=== PATIENT | male | born 1935 | race Caucasian/White ===

== ENCOUNTER 2017-05-27 07:26 | Day surgery (SDC) | payer OTHER ==
[~2017-05-27] VITALS: Ht 188 cm; Wt 101.8 kg
[~2017-05-27 07:26] MED LIST: ATOR80TA45 PO; DITR15TA PO; LISI-515 PO; METO50TA PO; TIMO0.5S30 EACH EYE; WARF-58 PO
[2017-05-27 07:43] VITALS: BP 177/83; PULSE 59; RESP 20; TEMP 98.1; O2SAT 95
[2017-05-27] MEDS ORDERED: GABA300C5 PO (07:51)
[2017-05-27] MEDS ORDERED: SODIUM CHLOR 0.9% 1000 ML IV SCH (08:00)
[2017-05-27] MEDS ORDERED: SODIUM CHLORIDE 2 ML FLUSH PRN IV FLUSH (08:00)
[2017-05-27] MEDS ORDERED: MIDAZOLAM HCL 2 MG/2 ML VIAL ONE (08:33)
[2017-05-27 09:00] VITALS: BP 168/80; PULSE 63; RESP 18; TEMP 97.9; O2SAT 96
[2017-05-27] MEDS ORDERED: SODIUM CHLORIDE 2 ML FLUSH BID IV FLUSH SCH (09:00)
[2017-05-27 09:15] VITALS: BP 140/78; PULSE 60; RESP 18; O2SAT 97
--- NOTE | 2017-05-27 09:18 | PD.RAD ---
Post Procedure Progress Note Pre Procedure Diagnosis: (1) Colon cancer Post Procedure Diagnosis: (1) Colon cancer Procedure Date: May 27, 2017 Supervising Radiologist: Mukesh Swanson Proceduralist/Assist: Ryan Michael, RT(R), Tammy Bosch RT(R) Anesthesia: Conscious Sedation Plan of Activity Patient to Unit: [facility] Patient Condition: Good See PACS Report for procedural detail/treatment Mukesh Swanson MD May 27, 2017 09:18
[2017-05-27 09:45] VITALS: BP 150/74; PULSE 49; RESP 18; O2SAT 97
--- NOTE | 2017-05-27 09:50 | RADRPT ---
EXAM DATE/TIME: 05/27/2017 08:26 [place] COMPARISON: No previous studies available for comparison. INDICATIONS : Patient presents with Prostate cancer and hypermetabolic lesion seen on PET scan of L4. MEDICAL HISTORY : Prostate cancer A fib High cholesterol HTN Glocoma SURGICAL HISTORY : AVR Colonoscopy Vesectomy Colon resection Gallbladder CABG ENCOUNTER: Initial ACUITY: 4 - 6 months PAIN SCORE: 0/10 FLUORO TIME: 1.6 minutes IMAGE SERIES: 1 SEDATION TIME: 30 minutes cc MEDICATION(S): 1.) 2 mg midazolam (Versed) IV 2.) 100 mcg fentanyl (Sublimaze) IV 1.) 11 gauge bone biopsy needle Core specimen(s) was obtained and submitted to laboratory for pathologic evaluation. PROCEDURE : 1. Fluoroscopically guided L4 needle biopsy. 2. Conscious sedation with continuous EKG and Oximetry monitoring. The risks, benefits and alternatives to the procedure were explained and verbal and written consent w as obtained. The site was prepped in sterile fashion. Full sterile technique was used, including cap, mask, steri le gloves and gown and a large sterile sheet. Hand hygiene and 2% chlorhexidine and/or betadine/alco hol prep was utilized per protocol for cutaneous antisepsis. The skin and subcutaneous tissues were infiltrated with local anesthetic solution. With fluoroscopic guidance 11 gauge trocar needle was advanced into the L4 vertebral body using a rig ht transpedicular approach. Single core biopsy was obtained yielding a 2 cm core sample. The needle w as then removed and hemostasis obtained with compression. Conscious sedation was performed with the prescribed dosages and duration as above in the presence of an independent trained radiology nurse to assist in the monitoring of the patient. EKG and oximetry remained stable throughout the procedure. CONCLUSION: Uncomplicated needle biopsy of the L4 vertebral body as above. Mukesh Swanson MD on May 27, 2017 at 9:47 Board Certified Radiologist. This report was verified electronically.
[2017-05-27 10:15] VITALS: BP 146/64; PULSE 53; RESP 18; O2SAT 97
[2017-05-27 10:30] VITALS: BP 149/64; PULSE 48; RESP 18; O2SAT 95
[2017-05-27] MEDS ORDERED: IMPLANTED VASCULAR ACCESS PORT - SODIUM CHLORIDE FLUSH IV FLUSH SCH (10:30)
[2017-05-27] MEDS ORDERED: IMPLANTED VASCULAR ACCESS PORT - SODIUM CHLORIDE FLUSH PRN IV FLUSH (10:30)
== END 2017-05-27 11:15 | disposition home or self-care (01) ==
LOC: HRIP 07:26 → HROP 07:26
PROVIDERS: ATTEND Internal Medicine Hematology & Oncology
DX: S34.124 Incomplete lesion of L4 level of lumbar spinal cord (principal); C61 Malignant neoplasm of prostate; I48.91 Unspecified atrial fibrillation; E78.00 Pure hypercholesterolemia, unspecified; I10 Essential (primary) hypertension; Z95.1 Presence of aortocoronary bypass graft
CPT/HCPCS: 20225; 77002; 88307; 88311; 88341; 88342; 99152; 99153; J1642; J2250; J3010; J7030

== ENCOUNTER 2018-02-10 11:02 | Inpatient (IN) ==
[2018-02-10] MEDS ORDERED: HYDROmorphone PF Inj 4 MG/ML Ampul IM ONE (11:22)
[2018-02-10] MEDS ORDERED: HYDROmorphone PF Inj 2 MG/ML Vial SQ ONE (11:41)
--- NOTE | 2018-02-10 11:45 | ED ---
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 Onset 10 days ago after the patient suffered a mechanical fall. He denies hitting his head or LOC. He states that he has been largely bedbound since the fall due to pain. Pain is sharp, rated 8/10 worsened by certain motions. No alleviating factors reported. The patient denies radiation of the pain. He denies numbness, tingling, weakness of the lower extremities. He denies saddle anesthesia or incontinence. Family members at bedside state that the patient has not taken any BP medications in "at least 3 days." He has a new patient appointment with Dr. Whitehead, neurology, later this month. He is followed by Dr. Terrazas. Related Data Home Medications Medication Instructions Recorded Confirmed atorvastatin 80 mg PO QPM 02/01/18 02/10/18 leuprolide (3 month) [Eligard (3 22.5 mg SUBCUT [id number] 02/01/18 02/10/18 month)] lisinopril 20 mg PO QPM 02/01/18 02/10/18 metoprolol tartrate 50 mg PO BID 02/01/18 02/10/18 oxybutynin chloride 15 mg PO QPM 02/01/18 02/10/18 pregabalin [Lyrica] 75 mg PO HS 02/01/18 02/10/18 capecitabine [Xeloda] 1,500 mg PO Q12H 02/10/18 02/10/18 timolol maleate [Timoptic] 1 drp EACH EYE Q12HR 02/10/18 02/10/18 warfarin [Coumadin] 3 mg PO DAILY 02/10/18 02/10/18 Allergies Allergy/AdvReac Type Severity Reaction Status Date / Time No Known Allergies Allergy Verified 02/01/18 19:28 Review of Systems ROS: all other systems reviewed are negative [facility] Medical History Medical History History of high blood pressure (Acute) History of high cholesterol (Acute) Hx of balanitis (Acute) Hx of malignant neoplasm of colon (Acute) Surgical History Surgical History Hx of artificial heart valve replacement (Acute) Hx of cholecystectomy (Acute) Hx of colonoscopy (Acute) Hx of heart bypass surgery (Acute) Family History Family History Other Family history of hypertension Social History Social History Substance History: No History of Abuse Second Hand Smoke Exposure: No Smoking Status: Never smoker How Often Do You Have a Drink Containing Alcohol: 4 or more times a week Hx Recent Travel: No Recent Travel in [facility] within the Last 8 Weeks: No Recent Out of Country Travel within the Last 8 Weeks: No Exam Narrative Exam Narrative: GENERAL: Well-nourished, well-developed white male in no acute distress. SKIN: Focused skin assessment warm/dry. HEAD: Atraumatic. Normocephalic. EYES: Pupils equal and round. No scleral icterus. No injection or drainage. ENT: No nasal bleeding or discharge. Mucous membranes pink and moist. NECK: Trachea midline. No JVD. CARDIOVASCULAR: Regular rate and rhythm. No murmur appreciated. RESPIRATORY: No accessory muscle use. Clear to auscultation. Breath sounds equal bilaterally. GASTROINTESTINAL: Abdomen soft, non-tender, nondistended. Hepatic and splenic margins not palpable. MUSCULOSKELETAL: No obvious deformities. No clubbing. No cyanosis. No edema. 5 /5 strength in the muscle groups of the lower extremities bilaterally. BACK: Midline tenderness to palpation in the low thoracic versus upper lumbar spine. No CVA tenderness. No paraspinal musculature tenderness. NEUROLOGICAL: Awake and alert. No obvious cranial nerve deficits. Motor grossly within normal limits. Normal speech. PSYCHIATRIC: Appropriate mood and affect; insight and judgment normal. Course Initial Documented Vital Signs Temperature 98 F 02/10/18 11:08 Pulse Rate 91 H 02/10/18 11:08 Respiratory Rate 21 02/10/18 11:08 Blood Pressure 259/120 H 02/10/18 11:08 Pulse Oximetry 95 02/10/18 11:08 Last Documented Vital Signs Temperature 98.1 F 02/11/18 20:00 Pulse Rate 95 H 02/12/18 06:20 Respiratory Rate 17 02/12/18 06:20 Blood Pressure 153/90 H 02/12/18 06:01 Pulse Oximetry 93 L 02/12/18 06:20 Medical Decision Making QUAN Attestation QUAN supervised visit: Yes Attestation: I, Dr. Flores, have reviewed the advance practice practitioner's documentation and am in agreement, met with the patient face to face, made the diagnosis, and the medical decision making was done by me. *My assessment and Findings: Patient received metoprolol and lisinopril here. The blood pressure was still about 230/115. Cardene drip started with excellent blood pressure control achieved shortly thereafter. Unfortunately we will have to keep the patient here for ongoing blood pressure management. The patient received 1 mg of Dilaudid IM as part of the 2 mg IM order set. 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 Onset 10 days ago after the patient suffered a mechanical fall. He states that he has been largely bedbound since the fall due to pain. No red flag symptoms. Patient has been independently ambulatory. Has not taken his BP medications "at least 3 days" per family at bedside. Followed by Dr. Terrazas. He has a new patient appointment with Dr. Whitehead, neurology, later this month. BP 259/120 on presentation. On physical exam patient has midline tenderness to the spine, 5/5 strength in bilateral lower extremities. Patient was administered 2 mg of Dilaudid IM. He was administered 20 mg of lisinopril and 50 mg of metoprolol. On recheck patient reports improvement of his back pain. Blood pressure remains elevated. I discussed the case with Dr. Floers. He recommends Cardene drip. This was administered. Recheck blood pressure 164/92. CBC with no leukocytosis or anemia. RBCs 3.9, improved from 02/02/18. Platelets 172. INR subtherapeutic at 1.4.CBC without acute findings. CT of the lumbar spine shows no progression of the patient's known metastatic disease. There is multilevel degenerative disc disease noted. Dr. Flores spoke with Dr. Ramirez who agrees to accept the patient to the medicine service. Please see medicine notes for disposition. Medical Screen Exam Complete: Yes Emergency Medical Condition: Yes Differential Diagnosis Differential Diagnosis: versusMusculoskeletal pain versus metastatic cancer hypertension versus hypertensive urgency versus other Lab Data Result diagrams: 02/12/18 05:14 02/12/18 05:14 Lab Results 02/10/18 02/10/18 02/10/18 Range/Units 11:15 11:15 11:15 WBC 7.3 (4.0-11.0) th/mm3 RBC 3.90 L (4.50-5.90) mil/mm3 Hgb 13.4 (13.0-17.0) gm/dL Hct 38.9 L (39.0-51.0) % MCV 99.8 (80.0-100.0) fL MCH 34.4 H (27.0-34.0) pg MCHC 34.5 (32.0-36.0) % RDW 14.6 (11.6-17.2) % Plt Count 172 D (150-450) th/mm3 MPV 8.0 (7.0-11.0) fL Neut % (Auto) 82.8 H (16.0-70.0) % Lymph % (Auto) 7.3 L (9.0-44.0) % Jennings % (Auto) 9.2 H (0.0-8.0) % Eos % (Auto) 0.4 (0.0-4.0) % Baso % (Auto) 0.3 (0.0-2.0) % Neut # (Auto) 6.0 (1.8-7.7) th/mm3 Lymph # (Auto) 0.5 L (1.0-4.8) th/mm3 Jennings # (Auto) 0.7 (0.0-0.9) th/mm3 Eos # (Auto) 0.0 (0.0-0.4) th/mm3 Baso # (Auto) 0.0 (0.0-0.2) th/mm3 WBC Differential . Differential Comment Auto diff final PT 13.7 H (9.8-11.6) sec INR 1.4 Ratio Sodium 136 (136-145) meq/L Potassium 4.4 (3.5-5.1) meq/L Chloride 103 (98-107) meq/L Carbon Dioxide 26.2 (21.0-32.0) meq/L Anion Gap 7 (5-15) meq/L BUN 17 (7-18) mg/dL Creatinine 0.72 (0.60-1.30) mg/dL Estimated GFR Greater than 89 (>89) mL/min Random Glucose 126 H (74-106) mg/dL Hemoglobin A1c (4.3-6.0) % Calcium 9.5 (8.5-10.1) mg/dL Phosphorus (2.5-4.9) mg/dL Magnesium (1.5-2.5) mg/dL Total Bilirubin 1.6 H (0.2-1.0) mg/dL AST 24 (15-37) U/L ALT 22 (12-78) U/L Alkaline Phosphatase 114 (45-117) U/L Total Creatine Kinase (39-308) U/L Troponin I (0.02-0.05) ng/mL Total Protein 6.8 (6.4-8.2) g/dL Albumin 3.4 (3.4-5.0) g/dL Lipase 31 L (73-393) U/L Carcinoembryonic Ag (0.2-5.0) ng/mL Prostate Specific Ag (0.00-4.00) ng/mL Vitamin B12 (193-986) pg/mL TSH (0.358-3.740) uIU/mL Free T4 (0.76-1.46) ng/dL Nasal Screen MRSA (PCR) (Negative) 02/10/18 02/10/18 02/10/18 Range/Units 18:40 22:40 23:20 WBC (4.0-11.0) th/mm3 RBC (4.50-5.90) mil/mm3 Hgb (13.0-17.0) gm/dL Hct (39.0-51.0) % MCV (80.0-100.0) fL MCH (27.0-34.0) pg MCHC (32.0-36.0) % RDW (11.6-17.2) % Plt Count (150-450) th/mm3 MPV (7.0-11.0) fL Neut % (Auto) (16.0-70.0) % Lymph % (Auto) (9.0-44.0) % Jennings % (Auto) (0.0-8.0) % Eos % (Auto) (0.0-4.0) % Baso % (Auto) (0.0-2.0) % Neut # (Auto) (1.8-7.7) th/mm3 Lymph # (Auto) (1.0-4.8) th/mm3 Jennings # (Auto) (0.0-0.9) th/mm3 Eos # (Auto) (0.0-0.4) th/mm3 Baso # (Auto) (0.0-0.2) th/mm3 WBC Differential Differential Comment PT (9.8-11.6) sec INR Ratio Sodium 138 (136-145) meq/L Potassium 4.1 (3.5-5.1) meq/L Chloride 103 (98-107) meq/L Carbon Dioxide 28.6 (21.0-32.0) meq/L Anion Gap 6 (5-15) meq/L BUN 20 H (7-18) mg/dL Creatinine 0.70 (0.60-1.30) mg/dL Estimated GFR Greater than 89 (>89) mL/min Random Glucose 124 H (74-106) mg/dL Hemoglobin A1c (4.3-6.0) % Calcium 8.8 (8.5-10.1) mg/dL Phosphorus 2.8 (2.5-4.9) mg/dL Magnesium 1.8 (1.5-2.5) mg/dL Total Bilirubin 1.3 H (0.2-1.0) mg/dL AST 21 (15-37) U/L ALT 18 (12-78) U/L Alkaline Phosphatase 106 (45-117) U/L Total Creatine Kinase 50 42 (39-308) U/L Troponin I Less than 0.02 L 0.02 (0.02-0.05) ng/mL Total Protein 6.3 L (6.4-8.2) g/dL Albumin 3.0 L (3.4-5.0) g/dL Lipase (73-393) U/L Carcinoembryonic Ag (0.2-5.0) ng/mL Prostate Specific Ag (0.00-4.00) ng/mL Vitamin B12 (193-986) pg/mL TSH (0.358-3.740) uIU/mL Free T4 (0.76-1.46) ng/dL Nasal Screen MRSA (PCR) Not detected (Negative) 02/11/18 02/11/18 02/11/18 Range/Units 03:39 03:39 03:39 WBC 8.6 (4.0-11.0) th/mm3 RBC 3.71 L (4.50-5.90) mil/mm3 Hgb 12.7 L (13.0-17.0) gm/dL Hct 36.8 L (39.0-51.0) % MCV 99.2 (80.0-100.0) fL MCH 34.2 H (27.0-34.0) pg MCHC 34.4 (32.0-36.0) % RDW 14.3 (11.6-17.2) % Plt Count 178 (150-450) th/mm3 MPV 8.3 (7.0-11.0) fL Neut % (Auto) 84.2 H (16.0-70.0) % Lymph % (Auto) 6.3 L (9.0-44.0) % Jennings % (Auto) 8.4 H (0.0-8.0) % Eos % (Auto) 0.6 (0.0-4.0) % Baso % (Auto) 0.5 (0.0-2.0) % Neut # (Auto) 7.2 (1.8-7.7) th/mm3 Lymph # (Auto) 0.5 L (1.0-4.8) th/mm3 Jennings # (Auto) 0.7 (0.0-0.9) th/mm3 Eos # (Auto) 0.1 (0.0-0.4) th/mm3 Baso # (Auto) 0.0 (0.0-0.2) th/mm3 WBC Differential . Differential Comment Auto diff final PT 14.6 H (9.8-11.6) sec INR 1.4 Ratio Sodium 137 (136-145) meq/L Potassium 3.8 (3.5-5.1) meq/L Chloride 104 (98-107) meq/L Carbon Dioxide 25.7 (21.0-32.0) meq/L Anion Gap 7 (5-15) meq/L BUN 20 H (7-18) mg/dL Creatinine 0.66 (0.60-1.30) mg/dL Estimated GFR Greater than 89 (>89) mL/min Random Glucose 122 H (74-106) mg/dL Hemoglobin A1c (4.3-6.0) % Calcium 8.8 (8.5-10.1) mg/dL Phosphorus 2.4 L (2.5-4.9) mg/dL Magnesium 1.8 (1.5-2.5) mg/dL Total Bilirubin 1.7 H (0.2-1.0) mg/dL AST 18 (15-37) U/L ALT 21 (12-78) U/L Alkaline Phosphatase 100 (45-117) U/L Total Creatine Kinase (39-308) U/L Troponin I (0.02-0.05) ng/mL Total Protein 6.2 L (6.4-8.2) g/dL Albumin 3.0 L (3.4-5.0) g/dL Lipase (73-393) U/L Carcinoembryonic Ag (0.2-5.0) ng/mL Prostate Specific Ag (0.00-4.00) ng/mL Vitamin B12 (193-986) pg/mL TSH 0.364 (0.358-3.740) uIU/mL Free T4 1.68 H (0.76-1.46) ng/dL Nasal Screen MRSA (PCR) (Negative) 02/11/18 02/11/18 02/11/18 Range/Units 03:39 03:39 03:39 WBC (4.0-11.0) th/mm3 RBC (4.50-5.90) mil/mm3 Hgb (13.0-17.0) gm/dL Hct (39.0-51.0) % MCV (80.0-100.0) fL MCH (27.0-34.0) pg MCHC (32.0-36.0) % RDW (11.6-17.2) % Plt Count (150-450) th/mm3 MPV (7.0-11.0) fL Neut % (Auto) (16.0-70.0) % Lymph % (Auto) (9.0-44.0) % Jennings % (Auto) (0.0-8.0) % Eos % (Auto) (0.0-4.0) % Baso % (Auto) (0.0-2.0) % Neut # (Auto) (1.8-7.7) th/mm3 Lymph # (Auto) (1.0-4.8) th/mm3 Jennings # (Auto) (0.0-0.9) th/mm3 Eos # (Auto) (0.0-0.4) th/mm3 Baso # (Auto) (0.0-0.2) th/mm3 WBC Differential Differential Comment PT (9.8-11.6) sec INR Ratio Sodium (136-145) meq/L Potassium (3.5-5.1) meq/L Chloride (98-107) meq/L Carbon Dioxide (21.0-32.0) meq/L Anion Gap (5-15) meq/L BUN (7-18) mg/dL Creatinine (0.60-1.30) mg/dL Estimated GFR (>89) mL/min Random Glucose (74-106) mg/dL Hemoglobin A1c 5.3 (4.3-6.0) % Calcium (8.5-10.1) mg/dL Phosphorus (2.5-4.9) mg/dL Magnesium (1.5-2.5) mg/dL Total Bilirubin (0.2-1.0) mg/dL AST (15-37) U/L ALT (12-78) U/L Alkaline Phosphatase (45-117) U/L Total Creatine Kinase (39-308) U/L Troponin I (0.02-0.05) ng/mL Total Protein (6.4-8.2) g/dL Albumin (3.4-5.0) g/dL Lipase (73-393) U/L Carcinoembryonic Ag 20.0 H (0.2-5.0) ng/mL Prostate Specific Ag (0.00-4.00) ng/mL Vitamin B12 273 (193-986) pg/mL TSH (0.358-3.740) uIU/mL Free T4 (0.76-1.46) ng/dL Nasal Screen MRSA (PCR) (Negative) 02/11/18 02/12/18 02/12/18 Range/Units 03:39 05:14 05:14 WBC 7.4 (4.0-11.0) th/mm3 RBC 3.78 L (4.50-5.90) mil/mm3 Hgb 12.8 L (13.0-17.0) gm/dL Hct 36.9 L (39.0-51.0) % MCV 97.5 (80.0-100.0) fL MCH 33.8 (27.0-34.0) pg MCHC 34.7 (32.0-36.0) % RDW 14.8 (11.6-17.2) % Plt Count 223 (150-450) th/mm3 MPV 8.4 (7.0-11.0) fL Neut % (Auto) 73.6 H (16.0-70.0) % Lymph % (Auto) 14.7 (9.0-44.0) % Jennings % (Auto) 8.1 H (0.0-8.0) % Eos % (Auto) 2.8 (0.0-4.0) % Baso % (Auto) 0.8 (0.0-2.0) % Neut # (Auto) 5.5 (1.8-7.7) th/mm3 Lymph # (Auto) 1.1 (1.0-4.8) th/mm3 Jennings # (Auto) 0.6 (0.0-0.9) th/mm3 Eos # (Auto) 0.2 (0.0-0.4) th/mm3 Baso # (Auto) 0.1 (0.0-0.2) th/mm3 WBC Differential . Differential Comment Auto diff final PT 16.1 H (9.8-11.6) sec INR 1.6 Ratio Sodium (136-145) meq/L Potassium (3.5-5.1) meq/L Chloride (98-107) meq/L Carbon Dioxide (21.0-32.0) meq/L Anion Gap (5-15) meq/L BUN (7-18) mg/dL Creatinine (0.60-1.30) mg/dL Estimated GFR (>89) mL/min Random Glucose (74-106) mg/dL Hemoglobin A1c (4.3-6.0) % Calcium (8.5-10.1) mg/dL Phosphorus (2.5-4.9) mg/dL Magnesium (1.5-2.5) mg/dL Total Bilirubin (0.2-1.0) mg/dL AST (15-37) U/L ALT (12-78) U/L Alkaline Phosphatase (45-117) U/L Total Creatine Kinase (39-308) U/L Troponin I (0.02-0.05) ng/mL Total Protein (6.4-8.2) g/dL Albumin (3.4-5.0) g/dL Lipase (73-393) U/L Carcinoembryonic Ag (0.2-5.0) ng/mL Prostate Specific Ag 4.37 H (0.00-4.00) ng/mL Vitamin B12 (193-986) pg/mL TSH (0.358-3.740) uIU/mL Free T4 (0.76-1.46) ng/dL Nasal Screen MRSA (PCR) (Negative) 02/12/18 Range/Units 05:14 WBC (4.0-11.0) th/mm3 RBC (4.50-5.90) mil/mm3 Hgb (13.0-17.0) gm/dL Hct (39.0-51.0) % MCV (80.0-100.0) fL MCH (27.0-34.0) pg MCHC (32.0-36.0) % RDW (11.6-17.2) % Plt Count (150-450) th/mm3 MPV (7.0-11.0) fL Neut % (Auto) (16.0-70.0) % Lymph % (Auto) (9.0-44.0) % Jennings % (Auto) (0.0-8.0) % Eos % (Auto) (0.0-4.0) % Baso % (Auto) (0.0-2.0) % Neut # (Auto) (1.8-7.7) th/mm3 Lymph # (Auto) (1.0-4.8) th/mm3 Jennings # (Auto) (0.0-0.9) th/mm3 Eos # (Auto) (0.0-0.4) th/mm3 Baso # (Auto) (0.0-0.2) th/mm3 WBC Differential Differential Comment PT (9.8-11.6) sec INR Ratio Sodium 138 (136-145) meq/L Potassium 4.0 (3.5-5.1) meq/L Chloride 104 (98-107) meq/L Carbon Dioxide 26.9 (21.0-32.0) meq/L Anion Gap 7 (5-15) meq/L BUN 26 H (7-18) mg/dL Creatinine 0.66 (0.60-1.30) mg/dL Estimated GFR Greater than 89 (>89) mL/min Random Glucose 91 (74-106) mg/dL Hemoglobin A1c (4.3-6.0) % Calcium 9.1 (8.5-10.1) mg/dL Phosphorus 3.2 (2.5-4.9) mg/dL Magnesium 2.0 (1.5-2.5) mg/dL Total Bilirubin 1.5 H (0.2-1.0) mg/dL AST 28 (15-37) U/L ALT 25 (12-78) U/L Alkaline Phosphatase 110 (45-117) U/L Total Creatine Kinase (39-308) U/L Troponin I (0.02-0.05) ng/mL Total Protein 6.5 (6.4-8.2) g/dL Albumin 3.1 L (3.4-5.0) g/dL Lipase (73-393) U/L Carcinoembryonic Ag (0.2-5.0) ng/mL Prostate Specific Ag (0.00-4.00) ng/mL Vitamin B12 (193-986) pg/mL TSH (0.358-3.740) uIU/mL Free T4 (0.76-1.46) ng/dL Nasal Screen MRSA (PCR) (Negative) Imaging Data Radiologist's impression: Lumbar Spine MRI 02/10/18 00:00 CONCLUSION: 1. Large infiltrative lesion of L4 again noted without pathologic fracture or perceptible extraosseous mass. No tumor-associated foraminal or spinal stenosis seen. 2. A new metastatic lesion as developed of the T12 vertebral body and please refer to the thoracic spine MRI report. 3. Multilevel degenerative changes as described, not significantly changed from longus. Thoracic Spine MRI 02/10/18 00:00 CONCLUSION: 1. Since October, a 2.7 cm metastatic lesion has developed of the T12 vertebral body and there is a mild pathologic compression fracture that appears acute or subacute. A benign-appearing mild compression fracture has developed of T12. 2. Considerable edema of the T12/L1 disc but without significant enhancement and there is vacuum phenomena on the comparison CT may be against infectious discitis. 3. No high-grade foraminal or spinal stenosis of the thoracic spine. Thoracic Spine CT 02/10/18 12:02 CONCLUSION: 1. Degenerative changes throughout the thoracic spine but no acute thoracic spine abnormality is identified. 2. Small left pleural effusion. Lumbar Spine CT 02/10/18 12:03 CONCLUSION: 1. No acute lumbar spine abnormality is identified. There is a stable abnormal sclerosis of the L4 vertebral body likely representing a metastatic bone lesion. No compression fracture is present. 2. Severe multilevel degenerative disc disease, as above, with spinal canal narrowing at L2-L3, L3-L4, and L4-L5. There is neural foraminal narrowing are also present, as above. Discharge Plan Discharge Disposition Patient Disposition: ED Admit(ED Internal Use Only) Discharge Order Discharge Orders: ED Use Only Admit Order (Routine); Ordered 02/10/18 Ordered By: Cheri Singletary Physicians Team ED Provider: Sudheer Flores ED Midlevel Provider: Cheri Singeltary Primary Care Provider: Reyna Pastor Attending Provider: Nichelle Pavon Other Providers: Luis Terrazas ; Edgar Linton ; Darrell Hill ; Fransisco Gutierrez ; Lucie Cha ; [employer] Status ED Status: Left Department Discharge Information Discharge Date/Time: 02/10/18 23:24
[2018-02-10] MEDS ORDERED: Lisinopril 20 MG Tablet PO ONE (11:53)
[2018-02-10] MEDS ORDERED: Metoprolol Tartrate 50 MG Tablet PO ONE ×2 (11:53→12:02)
[2018-02-10 12:26] LABS: Baso % (Auto) 0.3 % (0.0-2.0); Eos % (Auto) 0.4 % (0.0-4.0); Hematocrit 38.9 % (39.0-51.0); Hemoglobin 13.4 gm/dL (13.0-17.0); Lymph # (Auto) 0.5 th/mm3 (1.0-4.8); Lymph % (Auto) 7.3 % (9.0-44.0); Mean Corpuscular HGB Conc 34.5 % (32.0-36.0); Mean Corpuscular Hemoglobin 34.4 pg (27.0-34.0); Mean Corpuscular Volume 99.8 fL (80.0-100.0); Mono # (Auto) 0.7 th/mm3 (0.0-0.9); Mono % (Auto) 9.2 % (0.0-8.0); Neut % (Auto) 82.8 % (16.0-70.0); Platelet Count 172 th/mm3 (150-450); Red Cell Distribution Width 14.6 % (11.6-17.2); White Blood Count 7.3 th/mm3 (4.0-11.0)
[2018-02-10 12:36] LABS: INR 1.4 Ratio; Prothrombin Time 13.7 sec (9.8-11.6)
[2018-02-10 12:45] LABS: Alanine Aminotransferase 22 U/L (12-78); Albumin 3.4 g/dL (3.4-5.0); Anion Gap 7 meq/L (5-15); Aspartate Aminotransferase 24 U/L (15-37); Blood Urea Nitrogen 17 mg/dL (7-18); Calcium 9.5 mg/dL (8.5-10.1); Carbon Dioxide 26.2 meq/L (21.0-32.0); Chloride 103 meq/L (98-107); Glomerular Filtration Rate Greater Than 89 mL/min (>89); Glucose,Random 126 mg/dL (74-106); Lipase 31 U/L (73-393); Potassium 4.4 meq/L (3.5-5.1); Sodium 136 meq/L (136-145)
[2018-02-10 12:48] LABS: Alkaline Phosphatase 114 U/L (45-117); Total Protein 6.8 g/dL (6.4-8.2)
--- NOTE | 2018-02-10 14:10 | CT ---
EXAM DATE: 02/10/2018 1:45 PM EST AGE/SEX: 82 years / Male INDICATIONS: Patient fell 2 days ago, increased low back pain. History of metastatic disease to spin e CLINICAL DATA: This is the patient's initial encounter. Patient reports that signs and symptoms have been present for 2 days and indicates a pain score of 8/10. MEDICAL/SURGICAL HISTORY: Carcinoma, colon. Metastatic disease. CABG. RADIATION DOSE: 31.45 CTDI (mGy) COMPARISON: POI, MR LUMBAR SPINE W AND W/O CONTRAST, 11/05/2017. . TECHNIQUE: Contiguous axial images were acquired with a multirow detector CT scanner without contras t. Multiplanar reconstructions in the sagittal and coronal plane were also performed. Using automate d exposure control and adjustment of the mA and/or kV according to patient size, radiation dose was k ept as low as reasonably achievable to obtain optimal diagnostic quality images. DICOM format image data is available electronically for review and comparison. FINDINGS: Vertebrae: No fracture or compression deformity. There is abnormal increased density throughout the L4 vertebral body. Remaining levels demonstrate no abnormal bone lesions. There are bulky endplate os teophytes at multiple levels. Alignment: No anterolisthesis or retrolisthesis. T12-L1: There is a mild diffuse disc bulge with vacuum disc. No significant spinal canal stenosis or neural foraminal narrowing is present. L1-L2: Decreased disc height with endplate osteophytes anteriorly and diffuse disc bulge with left p aracentral disc osteophyte. The left lateral recess is effaced. No spinal canal stenosis or neural fo raminal narrowing is present. Findings at this level have not significantly changed. L2-L3: Decreased disc height with endplate osteophytes and a diffuse disc bulge with mild facet and ligamentum flavum hypertrophy. The extruded disc documented on the prior examination is not well appr eciated on this study but the prior examination documented severe spinal canal stenosis. L3-L4: Decreased disc height with endplate osteophytes and a diffuse disc bulge and mild facet hyper trophy. Spinal canal is at least moderately narrowed secondary to the diffuse disc bulge and there is mild bilateral neural foraminal narrowing. Findings at this level do not appear significantly change d. L4-L5: Decreased disc height with endplate osteophytes and a diffuse disc bulge. There is moderate f acet hypertrophy. Spinal canal is likely mildly narrowed similar to the prior study and there is mode rate neural foraminal narrowing bilaterally. Findings at this level do not appear significantly singh ed. L5-S1: Decreased disc height with central to right paracentral disc osteophyte complex which abuts t he right S1 nerve root. No significant spinal canal stenosis is present. Neural foramina appear moder ately narrowed. Other: The visualized surrounding structures demonstrate no acute abnormality. There is severe athero sclerotic disease. CONCLUSION: 1. No acute lumbar spine abnormality is identified. There is a stable abnormal sclerosis of the L4 v ertebral body likely representing a metastatic bone lesion. No compression fracture is present. 2. Severe multilevel degenerative disc disease, as above, with spinal canal narrowing at L2-L3, L3-L 4, and L4-L5. There is neural foraminal narrowing are also present, as above. Electronically signed by: Sancho Cole MD 02/10/2018 2:09 PM EST
[2018-02-10] MEDS: niCARdipine Inj 25 MG in Sodium Chlor 0.9% Inj 240 ML IV.CONT PRN ×2 (14:57→19:38)
--- NOTE | 2018-02-10 15:00 | CT ---
EXAM DATE: 02/10/2018 1:53 PM EST AGE/SEX: 82 years / Male INDICATIONS: Fall Saturday low back pain, history of metastatic disease to spine CLINICAL DATA: This is the patient's initial encounter. Patient reports that signs and symptoms have been present for 1 day and indicates a pain score of 8/10. MEDICAL/SURGICAL HISTORY: Carcinoma, colon. Metastatic disease. CABG. Heart valve RADIATION DOSE: 31.45 CTDI (mGy) COMPARISON: No prior exams available for comparison. TECHNIQUE: Contiguous axial images were acquired using a multirow detector CT scanner without contra st. Multiplanar reconstruction in the sagittal and coronal planes was performed. Using automated exp osure control and adjustment of the mA and/or kV according to patient size, radiation dose was kept a s low as reasonably achievable to obtain optimal diagnostic quality images. DICOM format image data is available electronically for review and comparison. FINDINGS: There is normal sagittal spinal alignment. No fracture or compression deformity is present. No marii listhesis or retrolisthesis is present. There are flowing anterior syndesmophytes and there is ossifi cation along the spinous processes posteriorly. Mild degenerative disc disease is present at multiple levels but no spinal canal stenosis is identified. No focal bone lesion is seen. The surrounding structures demonstrate a small left pleural effusion and severe atherosclerotic disea se. Visualized ribs demonstrate no fracture. CONCLUSION: 1. Degenerative changes throughout the thoracic spine but no acute thoracic spine abnormality is kaylah ntified. 2. Small left pleural effusion. Electronically signed by: Sancho Cole MD 02/10/2018 2:59 PM EST
[2018-02-10] MEDS ORDERED: oxyCODONE/Acetaminophen 10/325 Tablet PO PRN (16:23)
[2018-02-10] MEDS ORDERED: Acetaminophen 325 MG Tablet PO PRN ×3 (16:23)
[2018-02-10] MEDS ORDERED: Naloxone Inj 0.4 MG/ML Vial IV.PUSH PRN (16:23)
[2018-02-10] MEDS ORDERED: Bisacodyl 10 MG Supp RECTAL PRN (16:23)
[2018-02-10] MEDS ORDERED: Morphine Inj 4 MG/ML Vial IV.PUSH PRN ×3 (16:23)
--- NOTE | 2018-02-10 17:07 | P.HPIM ---
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 Patient states this is been going on for at least the past 10 days, when he suffered a mechanical fall. Patient denied hitting his head or any loss of consciousness. States that he has been largely bedbound since that time due to pain. Patient states that pain is sharp with at least an 8 out of 10 worsened by motion And movements. Nothing has really alleviated the back pain. The patient denies any radiation of the pain. He denies any numbness, he denies any tingling, he denies any weakness of the lower extremities, he denies any saddle anesthesia or incontinence. He has a new patient appointment with Dr. Whitehead of neurology later this month is followed by Dr. Terrazas of oncology. Patient's pain became under somewhat control but then it was noted that his blood pressure was elevated over 250 systolic and patient was started on a Cardene drip after his oral medications were started and did not come close to getting his blood pressure under control. Therefore patient is admitted to the ICU on a Cardene drip will have other medications and try to wean him off. His past medical history is significant for hyperlipidemia prostate cancer hypertension overflow incontinence, neuropathy, colon cancer, glaucoma, and chronic anticoagulation for atrial fibrillation as well as history of mechanical heart valve also has a history of high cholesterol history of balanitis and history of malignant neoplasm of the colon. Has had a cholecystectomy as well as a colonoscopy and heart bypass surgery Patient denies any tobacco or alcohol. Family history is significant for hypertension also Review of Systems All other systems reviewed negative except as stated in HPI PMFSH - History History Provided By: Patient, Family Member, Engineering Aid / EMT - Medical History Medical History: Medical History (Last Reviewed 02/10/18 @ 16:57 by Claude Taylor DO) History of high blood pressure History of high cholesterol Hx of balanitis Hx of malignant neoplasm of colon - Surgical History Surgical History: Surgical History (Last Reviewed 02/10/18 @ 16:57 by Claude Taylor DO) Hx of artificial heart valve replacement Hx of cholecystectomy Hx of colonoscopy Hx of heart bypass surgery - Family History Family History: Family History (Last Updated 02/10/18 @ 16:57 by Claude Taylor DO) Other Family history of hypertension - Social History I have reviewed the patient's Social History: Yes - Tobacco History Second Hand Smoke Exposure: No Tobacco Use In Past 30 Days: No Smoking Status: Never smoker - Alcohol History How Often Do You Have a Drink Containing Alcohol: Monthly or less - Substance Use History Substance History: No History of Abuse - Travel History History of Recent Travel: No Recent Travel in the [place] Within the Last 8 Weeks: No Recent Travel Out of the Country Within the Last 8 Weeks: No - Immunization History Tetanus Immunization: <5 Years Medications and Allergies Active Medications: Active Medications Acetaminophen (Tylenol) 650 mg PO Q4H PRN PRN Reason: Temp > 100.4 Acetaminophen (Tylenol) 650 mg PO Q6H PRN PRN Reason: PAIN 1-10 AND/OR FEVER >101F Acetaminophen (Tylenol) 650 mg PO Q6HR PRN PRN Reason: PAIN SCALE 1 TO 2 Al Hydroxide/Mg Hydroxide (Milk Of Anisha Pittman) 30 ml PO Q12H PRN PRN Reason: Mild Constipation Atorvastatin Calcium (Lipitor) 80 mg PO QPM [facility] Bisacodyl (Dulcolax Supp) 10 mg RECTAL DAILY PRN PRN Reason: SEVERE CONSITIPATION Chlorhexidine Gluconate (Chlorhexidine 2% Cloth) 3 pack TOPICAL DAILY@0400 [facility] Stop: 02/16/18 03:59 Chlorhexidine Gluconate (Chlorhexidine 2% Cloth) 3 pack TOPICAL DAILY@0400 PRN PRN Reason: Extra cloth needed Stop: 02/16/18 03:59 Clonidine HCl (Catapres) 0.1 mg PO Q6H PRN PRN Reason: HYPERTENSION Enoxaparin Sodium (Lovenox Inj) 100 mg SQ Q12HR [facility] Famotidine (Pepcid) 20 mg PO BID [facility] Famotidine (Pepcid Pf Inj) 20 mg IV.PUSH Q12HR [facility] Hydralazine HCl (Apresoline Inj) 20 mg IV.PUSH Q4H PRN PRN Reason: SBP>160, DBP>90 Nicardipine HCl 25 mg/ Sodium (Chloride) 250 mls @ 50 mls/hr IV.CONT TITRATE PRN; Protocol PRN Reason: Per Protocol Last Admin: 02/10/18 14:57 Dose: 5 mg/hr, 50 mls/hr Lactulose (Lactulose Liq) 30 ml PO DAILY PRN PRN Reason: SEVERE CONSITIPATION Lisinopril (Prinivil) 20 mg PO QPM [facility] Methocarbamol (Robaxin) 1,000 mg PO Q8HR [facility] Metoprolol Tartrate (Lopressor) 50 mg PO BID [facility] Morphine Sulfate (Morphine Inj) 2 mg IV.PUSH Q3H PRN PRN Reason: PAIN 3-5; IF UABLE TO TAKE PO Morphine Sulfate (Morphine Inj) 4 mg IV.PUSH Q3H PRN PRN Reason: BREAKTHROUGH PAIN Morphine Sulfate (Morphine Inj) 4 mg IV.PUSH Q1H PRN PRN Reason: Pain Scale 7-10 (Intractable) Morphine Sulfate (Morphine Inj) 4 mg IV.PUSH Q3H PRN PRN Reason: PAIN 6-10;IF UNABLE TO TAKE PO Naloxone HCl (Narcan Inj) 0.4 mg IV.PUSH UNSCH PRN PRN Reason: SEE LABEL COMMENTS Non-Formulary Medication (Capecitabine [Xeloda]) 1,500 mg PO Q12H [facility] Non-Formulary Medication (Oxybutynin Chloride [Oxybutynin Chloride]) 15 mg PO QPM [facility] Ondansetron HCl (Zofran Inj) 4 mg IV.PUSH Q6H PRN PRN Reason: NAUSEA OR VOMITING Ondansetron HCl (Zofran Inj) 4 mg IV.PUSH Q6H PRN PRN Reason: NAUSEA OR VOMITING Oxycodone/Acetaminophen (Percocet 10/325 Mg) 1 tab PO Q6H PRN PRN Reason: PAIN SCALE 6 TO 10 Oxycodone/Acetaminophen (Percocet 5/325 Mg) 1 tab PO Q6H PRN PRN Reason: PAIN SCALE 3 TO 5 Pregabalin (Lyrica) 75 mg PO HS [facility] Senna/Docusate Sodium (Marlena-Colace) 1 tab PO BID [facility] Sennosides (Senokot) 17.2 mg PO Q12H PRN PRN Reason: Moderate Constipation Sodium Chloride (Ns Flush) 2 ml IV.FLUSH BID [facility] Sodium Chloride (Ns Flush) 2 ml IV.FLUSH PRN PRN PRN Reason: FLUSH AFTER USING IV ACCESS Sodium Chloride (Ns Flush) 2 ml IV.FLUSH BID [facility] Sodium Chloride (Ns Flush) 2 ml IV.FLUSH PRN PRN PRN Reason: FLUSH AFTER USING IV ACCESS Timolol Maleate (Timolol 0.25% Drops) drops EACH EYE Q12HR [facility] Warfarin Sodium (Coumadin) 5 mg PO BID [facility] Allergies Allergy/AdvReac Type Severity Reaction Status Date / Time No Known Allergies Allergy Verified 02/01/18 19:28 Home Medications Medication Instructions Recorded Confirmed Type atorvastatin 80 mg PO QPM 02/01/18 02/10/18 History leuprolide (3 month) [Eligard (3 22.5 mg SUBCUT [id number] 02/01/18 02/10/18 History month)] lisinopril 20 mg PO QPM 02/01/18 02/10/18 History metoprolol tartrate 50 mg PO BID 02/01/18 02/10/18 History oxybutynin chloride 15 mg PO QPM 02/01/18 02/10/18 History pregabalin [Lyrica] 75 mg PO HS 02/01/18 02/10/18 History capecitabine [Xeloda] 1,500 mg PO Q12H 02/10/18 02/10/18 History timolol maleate [Timoptic] 1 drp EACH EYE Q12HR 02/10/18 02/10/18 History warfarin [Coumadin] 5 mg PO BID 02/10/18 02/10/18 History Exam Vital signs: Vital Signs 02/10/18 11:08 02/10/18 11:30 02/10/18 11:54 Temperature 98 F Pulse Rate 91 H 95 H 88 Respiratory Rate 21 19 17 Blood Pressure 259/120 H 242/114 H 252/112 H Pulse Oximetry 95 95 98 02/10/18 11:55 02/10/18 13:00 02/10/18 14:22 Temperature Pulse Rate 98 H 87 88 Respiratory Rate 18 18 16 Blood Pressure 252/112 H 237/107 H 246/115 H Pulse Oximetry 96 98 02/10/18 14:59 02/10/18 15:10 02/10/18 15:30 Temperature Pulse Rate 87 91 H 80 Respiratory Rate 18 18 18 Blood Pressure 164/92 H 165/96 H 164/74 H Pulse Oximetry 96 95 99 02/10/18 16:23 02/10/18 16:44 Temperature Pulse Rate Respiratory Rate Blood Pressure Pulse Oximetry 96 96 Intake & Output 02/09/18 02/10/18 02/10/18 18:59 06:59 18:59 Weight 99.79 kg Narrative: GENERAL: Awake alert and oriented x3 talkative and cooperative appears to be in some distress SKIN: Warm and dry. HEAD: Atraumatic. Normocephalic. EYES: Pupils equal and round. No scleral icterus. No injection or drainage. EOMI ENT: No nasal bleeding or discharge. Mucous membranes pink and moist. Tongue is midline NECK: Trachea midline. No JVD. Supple CARDIOVASCULAR: IRRegular rate and rhythm. S1-S2 no S3 or S4 positive click mechanical RESPIRATORY: No accessory muscle use. Clear to auscultation. Breath sounds equal bilaterally. GASTROINTESTINAL: Abdomen soft, non-tender, nondistended. Hepatic and splenic margins not palpable. MUSCULOSKELETAL: Extremities without clubbing, cyanosis, or edema. No obvious deformities. NEUROLOGICAL: Awake and alert. No obvious cranial nerve deficits. Motor grossly within normal limits. Five out of 5 muscle strength in the arms and legs. Normal speech. PSYCHIATRIC: Appropriate mood and affect; insight and judgment normal. Decreased range of motion secondary to back pain Results - Labs CBC & Chem 7: 02/10/18 11:15 02/10/18 11:15 Labs: Short CBC 02/10/18 Range/Units 11:15 WBC 7.3 (4.0-11.0) th/mm3 Hgb 13.4 (13.0-17.0) gm/dL Hct 38.9 L (39.0-51.0) % Plt Count 172 D (150-450) th/mm3 BMP 02/10/18 11:15 Sodium 136 Potassium 4.4 Chloride 103 Carbon Dioxide 26.2 BUN 17 Creatinine 0.72 Calcium 9.5 Liver Function 02/10/18 Range/Units 11:15 Total Bilirubin 1.6 H (0.2-1.0) mg/dL AST 24 (15-37) U/L ALT 22 (12-78) U/L Alkaline Phosphatase 114 (45-117) U/L Albumin 3.4 (3.4-5.0) g/dL - Imaging Impressions Thoracic Spine CT 02/10/18 12:02 CONCLUSION: 1. Degenerative changes throughout the thoracic spine but no acute thoracic spine abnormality is identified. 2. Small left pleural effusion. Lumbar Spine CT 02/10/18 12:03 CONCLUSION: 1. No acute lumbar spine abnormality is identified. There is a stable abnormal sclerosis of the L4 vertebral body likely representing a metastatic bone lesion. No compression fracture is present. 2. Severe multilevel degenerative disc disease, as above, with spinal canal narrowing at L2-L3, L3-L4, and L4-L5. There is neural foraminal narrowing are also present, as above. Caprini VTE Risk Assessment Caprini VTE Risk Assessment: Moderate/High Risk (score >= 2) Caprini Risk Assessment Model: Point Value = 1 Point Value = 2 Point Value = 3 Point Value = 5 Age 41-60 Minor surgery BMI > 25 kg/m2 Swollen legs Varicose veins or History of unexplained or recurrent spontaneous Oral contraceptives or hormone replacement Sepsis (< 1 month) Serious lung disease, including pneumonia (< 1 month) Abnormal pulmonary function Acute myocardial infarction Congestive heart failure (< 1 month) History of inflammatory bowel disease Medical patient at bed rest Age 61-74 Arthroscopic surgery Major open surgery (> 45 min) Laparoscopic surgery (> 45 min) Malignancy Confined to bed (> 72 hours) Immobilizing plaster cast Central venous access Age >= 75 History of VTE Family history of VTE Factor V Leiden Prothrombin [id number] Lupus anticoagulant Anticardiolipin antibodies Elevated serum homocysteine Heparin-induced thrombocytopenia Other congenital or acquired thrombophilia Stroke (< 1 month) Elective arthroplasty Hip, pelvis, or leg fracture Acute spinal cord injury (< 1 month) Prophylaxis Regimen: Total Risk Factor Score Risk Level Prophylaxis Regimen 0-1 Low Early ambulation 2 Moderate Order ONE of the following: *Sequential Compression Device (SCD) *Heparin 5000 units SQ BID 3-4 Higher Order ONE of the following medications: *Heparin 5000 units SQ TID *Enoxaparin/Lovenox 40 mg SQ daily (WT < 150 kg, CrCl > 30 mL/min) *Enoxaparin/Lovenox 30 mg SQ daily (WT < 150 kg, CrCl > 10-29 mL/min) *Enoxaparin/Lovenox 30 mg SQ BID (WT < 150 kg, CrCl > 30 mL/min) AND/OR *Sequential Compression Device (SCD) 5 or more Highest Order ONE of the following medications: *Heparin 5000 units SQ TID (Preferred with Epidurals) *Enoxaparin/Lovenox 40 mg SQ daily (WT < 150 kg, CrCl > 30 mL/min) *Enoxaparin/Lovenox 30 mg SQ daily (WT < 150 kg, CrCl > 10-29 mL/min) *Enoxaparin/Lovenox 30 mg SQ BID (WT < 150 kg, CrCl > 30 mL/min) AND *Sequential Compression Device (SCD) Assessment and Plan - Plan Uncontrolled malignant hypertension -Place in the ICU -Start on Cardene drip -Resume home medications -Pain control -PRN blood pressure meds with hydralazine and Catapres -Add Norvasc 5 mg p.o. daily Back pain status post fall -Pain control with p.o. pain medications and IV pain medications -Scheduled Robaxin -PT and OT to eval and treat Chronic anticoagulation for mechanical heart valve -Continue on Lovenox 100 mg subcu twice daily -Continue on Coumadin -Daily PT/INR -Goal INR of 2.5-4.0 Atrial fibrillation continue on Coumadin and Lovenox for goal of 2.5-4.0 Colon cancer with metastasis to the spine -Pain control -Consult Dr. TERRAZAS -PT and OT to eval and treat -Continue on Xeloda Hypertension resume home medications and try and get under control with the Cardene drip Hyperlipidemia resume statin Urinary retention continue home medication Neuropathy continue on Lyrica Glaucoma continue on timolol/Timoptic DVT prophylaxis continue on Coumadin and Lovenox GI prophylaxis with Pepcid Continue on good bowel regimen to prevent constipation Code Status: Full code Discussed Condition With: RN and patient and emergency room physician and emergency room PA Discharge Planning: Pending blood pressure control and able to come out of the ICU and pain to be controlled for his back
[2018-02-10] MEDS ORDERED: Warfarin Consult Pharmacy OTHER PRN (17:43)
[2018-02-10 19:40] LABS: Creatine Kinase 50 U/L (39-308)
[2018-02-10] MEDS: Morphine Sulfate Inj 2 MG/ML Vial IV.PUSH PRN (19:52)
[2018-02-10] MEDS: Enoxaparin Inj 100 MG/ML Syringe SQ SCH ×2 (19:52→22:34)
[2018-02-10] MEDS ORDERED: CAPECITABINE 1500 MG PO SCH (21:00)
[2018-02-10] MEDS ORDERED: Famotidine PF Inj 20 MG/2 ML Vial IV.PUSH SCH (21:00)
--- NOTE | 2018-02-10 22:29 | MR ---
EXAM DATE: 02/10/2018 10:11 PM EST AGE/SEX: 82 years / Male INDICATIONS: Gait disorder. CLINICAL DATA: This is the patient's initial encounter. Patient reports that signs and symptoms have been present for 1 day and indicates a pain score of 9/10. MEDICAL/SURGICAL HISTORY: Carcinoma, colon. Hypertension. CABG. Colon resection. Cholecystec freddy. COMPARISON: [facility], CT THORACIC SPINE W/O CONTRAST, 02/10/2018. [facility], MR LUMBAR SPINE W AND W/O CON TRAST, 11/05/2017. . TECHNIQUE: Multiplanar, multisequence MRI of the thoracic spine was performed without and with 10 ml Gadavist (gadobutrol) contrast as a single exam dose. FINDINGS: No subluxations. Thoracic kyphosis is mildly exaggerated. There is discogenic edema at T12/L1. The comparison CT that shows vacuum phenomena which would mitiga te against acute discitis. There is mild superior endplate acute or subacute compression fracture of L1 which I believe is benign. There is mild inferior endplate acute or subacute compression fracture of T12. A 2.7 cm area of increased T2 signal and decreased T1 signal is seen within the vertebral bod y suggesting a metastatic lesion. No significant retropulsion. Secondary to degenerative changes and small, broad posterior disc osteophyte complexes at T11/T12 and T12/L1, there is mild spinal stenosis at this level. Similar findings are seen at T5/T6. No cord com pression or cord signal abnormality. CONCLUSION: 1. Since October, a 2.7 cm metastatic lesion has developed of the T12 vertebral body and there is a m ild pathologic compression fracture that appears acute or subacute. A benign-appearing mild compressi on fracture has developed of T12. 2. Considerable edema of the T12/L1 disc but without significant enhancement and there is vacuum phe nomena on the comparison CT may be against infectious discitis. 3. No high-grade foraminal or spinal stenosis of the thoracic spine. Electronically signed by: Sancho John MD 02/10/2018 10:28 PM EST
[2018-02-10] MEDS: Pregabalin 75 MG Capsule PO SCH (22:31)
[2018-02-10] MEDS: Metoprolol Tartrate 50 MG Tablet PO SCH (22:31)
[2018-02-10] MEDS: Lisinopril 20 MG Tablet PO SCH (22:32)
[2018-02-10] MEDS: Famotidine 20 MG Tablet PO SCH (22:32)
[2018-02-10] MEDS: Senna/Docusate Sodium 8.6/50 MG Tablet PO SCH (22:32)
[2018-02-10] MEDS: Timolol 0.25% Drops 5 ML Bottle EACH EYE SCH (22:33)
--- NOTE | 2018-02-10 23:02 | MR ---
EXAM DATE: 02/10/2018 10:11 PM EST AGE/SEX: 82 years / Male INDICATIONS: Inability to ambulate. History of tumor on L4. CLINICAL DATA: This is the patient's initial encounter. Patient reports that signs and symptoms have been present for 1 day and indicates a pain score of 6/10. MEDICAL/SURGICAL HISTORY: Carcinoma, colon. Hypertension. Colon resection. Cholecystectomy. CABG. COMPARISON: [facility], MR LUMBAR SPINE W AND W/O CONTRAST, 11/05/2017. [facility], MR THORACIC SPINE W & W/O CON, 02/10/2018. . TECHNIQUE: Multiplanar, multisequence MRI examination of the lumbar spine was performed without and with 10 ml Gadavist (gadobutrol) contrast as a single exam dose. FINDINGS: Heterogeneously enhancing tumor infiltrates the L4 vertebral body and extending into the bilateral pe dicles. There is mild, reactive appearing enhancement in the adjacent soft tissues, including the epi dural space, but I don't see a discrete extraosseous mass. L4 vertebral body continues to have normal height. A new bone lesion has developed at T12 and please refer to the thoracic spine MRI report. L1/L2: The disc as mild loss of height. There is diffuse bulging of the disc annulus and a small left paracentral protrusion. Mild to moderate bilateral facet osteoarthritis. Is mild spinal stenosis. L2/L3: The disc is desiccated and moderate loss of height. Moderate, broad posterior protrusion and m oderate to severe bilateral facet osteoarthritis. There is moderate spinal stenosis and mild bilatera l foraminal stenosis. L3/L4: The disc is desiccated and has mild to moderate loss of height. Moderate, broad posterior disc protrusion and moderate bilateral facet osteoarthritis. There is moderate severity spinal stenosis a nd mild bilateral foraminal stenosis. L4/L5: The disc is desiccated and has moderate loss of height. There is a small, broad posterior disc protrusion and moderate to severe bilateral facet osteoarthritis with thickening of the ligamentum f lavum. There is moderate right and mild left foraminal stenosis. L5/S1: The disc is desiccated and has moderate loss of height with vacuum phenomena. A moderate size, inferiorly extruded right paracentral disc fragment is present. There is moderate bilateral facet os teoarthritis. There is mild spinal and right lateral recess stenosis. There is mild to moderate right and moderate left foraminal stenosis. CONCLUSION: 1. Large infiltrative lesion of L4 again noted without pathologic fracture or perceptible extraosseo us mass. No tumor-associated foraminal or spinal stenosis seen. 2. A new metastatic lesion as developed of the T12 vertebral body and please refer to the [facility] MRI report. 3. Multilevel degenerative changes as described, not significantly changed from longus. Electronically signed by: Sancho John MD 02/10/2018 11:01 PM EST
[2018-02-10] MEDS ORDERED: Gadobutrol PF 10 MMOL/10 ML Vial (for RAD) IV.SIG ONE (23:06)
[2018-02-10 23:29] LABS: Alanine Aminotransferase 18 U/L (12-78); Anion Gap 6 meq/L (5-15); Aspartate Aminotransferase 21 U/L (15-37); Blood Urea Nitrogen 20 mg/dL (7-18); Calcium 8.8 mg/dL (8.5-10.1); Carbon Dioxide 28.6 meq/L (21.0-32.0); Chloride 103 meq/L (98-107); Glomerular Filtration Rate Greater Than 89 mL/min (>89); Glucose,Random 124 mg/dL (74-106); Magnesium 1.8 mg/dL (1.5-2.5); Potassium 4.1 meq/L (3.5-5.1); Sodium 138 meq/L (136-145)
[2018-02-10] MEDS: Methocarbamol 500 MG Tablet PO SCH (23:29)
[2018-02-10 23:33] LABS: Alkaline Phosphatase 106 U/L (45-117); Phosphorus 2.8 mg/dL (2.5-4.9); Total Protein 6.3 g/dL (6.4-8.2); Troponin I 0.02 ng/mL (0.02-0.05)
[2018-02-10 23:34] LABS: Creatine Kinase 42 U/L (39-308)
--- NOTE | 2018-02-11 01:58 | MB ---
cc: Dany Terrazas MD DATE: 02/10/2018 REASON FOR CONSULTATION: Consult requested by hospitalist for evaluation of weakness of both lower legs with back pain. HISTORY OF PRESENT ILLNESS: Avi is a pleasant 82-year-old male. He is well known to me. He was diagnosed with colon cancer in 2006, for which he underwent proctosigmoidectomy. The pathology report showed stage III cancer. He underwent adjuvant FOLFOX chemotherapy for 6 months completed in April 2007. In July 2013, he had a first relapse of colon cancer with retroperitoneal lymphadenopathy. He was treated with 6 months of Xeloda chemotherapy with an excellent response. Subsequently in June 2014, he had second recurrent disease in the same area of the retroperitoneum and this time, he had radiation therapy. In August 2015, he had a third recurrence in the same area. He was treated with Xeloda chemotherapy again until January 2017 when it was stopped due to progressive disease. On 05/13/2017, he had a PET scan, which showed increased uptake at L4 vertebrae consistent with metastasis. He had a biopsy of L4 lesion and the pathology report showed moderately differentiated adenocarcinoma c/w colonic primary. He had 3 treatments of stereotactic radiosurgery completed in June 2017. The patient has been on palliative Avastin and FOLFIRI chemotherapy since June 2017. His last treatment was 01/15/2018. The patient has a significant response. He requested to hold off on further chemotherapy until after the and holidays. The patient had called our office last week complaining of change in mental status. He was directed to the emergency room. The patient had a CAT scan of the brain, which was reported to be negative. Subsequently he had an MRI of the brain, which showed no significant findings. The patient has been complaining of weakness of both lower legs. It is difficult for him to walk. He had a fall at home. He hit his back. Since then, he has been complaining of severe back pain. It is difficult for him to walk. He was brought in to the emergency room. The patient underwent a CAT scan of the thoracic and lumbar spine, which shows stable L4 vertebral lesion. There are no other significant findings noted. The patient had CT scan and MRI of Brain on his last ER visit. I have reviewed those and does not show any brain metastasis. The rest of the review of systems is negative. PAST MEDICAL HISTORY: Prostate cancer on intermittent Eligard hormonal therapy. Atrial fibrillation, hypercholesterolemia, hypertension, glaucoma. PAST SURGICAL HISTORY: AVR Infusaport placement, coronary stent placement, heart bypass. Vasectomy, colonoscopy, proctosigmoidectomy cholecystectomy, coronary artery bypass surgery, tonsillectomy. ALLERGIES: NONE. MEDICATIONS: Please see EMR. FAMILY HISTORY: Parents from old age. He had 1 brother who . He had 1 sister who also . He has 1 son who is alive and well. He also has 1 daughter who is alive and well. SOCIAL HISTORY: The patient is . Does not smoke cigarettes, does not drink alcohol. PHYSICAL EXAMINATION: GENERAL: A well-developed, chronically ill-appearing white male in no apparent distress. VITAL SIGNS: Temperature 98, blood pressure 145/67, respiratory rate is 22. Pain scale is zero. HEAD, EYES, EARS, NOSE, AND THROAT: Pupils equal, round, reactive to light and accommodation, extraocular movements intact. Anicteric. No oral lesions noted. No thrush noted. NECK: Supple. No JVD. No masses noted. LUNGS: Clear. No wheezing, rhonchi, or rales. HEART: Regular rate and rhythm. No murmur heard. ABDOMEN: Soft and nontender. No hepatosplenomegaly. No abnormal bowel sounds. No guarding or rigidity noted. EXTREMITIES: No pedal edema. No cyanosis, no clubbing. NEUROLOGIC: Awake, alert, oriented x 3. Sensory and motor seem to be intact. SKIN: No bruises or petechiae noted. LYMPH NODES: No cervical, supraclavicular, or axillary lymphadenopathy noted. BACK: There is no spinal tenderness noted. ASSESSMENT: 1.Colon cancer with multiple relapses. 2. Weakness of both lower legs with severe back pain. PLAN: He has been on chemotherapy with a good response. The patient has elected to hold further chemotherapy about 2 weeks ago. He came to the emergency room couple of days ago and had CAT scan of the brain, followed by MRI of the brain, which showed no significant findings. He now has CAT scan of the thoracic and lumbar spine, which shows stable lesion at L4 and no evidence of any new bone metastasis. The patient has significant weakness in both lower legs. I will get MRI of the thoracic and lumbar spine. I have requested consult with neurologist for further evaluation. Case has been discussed with the patient, and his son. Their questions were answered to their satisfaction. Thank you for asking my opinion. MD RALEIGH Jennings/evelina , 11:14 PM , 11:30 PM TAMARA
[2018-02-11] MEDS ORDERED: Chlorhexidine Gluconate 2% 1 Pack (2 Cloths) TOPICAL PRN (04:00)
[2018-02-11] MEDS: amLODIPine 5 MG Tablet PO SCH ×2 (04:09→09:27)
[2018-02-11 04:24] LABS: Baso % (Auto) 0.5 % (0.0-2.0); Eos # (Auto) 0.1 th/mm3 (0.0-0.4); Eos % (Auto) 0.6 % (0.0-4.0); Hematocrit 36.8 % (39.0-51.0); Hemoglobin 12.7 gm/dL (13.0-17.0); Lymph # (Auto) 0.5 th/mm3 (1.0-4.8); Lymph % (Auto) 6.3 % (9.0-44.0); Mean Corpuscular HGB Conc 34.4 % (32.0-36.0); Mean Corpuscular Hemoglobin 34.2 pg (27.0-34.0); Mean Corpuscular Volume 99.2 fL (80.0-100.0); Mean Platelet Volume 8.3 fL (7.0-11.0); Mono # (Auto) 0.7 th/mm3 (0.0-0.9); Mono % (Auto) 8.4 % (0.0-8.0); Neut # (Auto) 7.2 th/mm3 (1.8-7.7); Neut % (Auto) 84.2 % (16.0-70.0); Platelet Count 178 th/mm3 (150-450); Red Blood Count 3.71 mil/mm3 (4.50-5.90); Red Cell Distribution Width 14.3 % (11.6-17.2); White Blood Count 8.6 th/mm3 (4.0-11.0)
[2018-02-11 04:31] LABS: INR 1.4 Ratio; Prothrombin Time 14.6 sec (9.8-11.6)
[2018-02-11 04:51] LABS: Anion Gap 7 meq/L (5-15); Aspartate Aminotransferase 18 U/L (15-37); Blood Urea Nitrogen 20 mg/dL (7-18); Calcium 8.8 mg/dL (8.5-10.1); Carbon Dioxide 25.7 meq/L (21.0-32.0); Chloride 104 meq/L (98-107); Glomerular Filtration Rate Greater Than 89 mL/min (>89); Glucose,Random 122 mg/dL (74-106); Magnesium 1.8 mg/dL (1.5-2.5); Potassium 3.8 meq/L (3.5-5.1); Sodium 137 meq/L (136-145)
[2018-02-11 04:52] LABS: Alanine Aminotransferase 21 U/L (12-78)
[2018-02-11 05:01] LABS: Alkaline Phosphatase 100 U/L (45-117); Free T4 (Free Thyroxine) 1.68 ng/dL (0.76-1.46); Phosphorus 2.4 mg/dL (2.5-4.9); Thyroid Stimulating Hormone 0.364 uIU/mL (0.358-3.740); Total Protein 6.2 g/dL (6.4-8.2)
[2018-02-11] MEDS: Chlorhexidine Gluconate 2% 1 Pack (2 Cloths) TOPICAL SCH (05:56)
[2018-02-11] MEDS: niCARdipine Inj 25 MG in Sodium Chlor 0.9% Inj 240 ML IV.CONT PRN ×2 (05:59→09:26)
--- NOTE | 2018-02-11 08:08 | P.CONNEU ---
History of Present Illness Service: Neurology Primary Care Provider: Reyna Pastor MD Chief Complaint: BACK PAIN/INJURY History of Present Illness: 10-year-old male admitted for weakness. History of colon cancer with recurrent relapses. Has had chemotherapy and radiation treatment. Followed by oncology service. Also had some mental status changes is not the best historian. He does state that he had numbness in his legs for some time denies any headache. Review of Systems All other systems reviewed negative except as stated in HPI [facility] - History History Provided By: Patient - Medical History Medical History: Medical History (Last Reviewed 02/11/18 @ 07:45 by Luis Fernando Plata) History of high blood pressure History of high cholesterol Hx of balanitis Hx of malignant neoplasm of colon - Surgical History Surgical History: Surgical History (Last Reviewed 02/11/18 @ 07:45 by Luis Fernando Plata) Hx of artificial heart valve replacement Hx of cholecystectomy Hx of colonoscopy Hx of heart bypass surgery - Family History Family History: Family History (Last Updated 02/10/18 @ 16:57 by Claude Taylor DO) Other Family history of hypertension - Tobacco History Second Hand Smoke Exposure: No Tobacco Use In Past 30 Days: No Smoking Status: Never smoker - Alcohol History How Often Do You Have a Drink Containing Alcohol: 4 or more times a week - Substance Use History Substance History: No History of Abuse - Travel History History of Recent Travel: No Recent Travel in the [place] Within the Last 8 Weeks: No Recent Travel Out of the Country Within the Last 8 Weeks: No - Immunization History Tetanus Immunization: <5 Years Medications and Allergies Active Medications: Active Medications Acetaminophen (Tylenol) 650 mg PO Q6H PRN PRN Reason: FEVER >101F Acetaminophen (Tylenol) 650 mg PO Q6H PRN PRN Reason: PAIN SCALE 1 TO 2 Al Hydroxide/Mg Hydroxide (Milk Of Anisha Liizabella) 30 ml PO Q12H PRN PRN Reason: Mild Constipation Amlodipine Besylate (Norvasc) 5 mg PO DAILY [facility] Last Admin: 02/11/18 04:09 Dose: Not Given Atorvastatin Calcium (Lipitor) 80 mg PO HS [facility] Last Admin: 02/10/18 22:30 Dose: 80 mg Bisacodyl (Dulcolax Supp) 10 mg RECTAL DAILY PRN PRN Reason: SEVERE CONSITIPATION Chlorhexidine Gluconate (Chlorhexidine 2% Cloth) 3 pack TOPICAL DAILY@0400 [facility] Stop: 02/16/18 03:59 Last Admin: 02/11/18 05:56 Dose: 3 pack Chlorhexidine Gluconate (Chlorhexidine 2% Cloth) 3 pack TOPICAL DAILY@0400 PRN PRN Reason: Extra cloth needed Stop: 02/16/18 03:59 Clonidine HCl (Catapres) 0.1 mg PO Q6H PRN PRN Reason: HYPERTENSION Enoxaparin Sodium (Lovenox Inj) 100 mg SQ Q12HR [facility] Last Admin: 02/10/18 22:34 Dose: Not Given Famotidine (Pepcid) 20 mg PO BID [facility] Last Admin: 02/10/18 22:32 Dose: 20 mg Hydralazine HCl (Apresoline Inj) 20 mg IV.PUSH Q4H PRN PRN Reason: SBP>160, DBP>90 Nicardipine HCl 25 mg/ Sodium (Chloride) 250 mls @ 50 mls/hr IV.CONT TITRATE PRN; Protocol PRN Reason: Per Protocol Last Admin: 02/11/18 05:59 Dose: 5 mg/hr, 50 mls/hr Lactulose (Lactulose Liq) 30 ml PO DAILY PRN PRN Reason: SEVERE CONSITIPATION Lisinopril (Prinivil) 20 mg PO HS [facility] Last Admin: 02/10/18 22:32 Dose: 20 mg Methocarbamol (Robaxin) 1,000 mg PO Q8HR [facility] Last Admin: 02/10/18 23:29 Dose: 1,000 mg Metoprolol Tartrate (Lopressor) 50 mg PO BID [facility] Last Admin: 02/10/18 22:31 Dose: 50 mg Morphine Sulfate (Morphine Inj) 2 mg IV.PUSH Q3H PRN PRN Reason: PAIN 3-5; IF UABLE TO TAKE PO Last Admin: 02/10/18 19:52 Dose: 2 mg Morphine Sulfate (Morphine Inj) 4 mg IV.PUSH Q3H PRN PRN Reason: BREAKTHROUGH PAIN Morphine Sulfate (Morphine Inj) 4 mg IV.PUSH Q1H PRN PRN Reason: Pain Scale 7-10 (Intractable) Morphine Sulfate (Morphine Inj) 4 mg IV.PUSH Q3H PRN PRN Reason: PAIN 6-10;IF UNABLE TO TAKE PO Naloxone HCl (Narcan Inj) 0.4 mg IV.PUSH UNSCH PRN PRN Reason: SEE LABEL COMMENTS Ondansetron HCl (Zofran Inj) 4 mg IV.PUSH Q6H PRN PRN Reason: NAUSEA OR VOMITING Ondansetron HCl (Zofran Inj) 4 mg IV.PUSH Q6H PRN PRN Reason: NAUSEA OR VOMITING Oxycodone/Acetaminophen (Percocet 10/325 Mg) 1 tab PO Q6H PRN PRN Reason: PAIN SCALE 6 TO 10 Oxycodone/Acetaminophen (Percocet 5/325 Mg) 1 tab PO Q6H PRN PRN Reason: PAIN SCALE 3 TO 5 Last Admin: 02/11/18 03:55 Dose: 1 tab Pt Own (Capecitabine [Xeloda] 1,500 Mg) Tablet 1 each PO BID [facility] Pharmacy Profile Note (Coumadin Consult Pharmacy) 1 each OTHER UNSCH PRN PRN Reason: PHARMACY DOCUMENTATION Pregabalin (Lyrica) 75 mg PO HS [facility] Last Admin: 02/10/18 22:31 Dose: 75 mg Senna/Docusate Sodium (Marlena-Colace) 1 tab PO BID [facility] Last Admin: 02/10/18 22:32 Dose: 1 tab Sennosides (Senokot) 17.2 mg PO Q12H PRN PRN Reason: Moderate Constipation Sodium Chloride (Ns Flush) 2 ml IV.FLUSH BID [facility] Last Admin: 02/10/18 22:35 Dose: 2 ml Sodium Chloride (Ns Flush) 2 ml IV.FLUSH PRN PRN PRN Reason: FLUSH AFTER USING IV ACCESS Timolol Maleate (Timolol 0.25% Drops) 1 drops EACH EYE Q12HR [facility] Last Admin: 02/10/18 22:33 Dose: 1 drops Tolterodine Tartrate (Detrol La) 4 mg PO DAILY [facility] Allergies Allergy/AdvReac Type Severity Reaction Status Date / Time No Known Allergies Allergy Verified 02/01/18 19:28 Home Medications Medication Instructions Recorded Confirmed Type atorvastatin 80 mg PO QPM 02/01/18 02/10/18 History leuprolide (3 month) [Eligard (3 22.5 mg SUBCUT [id number] 02/01/18 02/10/18 History month)] lisinopril 20 mg PO QPM 02/01/18 02/10/18 History metoprolol tartrate 50 mg PO BID 02/01/18 02/10/18 History oxybutynin chloride 15 mg PO QPM 02/01/18 02/10/18 History pregabalin [Lyrica] 75 mg PO HS 02/01/18 02/10/18 History capecitabine [Xeloda] 1,500 mg PO Q12H 02/10/18 02/10/18 History timolol maleate [Timoptic] 1 drp EACH EYE Q12HR 02/10/18 02/10/18 History warfarin [Coumadin] 3 mg PO DAILY 02/10/18 02/10/18 History Exam Vital signs: Vital Signs 02/10/18 11:08 02/10/18 11:30 02/10/18 11:54 Temperature 98 F Pulse Rate 91 H 95 H 88 Respiratory Rate 21 19 17 Blood Pressure 259/120 H 242/114 H 252/112 H Pulse Oximetry 95 95 98 02/10/18 11:55 02/10/18 13:00 02/10/18 14:22 Temperature Pulse Rate 98 H 87 88 Respiratory Rate 18 18 16 Blood Pressure 252/112 H 237/107 H 246/115 H Pulse Oximetry 96 98 02/10/18 14:59 02/10/18 15:10 02/10/18 15:30 Temperature Pulse Rate 87 91 H 80 Respiratory Rate 18 18 18 Blood Pressure 164/92 H 165/96 H 164/74 H Pulse Oximetry 96 95 99 02/10/18 16:23 02/10/18 16:44 02/10/18 17:00 Temperature Pulse Rate 75 Respiratory Rate 18 Blood Pressure 140/70 Pulse Oximetry 96 96 97 02/10/18 18:00 02/10/18 19:00 02/10/18 20:05 Temperature Pulse Rate 80 73 76 Respiratory Rate 16 18 18 Blood Pressure 162/77 H 127/67 153/68 H Pulse Oximetry 68 L 95 02/10/18 22:03 02/10/18 22:28 02/10/18 22:30 Temperature Pulse Rate 79 82 Respiratory Rate 22 18 Blood Pressure 144/65 H 145/67 H Pulse Oximetry 96 95 95 02/10/18 23:00 02/11/18 00:00 02/11/18 01:00 Temperature Pulse Rate 91 H 88 84 Respiratory Rate 18 15 22 Blood Pressure 150/68 H 175/74 H 154/72 H Pulse Oximetry 93 L 92 L 95 02/11/18 01:17 12/04/18 02:00 02/11/18 03:00 Temperature Pulse Rate 82 91 H 80 Respiratory Rate 18 18 Blood Pressure 177/68 H 156/117 H Pulse Oximetry 02/11/18 04:00 02/11/18 04:44 02/11/18 05:00 Temperature 98.3 F Pulse Rate 83 85 Respiratory Rate 20 18 Blood Pressure 148/67 H 145/66 H Pulse Oximetry 96 02/11/18 06:00 Temperature Pulse Rate 81 Respiratory Rate 20 Blood Pressure 154/70 H Pulse Oximetry Intake & Output 02/10/18 02/11/18 02/11/18 18:59 06:59 18:59 Intake Total 800 / 800 Balance 800 / 800 Weight 99.79 kg 100 kg Intake: IV 500 / 500 Cardene Inj 25 MG In NS Inj 240 500 / 500 ML @ 5 MG/HR 50 mls/hr IV.CONT TITRATE PRN Rx#:[id number] Oral 300 / 300 Other: # Voids 1 Weight On Admission 100 kg Narrative: GENERAL: in NAD, SKIN: Warm and dry. HEAD: Atraumatic. Normocephalic. EYES: Pupils equal and round. ENT: No nasal bleeding or discharge. NECK: Trachea midline. No JVD. CARDIOVASCULAR: Regular rate and rhythm. RESPIRATORY: No accessory muscle use. GASTROINTESTINAL: Abdomen soft, non-tender, nondistended. MUSCULOSKELETAL: Extremities without clubbing, cyanosis, or edema. No obvious deformities. NEUROLOGICAL: Awake and alert. Oriented 1-2, no aphasia, fluent articulate, No facial asymmetry, OU 3-2mm, eomi, VFF, No drift, upper extremity and restraints, able to raise both lower extremity gravity for at least 4-5 seconds , hammertoes in his feet dorsiflexion plantarflexion strength 5- out of 5 with slight reduced fine toe movement, mild hip flexor weakness but again able to raise to gravity, reflexes 1-2+ trace at the ankle plantarflex her no clonus elicited, reduce pinprick up to the level of the knees also reduced in the hands up to the wrist stocking glove distribution, gait not assessed secondary fall risk PSYCHIATRIC: Calm - Constitutional no acute distress - Routine HEENT Exam Head: Present: normocephalic Eye: Present: EOMI Results - Labs CBC & Chem 7: 02/11/18 03:39 02/11/18 03:39 Labs: Laboratory Results - last 24 hr 02/10/18 02/10/18 02/10/18 11:15 11:15 11:15 WBC 7.3 RBC 3.90 L Hgb 13.4 Hct 38.9 L MCV 99.8 MCH 34.4 H MCHC 34.5 RDW 14.6 Plt Count 172 D MPV 8.0 Neut % (Auto) 82.8 H Lymph % (Auto) 7.3 L [place] % (Auto) 9.2 H Eos % (Auto) 0.4 Baso % (Auto) 0.3 Neut # (Auto) 6.0 Lymph # (Auto) 0.5 L [place] # (Auto) 0.7 Eos # (Auto) 0.0 Baso # (Auto) 0.0 WBC Differential . Differential Comment Auto diff final PT 13.7 H INR 1.4 Sodium 136 Potassium 4.4 Chloride 103 Carbon Dioxide 26.2 Anion Gap 7 BUN 17 Creatinine 0.72 Estimated GFR Greater than 89 Random Glucose 126 H Calcium 9.5 Phosphorus Magnesium Total Bilirubin 1.6 H AST 24 ALT 22 Alkaline Phosphatase 114 Total Creatine Kinase Troponin I Total Protein 6.8 Albumin 3.4 Lipase 31 L Carcinoembryonic Ag TSH Free T4 Nasal Screen MRSA (PCR) 02/10/18 02/10/18 02/10/18 18:40 22:40 23:20 WBC RBC Hgb Hct MCV MCH MCHC RDW Plt Count MPV Neut % (Auto) Lymph % (Auto) [place] % (Auto) Eos % (Auto) Baso % (Auto) Neut # (Auto) Lymph # (Auto) [place] # (Auto) Eos # (Auto) Baso # (Auto) WBC Differential Differential Comment PT INR Sodium 138 Potassium 4.1 Chloride 103 Carbon Dioxide 28.6 Anion Gap 6 BUN 20 H Creatinine 0.70 Estimated GFR Greater than 89 Random Glucose 124 H Calcium 8.8 Phosphorus 2.8 Magnesium 1.8 Total Bilirubin 1.3 H AST 21 ALT 18 Alkaline Phosphatase 106 Total Creatine Kinase 50 42 Troponin I Less than 0.02 L 0.02 Total Protein 6.3 L Albumin 3.0 L Lipase Carcinoembryonic Ag TSH Free T4 Nasal Screen MRSA (PCR) Not detected 02/11/18 02/11/18 02/11/18 03:39 03:39 03:39 WBC 8.6 RBC 3.71 L Hgb 12.7 L Hct 36.8 L MCV 99.2 MCH 34.2 H MCHC 34.4 RDW 14.3 Plt Count 178 MPV 8.3 Neut % (Auto) 84.2 H Lymph % (Auto) 6.3 L [place] % (Auto) 8.4 H Eos % (Auto) 0.6 Baso % (Auto) 0.5 Neut # (Auto) 7.2 Lymph # (Auto) 0.5 L [place] # (Auto) 0.7 Eos # (Auto) 0.1 Baso # (Auto) 0.0 WBC Differential . Differential Comment Auto diff final PT 14.6 H INR 1.4 Sodium 137 Potassium 3.8 Chloride 104 Carbon Dioxide 25.7 Anion Gap 7 BUN 20 H Creatinine 0.66 Estimated GFR Greater than 89 Random Glucose 122 H Calcium 8.8 Phosphorus 2.4 L Magnesium 1.8 Total Bilirubin 1.7 H AST 18 ALT 21 Alkaline Phosphatase 100 Total Creatine Kinase Troponin I Total Protein 6.2 L Albumin 3.0 L Lipase Carcinoembryonic Ag TSH 0.364 Free T4 1.68 H Nasal Screen MRSA (PCR) 02/11/18 03:39 WBC RBC Hgb Hct MCV MCH MCHC RDW Plt Count MPV Neut % (Auto) Lymph % (Auto) [place] % (Auto) Eos % (Auto) Baso % (Auto) Neut # (Auto) Lymph # (Auto) [place] # (Auto) Eos # (Auto) Baso # (Auto) WBC Differential Differential Comment PT INR Sodium Potassium Chloride Carbon Dioxide Anion Gap BUN Creatinine Estimated GFR Random Glucose Calcium Phosphorus Magnesium Total Bilirubin AST ALT Alkaline Phosphatase Total Creatine Kinase Troponin I Total Protein Albumin Lipase Carcinoembryonic Ag 20.0 H TSH Free T4 Nasal Screen MRSA (PCR) - Imaging Impressions Lumbar Spine MRI 02/10/18 00:00 CONCLUSION: 1. Large infiltrative lesion of L4 again noted without pathologic fracture or perceptible extraosseous mass. No tumor-associated foraminal or spinal stenosis seen. 2. A new metastatic lesion as developed of the T12 vertebral body and please refer to the thoracic spine MRI report. 3. Multilevel degenerative changes as described, not significantly changed from longus. Thoracic Spine MRI 02/10/18 00:00 CONCLUSION: 1. Since October, a 2.7 cm metastatic lesion has developed of the T12 vertebral body and there is a mild pathologic compression fracture that appears acute or subacute. A benign-appearing mild compression fracture has developed of T12. 2. Considerable edema of the T12/L1 disc but without significant enhancement and there is vacuum phenomena on the comparison CT may be against infectious discitis. 3. No high-grade foraminal or spinal stenosis of the thoracic spine. Thoracic Spine CT 02/10/18 12:02 CONCLUSION: 1. Degenerative changes throughout the thoracic spine but no acute thoracic spine abnormality is identified. 2. Small left pleural effusion. Lumbar Spine CT 02/10/18 12:03 CONCLUSION: 1. No acute lumbar spine abnormality is identified. There is a stable abnormal sclerosis of the L4 vertebral body likely representing a metastatic bone lesion. No compression fracture is present. 2. Severe multilevel degenerative disc disease, as above, with spinal canal narrowing at L2-L3, L3-L4, and L4-L5. There is neural foraminal narrowing are also present, as above. 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 Suspect related to focal stenosis severe stenosis at L2 to 3 region seen on MRI L-spine sagittal and axial sections He also appears to have an underlying peripheral neuropathy likely secondary to chemotherapy Left dominant meningeal disease at the possibility however he is afebrile no leukocytosis and his pain is focally located in his lower back and not generalized The history of radiation treatment to the: He is at risk for developing radiation-induced mild plexopathy as well Recommendation We will obtain an MRI brain and C-spine to exclude any other lesion EEG Neurosurgical evaluation of the lumbar spinal stenosis Therapy Pain control Follow exam Can be moved to regular fifth floor with telemetry floor [facility] from neurologic standpoint
[2018-02-11] MEDS: Tolterodine Tartrate LA 4 MG Capsule PO SCH (09:27)
[2018-02-11] MEDS: Famotidine 20 MG Tablet PO SCH ×2 (09:27→22:10)
[2018-02-11] MEDS: Metoprolol Tartrate 50 MG Tablet PO SCH ×2 (09:27→22:10)
--- NOTE | 2018-02-11 09:27 | ECG ---
Date Performed: 02/10/2018 Time Performed: 22:30:00 PTAGE: 82 years EKG: Baseline artifact present PROBABLE ATRIAL FIBRILLATION RIGHT BUNDLE BRANCH BLOCK ABNORMAL E CG Compared to prior electrocardiogram, Probable atrial fibrillation has replaced Sinus rhythm PREVIOUS TRACING : 02/01/2018 20.03 DOCTOR: Olu Sethi Interpretating Date/Time 02/11/2018 09:27:17
[2018-02-11] MEDS: Timolol 0.25% Drops 5 ML Bottle EACH EYE SCH ×2 (09:28→22:10)
[2018-02-11] MEDS: Enoxaparin Inj 100 MG/ML Syringe SQ SCH ×2 (09:28→22:10)
[2018-02-11] MEDS: Senna/Docusate Sodium 8.6/50 MG Tablet PO SCH ×2 (09:31→22:10)
[2018-02-11] MEDS: Methocarbamol 500 MG Tablet PO SCH ×3 (11:01→22:10)
--- NOTE | 2018-02-11 11:30 | P.PNIM ---
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 Patient states this is been going on for at least the past 10 days, when he suffered a mechanical fall. Patient denied hitting his head or any loss of consciousness. States that he has been largely bedbound since that time due to pain. Patient states that pain is sharp with at least an 8 out of 10 worsened by motion And movements. Nothing has really alleviated the back pain. The patient denies any radiation of the pain. He denies any numbness, he denies any tingling, he denies any weakness of the lower extremities, he denies any saddle anesthesia or incontinence. He has a new patient appointment with Dr. Whitehead of neurology later this month is followed by Dr. Terrazas of oncology. Patient's pain became under somewhat control but then it was noted that his blood pressure was elevated over 250 systolic and patient was started on a Cardene drip after his oral medications were started and did not come close to getting his blood pressure under control. Therefore patient is admitted to the ICU on a Cardene drip will have other medications and try to wean him off. His past medical history is significant for hyperlipidemia prostate cancer hypertension overflow incontinence, neuropathy, colon cancer, glaucoma, and chronic anticoagulation for atrial fibrillation as well as history of mechanical heart valve also has a history of high cholesterol history of balanitis and history of malignant neoplasm of the colon. Has had a cholecystectomy as well as a colonoscopy and heart bypass surgery Patient denies any tobacco or alcohol. Family history is significant for hypertension also 12-4 PATIENT HAS BEEN SEEN BY NEUROLOGY WHO WANT MRI OF BRAIN AND CERVICAL REGION NEUROSURGERY HAS BEEN CONSULTED DUE TO L2 AREA SEVERE STENOSIS PT AND OT WEAN OFF OF CARDENE IF ABLE DW RN AND PT AND FAMILY AM LABS PT AND OT GOAL INR 2.5 TO 4.0 NOT AT GOAL ONLY 1.4- WILL NOT GET AGGRESSIVE TO GET TO GOAL UNTIL AFTER EVALUATED BY NEUROSURGERY IN CASE A PROCEDURE NEEDS TO BE DONE CONTINUE ON FULL DOSE LOVENOX 100MG SUBQ BID HAD MRI OF LUMBAR AND THORACIC SPINES Physical Exam Vital signs: Vital Signs 02/10/18 11:30 02/10/18 11:54 02/10/18 11:55 Temperature Pulse Rate 95 H 88 98 H Respiratory Rate 19 17 18 Blood Pressure 242/114 H 252/112 H 252/112 H Pulse Oximetry 95 98 96 02/10/18 13:00 02/10/18 14:22 02/10/18 14:59 Temperature Pulse Rate 87 88 87 Respiratory Rate 18 16 18 Blood Pressure 237/107 H 246/115 H 164/92 H Pulse Oximetry 98 96 02/10/18 15:10 02/10/18 15:30 02/10/18 16:23 Temperature Pulse Rate 91 H 80 Respiratory Rate 18 18 Blood Pressure 165/96 H 164/74 H Pulse Oximetry 95 99 96 02/10/18 16:44 02/10/18 17:00 02/10/18 18:00 Temperature Pulse Rate 75 80 Respiratory Rate 18 16 Blood Pressure 140/70 162/77 H Pulse Oximetry 96 97 02/10/18 19:00 02/10/18 20:05 02/10/18 22:03 Temperature Pulse Rate 73 76 79 Respiratory Rate 18 18 22 Blood Pressure 127/67 153/68 H 144/65 H Pulse Oximetry 68 L 95 96 02/10/18 22:28 02/10/18 22:30 02/10/18 23:00 Temperature Pulse Rate 82 91 H Respiratory Rate 18 18 Blood Pressure 145/67 H 150/68 H Pulse Oximetry 95 95 93 L 02/11/18 00:00 02/11/18 01:00 02/11/18 01:17 Temperature Pulse Rate 88 84 82 Respiratory Rate 15 22 Blood Pressure 175/74 H 154/72 H Pulse Oximetry 92 L 95 02/11/18 02:00 02/11/18 03:00 02/11/18 04:00 Temperature 98.3 F Pulse Rate 91 H 80 83 Respiratory Rate 18 18 20 Blood Pressure 177/68 H 156/117 H 148/67 H Pulse Oximetry 02/11/18 04:44 02/11/18 05:00 02/11/18 06:00 Temperature Pulse Rate 85 81 Respiratory Rate 18 20 Blood Pressure 145/66 H 154/70 H Pulse Oximetry 96 Intake & Output 02/10/18 02/11/18 02/11/18 18:59 06:59 18:59 Intake Total 800 / 800 250 / 250 Balance 800 / 800 250 / 250 Weight 99.79 kg 100 kg Intake: IV 500 / 500 250 / 250 Cardene Inj 25 MG In NS Inj 240 500 / 500 250 / 250 ML @ 5 MG/HR 50 mls/hr IV.CONT TITRATE PRN Rx#:[id number] Oral 300 / 300 Other: # Voids 1 Weight On Admission 100 kg Narrative: GENERAL: Awake alert and oriented x3 talkative and cooperative appears to be in some distress SKIN: Warm and dry. HEAD: Atraumatic. Normocephalic. EYES: Pupils equal and round. No scleral icterus. No injection or drainage. EOMI ENT: No nasal bleeding or discharge. Mucous membranes pink and moist. Tongue is midline NECK: Trachea midline. No JVD. Supple CARDIOVASCULAR: IRRegular rate and rhythm. S1-S2 no S3 or S4 positive click mechanical RESPIRATORY: No accessory muscle use. Clear to auscultation. Breath sounds equal bilaterally. GASTROINTESTINAL: Abdomen soft, non-tender, nondistended. Hepatic and splenic margins not palpable. MUSCULOSKELETAL: Extremities without clubbing, cyanosis, or edema. No obvious deformities. NEUROLOGICAL: Awake and alert. No obvious cranial nerve deficits. Motor grossly within normal limits. 4.5 out of 5 muscle strength in the arms and legs. Normal speech. PSYCHIATRIC: Appropriate mood and affect; insight and judgment normal. Decreased range of motion secondary to back pain Results - Labs CBC & Chem 7: 02/11/18 03:39 02/11/18 03:39 Laboratory Results - last 24 hr 02/10/18 02/10/18 02/10/18 11:15 11:15 11:15 WBC 7.3 RBC 3.90 L Hgb 13.4 Hct 38.9 L MCV 99.8 MCH 34.4 H MCHC 34.5 RDW 14.6 Plt Count 172 D MPV 8.0 Neut % (Auto) 82.8 H Lymph % (Auto) 7.3 L [place] % (Auto) 9.2 H Eos % (Auto) 0.4 Baso % (Auto) 0.3 Neut # (Auto) 6.0 Lymph # (Auto) 0.5 L [place] # (Auto) 0.7 Eos # (Auto) 0.0 Baso # (Auto) 0.0 WBC Differential . Differential Comment Auto diff final PT 13.7 H INR 1.4 Sodium 136 Potassium 4.4 Chloride 103 Carbon Dioxide 26.2 Anion Gap 7 BUN 17 Creatinine 0.72 Estimated GFR Greater than 89 Random Glucose 126 H Calcium 9.5 Phosphorus Magnesium Total Bilirubin 1.6 H AST 24 ALT 22 Alkaline Phosphatase 114 Total Creatine Kinase Troponin I Total Protein 6.8 Albumin 3.4 Lipase 31 L Carcinoembryonic Ag Vitamin B12 TSH Free T4 Nasal Screen MRSA (PCR) 02/10/18 02/10/18 02/10/18 18:40 22:40 23:20 WBC RBC Hgb Hct MCV MCH MCHC RDW Plt Count MPV Neut % (Auto) Lymph % (Auto) [place] % (Auto) Eos % (Auto) Baso % (Auto) Neut # (Auto) Lymph # (Auto) [place] # (Auto) Eos # (Auto) Baso # (Auto) WBC Differential Differential Comment PT INR Sodium 138 Potassium 4.1 Chloride 103 Carbon Dioxide 28.6 Anion Gap 6 BUN 20 H Creatinine 0.70 Estimated GFR Greater than 89 Random Glucose 124 H Calcium 8.8 Phosphorus 2.8 Magnesium 1.8 Total Bilirubin 1.3 H AST 21 ALT 18 Alkaline Phosphatase 106 Total Creatine Kinase 50 42 Troponin I Less than 0.02 L 0.02 Total Protein 6.3 L Albumin 3.0 L Lipase Carcinoembryonic Ag Vitamin B12 TSH Free T4 Nasal Screen MRSA (PCR) Not detected 02/11/18 02/11/18 02/11/18 03:39 03:39 03:39 WBC 8.6 RBC 3.71 L Hgb 12.7 L Hct 36.8 L MCV 99.2 MCH 34.2 H MCHC 34.4 RDW 14.3 Plt Count 178 MPV 8.3 Neut % (Auto) 84.2 H Lymph % (Auto) 6.3 L [place] % (Auto) 8.4 H Eos % (Auto) 0.6 Baso % (Auto) 0.5 Neut # (Auto) 7.2 Lymph # (Auto) 0.5 L [place] # (Auto) 0.7 Eos # (Auto) 0.1 Baso # (Auto) 0.0 WBC Differential . Differential Comment Auto diff final PT 14.6 H INR 1.4 Sodium 137 Potassium 3.8 Chloride 104 Carbon Dioxide 25.7 Anion Gap 7 BUN 20 H Creatinine 0.66 Estimated GFR Greater than 89 Random Glucose 122 H Calcium 8.8 Phosphorus 2.4 L Magnesium 1.8 Total Bilirubin 1.7 H AST 18 ALT 21 Alkaline Phosphatase 100 Total Creatine Kinase Troponin I Total Protein 6.2 L Albumin 3.0 L Lipase Carcinoembryonic Ag Vitamin B12 TSH 0.364 Free T4 1.68 H Nasal Screen MRSA (PCR) 02/11/18 02/11/18 03:39 03:39 WBC RBC Hgb Hct MCV MCH MCHC RDW Plt Count MPV Neut % (Auto) Lymph % (Auto) [place] % (Auto) Eos % (Auto) Baso % (Auto) Neut # (Auto) Lymph # (Auto) [place] # (Auto) Eos # (Auto) Baso # (Auto) WBC Differential Differential Comment PT INR Sodium Potassium Chloride Carbon Dioxide Anion Gap BUN Creatinine Estimated GFR Random Glucose Calcium Phosphorus Magnesium Total Bilirubin AST ALT Alkaline Phosphatase Total Creatine Kinase Troponin I Total Protein Albumin Lipase Carcinoembryonic Ag 20.0 H Vitamin B12 273 TSH Free T4 Nasal Screen MRSA (PCR) - Imaging Impressions Lumbar Spine MRI 02/10/18 00:00 CONCLUSION: 1. Large infiltrative lesion of L4 again noted without pathologic fracture or perceptible extraosseous mass. No tumor-associated foraminal or spinal stenosis seen. 2. A new metastatic lesion as developed of the T12 vertebral body and please refer to the thoracic spine MRI report. 3. Multilevel degenerative changes as described, not significantly changed from longus. Thoracic Spine MRI 02/10/18 00:00 CONCLUSION: 1. Since October, a 2.7 cm metastatic lesion has developed of the T12 vertebral body and there is a mild pathologic compression fracture that appears acute or subacute. A benign-appearing mild compression fracture has developed of T12. 2. Considerable edema of the T12/L1 disc but without significant enhancement and there is vacuum phenomena on the comparison CT may be against infectious discitis. 3. No high-grade foraminal or spinal stenosis of the thoracic spine. Thoracic Spine CT 02/10/18 12:02 CONCLUSION: 1. Degenerative changes throughout the thoracic spine but no acute thoracic spine abnormality is identified. 2. Small left pleural effusion. Lumbar Spine CT 02/10/18 12:03 CONCLUSION: 1. No acute lumbar spine abnormality is identified. There is a stable abnormal sclerosis of the L4 vertebral body likely representing a metastatic bone lesion. No compression fracture is present. 2. Severe multilevel degenerative disc disease, as above, with spinal canal narrowing at L2-L3, L3-L4, and L4-L5. There is neural foraminal narrowing are also present, as above. Assessment and Plan - Plan Uncontrolled malignant hypertension -Place in the ICU -Start on Cardene drip -Resume home medications -Pain control -PRN blood pressure meds with hydralazine and Catapres -Add Norvasc 5 mg p.o. daily WEAN OFF CARDENE IF ABLE Back pain status post fall -Pain control with p.o. pain medications and IV pain medications -Scheduled Robaxin -PT and OT to eval and treat Chronic anticoagulation for mechanical heart valve -Continue on Lovenox 100 mg subcu twice daily -Continue on Coumadin -Daily PT/INR -Goal INR of 2.5-4.0 WILL HOLD OFF ON GETTING THERAPEUTIC UNTIL NS EVALUATION IN CASE NEEDS PROCEDURES Atrial fibrillation continue on Coumadin and Lovenox for goal of 2.5-4.0 Colon cancer with metastasis to the spine -Pain control -Consult Dr. TERRAZAS -PT and OT to eval and treat -Continue on Xeloda Hypertension resume home medications and try and get under control with the Cardene drip-TRY TO WEAN OFF DRIP Hyperlipidemia resume statin Urinary retention continue home medication Neuropathy SUSPECT DUE TO CHEMO continue on Lyrica Glaucoma continue on timolol/Timoptic DVT prophylaxis continue on Coumadin and Lovenox GI prophylaxis with Pepcid Continue on good bowel regimen to prevent constipation Code Status: FULL CODE Discussed Condition With: RN AND PT AND FAMILY Discharge Planning: Pending blood pressure control and able to come out of the ICU and pain to be controlled for his back
[2018-02-11] MEDS: Morphine Sulfate Inj 2 MG/ML Vial IV.PUSH PRN ×2 (13:16→20:10)
--- NOTE | 2018-02-11 13:30 | MG ---
cc: Linwood Whitehead MD, PhD TEST NUMBER: [id number] TECHNIQUE: This is a 17-channel EEG. DESCRIPTION: The background rhythm reveals generalized slowing in the theta frequency at roughly 5-6 Hz. There is also intermixed delta activity at a slower rhythm of 3-4 Hz. The amplitude is roughly 10-20 microvolts. There is fairly prominent muscle artifact throughout the tracing. There are no epileptiform discharges. There are no lateralizing features identified. Photic stimulation was performed, but no significant driving response is elicited. INTERPRETATION: Abnormal study consistent with a diffuse encephalopathy. Linwood Whitehead MD, PhD MARITZA/josr , 01:19 PM , 01:23 PM
--- NOTE | 2018-02-11 13:43 | P.CONNS ---
<Ada Flores - Last Filed: 02/11/18 17:18> History of Present Illness Service: Neurosurgery Primary Care Provider: Reyna Pastor MD History of Present Illness: 82 year old male presented to ER with complaints of low back pain. History unable to be obtained from the patient due to clinical condition. Upon reviewing of medical records, had a fall and since then has developed severe alexx pain. 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 MRI of the lumbar spine showed Large infiltrative lesion of L4 again noted without pathologic fracture or perceptible extraosseous mass. No tumor- associated foraminal or spinal stenosis seen. A new metastatic lesion as developed of the T12 vertebral body and please refer to the thoracic spine MRI report. Multilevel degenerative changes as described, not significantly changed from longus. MRI Thoracic spine showed a new 2.7 cm metastatic lesion has developed of the T12 vertebral body and there is a mild pathologic compression fracture that appears acute or subacute. A benign-appearing mild compression fracture has developed of T12. Considerable edema of the T12/L1 disc but without significant enhancement and there is vacuum phenomena on the comparison CT may be against infectious discitis. No high-grade foraminal or spinal stenosis of the thoracic spine. He was reported by the nurse that patient moves all four extremities well. He has just been medicated with Morphine and is very drowsy. Neurosurgical evaluation was requested. [facility] - Medical History Medical History: Medical History (Last Reviewed 02/11/18 @ 07:45 by Luis Fernando Plata) History of high blood pressure History of high cholesterol Hx of balanitis Hx of malignant neoplasm of colon - Surgical History Surgical History: Surgical History (Last Reviewed 02/11/18 @ 07:45 by Luis Fernando Plata) Hx of artificial heart valve replacement Hx of cholecystectomy Hx of colonoscopy Hx of heart bypass surgery - Family History Family History: Family History (Last Updated 02/10/18 @ 16:57 by Claude Taylor DO) Other Family history of hypertension Medications and Allergies Allergies Allergy/AdvReac Type Severity Reaction Status Date / Time No Known Allergies Allergy Verified 02/01/18 19:28 Home Medications Medication Instructions Recorded Confirmed Type atorvastatin 80 mg PO QPM 02/01/18 02/10/18 History leuprolide (3 month) [Eligard (3 22.5 mg SUBCUT [id number] 02/01/18 02/10/18 History month)] lisinopril 20 mg PO QPM 02/01/18 02/10/18 History metoprolol tartrate 50 mg PO BID 02/01/18 02/10/18 History oxybutynin chloride 15 mg PO QPM 02/01/18 02/10/18 History pregabalin [Lyrica] 75 mg PO HS 02/01/18 02/10/18 History capecitabine [Xeloda] 1,500 mg PO Q12H 02/10/18 02/10/18 History timolol maleate [Timoptic] 1 drp EACH EYE Q12HR 02/10/18 02/10/18 History warfarin [Coumadin] 3 mg PO DAILY 02/10/18 02/10/18 History Active Medications: Active Medications Acetaminophen (Tylenol) 650 mg PO Q6H PRN PRN Reason: FEVER >101F Acetaminophen (Tylenol) 650 mg PO Q6H PRN PRN Reason: PAIN SCALE 1 TO 2 Al Hydroxide/Mg Hydroxide (Milk Of Magnyoselin Liq) 30 ml PO Q12H PRN PRN Reason: Mild Constipation Amlodipine Besylate (Norvasc) 5 mg PO DAILY PENDING SALE TO [facility] Last Admin: 02/11/18 09:27 Dose: 5 mg Atorvastatin Calcium (Lipitor) 80 mg PO HS PENDING SALE TO [facility] Last Admin: 02/10/18 22:30 Dose: 80 mg Bisacodyl (Dulcolax Supp) 10 mg RECTAL DAILY PRN PRN Reason: SEVERE CONSITIPATION Chlorhexidine Gluconate (Chlorhexidine 2% Cloth) 3 pack TOPICAL DAILY@0400 PENDING SALE TO [facility] Stop: 02/16/18 03:59 Last Admin: 02/11/18 05:56 Dose: 3 pack Chlorhexidine Gluconate (Chlorhexidine 2% Cloth) 3 pack TOPICAL DAILY@0400 PRN PRN Reason: Extra cloth needed Stop: 02/16/18 03:59 Clonidine HCl (Catapres) 0.1 mg PO Q6H PRN PRN Reason: HYPERTENSION Enoxaparin Sodium (Lovenox Inj) 100 mg SQ Q12HR PENDING SALE TO [facility] Last Admin: 02/11/18 09:28 Dose: 100 mg Famotidine (Pepcid) 20 mg PO BID PENDING SALE TO [facility] Last Admin: 02/11/18 09:27 Dose: 20 mg Hydralazine HCl (Apresoline Inj) 20 mg IV.PUSH Q4H PRN PRN Reason: SBP>160, DBP>90 Nicardipine HCl 25 mg/ Sodium (Chloride) 250 mls @ 50 mls/hr IV.CONT TITRATE PRN; Protocol PRN Reason: Per Protocol Last Admin: 02/11/18 09:26 Dose: 5 mg/hr, 50 mls/hr Lactulose (Lactulose Liq) 30 ml PO DAILY PRN PRN Reason: SEVERE CONSITIPATION Lisinopril (Prinivil) 20 mg PO HS PENDING SALE TO [facility] Last Admin: 02/10/18 22:32 Dose: 20 mg Methocarbamol (Robaxin) 1,000 mg PO Q8HR PENDING SALE TO [facility] Last Admin: 02/11/18 11:01 Dose: Not Given Metoprolol Tartrate (Lopressor) 50 mg PO BID PENDING SALE TO [facility] Last Admin: 02/11/18 09:27 Dose: 50 mg Morphine Sulfate (Morphine Inj) 2 mg IV.PUSH Q3H PRN PRN Reason: PAIN 3-5; IF UABLE TO TAKE PO Last Admin: 02/11/18 13:16 Dose: 2 mg Morphine Sulfate (Morphine Inj) 4 mg IV.PUSH Q3H PRN PRN Reason: BREAKTHROUGH PAIN Morphine Sulfate (Morphine Inj) 4 mg IV.PUSH Q1H PRN PRN Reason: Pain Scale 7-10 (Intractable) Morphine Sulfate (Morphine Inj) 4 mg IV.PUSH Q3H PRN PRN Reason: PAIN 6-10;IF UNABLE TO TAKE PO Naloxone HCl (Narcan Inj) 0.4 mg IV.PUSH UNSCH PRN PRN Reason: SEE LABEL COMMENTS Ondansetron HCl (Zofran Inj) 4 mg IV.PUSH Q6H PRN PRN Reason: NAUSEA OR VOMITING Last Admin: 02/11/18 13:12 Dose: 4 mg Ondansetron HCl (Zofran Inj) 4 mg IV.PUSH Q6H PRN PRN Reason: NAUSEA OR VOMITING Oxycodone/Acetaminophen (Percocet 10/325 Mg) 1 tab PO Q6H PRN PRN Reason: PAIN SCALE 6 TO 10 Oxycodone/Acetaminophen (Percocet 5/325 Mg) 1 tab PO Q6H PRN PRN Reason: PAIN SCALE 3 TO 5 Last Admin: 02/11/18 03:55 Dose: 1 tab Pt Own (Capecitabine [Xeloda] 1,500 Mg) Tablet 1 each PO BID PENDING SALE TO [facility] Pharmacy Profile Note (Coumadin Consult Pharmacy) 1 each OTHER UNSCH PRN PRN Reason: PHARMACY DOCUMENTATION Pregabalin (Lyrica) 75 mg PO [facility] Last Admin: 02/10/18 22:31 Dose: 75 mg Senna/Docusate Sodium (Marlena-Colace) 1 tab PO BID PENDING SALE TO [facility] Last Admin: 02/11/18 09:31 Dose: 1 tab Sennosides (Senokot) 17.2 mg PO Q12H PRN PRN Reason: Moderate Constipation Sodium Chloride (Ns Flush) 2 ml IV.FLUSH BID PENDING SALE TO [facility] Last Admin: 02/11/18 09:28 Dose: 2 ml Sodium Chloride (Ns Flush) 2 ml IV.FLUSH PRN PRN PRN Reason: FLUSH AFTER USING IV ACCESS Timolol Maleate (Timolol 0.25% Drops) 1 drops EACH EYE Q12HR PENDING SALE TO [facility] Last Admin: 02/11/18 09:28 Dose: 1 drops Tolterodine Tartrate (Detrol La) 4 mg PO DAILY PENDING SALE TO [facility] Last Admin: 02/11/18 09:27 Dose: 4 mg Warfarin Sodium (Coumadin) 3 mg PO DAILY@1600 PENDING SALE TO [facility] Exam Vital signs: Vital Signs 02/10/18 18:00 02/10/18 19:00 02/10/18 20:05 Temperature Pulse Rate 80 73 76 Respiratory Rate 16 18 18 Blood Pressure 162/77 H 127/67 153/68 H Pulse Oximetry 68 L 95 02/10/18 22:03 02/10/18 22:28 02/10/18 22:30 Temperature Pulse Rate 79 82 Respiratory Rate 22 18 Blood Pressure 144/65 H 145/67 H Pulse Oximetry 96 95 95 02/10/18 23:00 02/11/18 00:00 02/11/18 01:00 Temperature Pulse Rate 91 H 88 84 Respiratory Rate 18 15 22 Blood Pressure 150/68 H 175/74 H 154/72 H Pulse Oximetry 93 L 92 L 95 02/11/18 01:17 02/11/18 02:00 02/11/18 03:00 Temperature Pulse Rate 82 91 H 80 Respiratory Rate 18 18 Blood Pressure 177/68 H 156/117 H Pulse Oximetry 02/11/18 04:00 02/11/18 04:44 02/11/18 05:00 Temperature 98.3 F Pulse Rate 83 85 Respiratory Rate 20 18 Blood Pressure 148/67 H 145/66 H Pulse Oximetry 96 02/11/18 06:00 02/11/18 06:45 02/11/18 07:00 Temperature Pulse Rate 81 88 84 Respiratory Rate 20 17 18 Blood Pressure 154/70 H 133/72 135/61 Pulse Oximetry 95 94 L 02/11/18 07:15 02/11/18 07:30 02/11/18 07:45 Temperature Pulse Rate 90 82 87 Respiratory Rate 19 16 20 Blood Pressure 122/59 L 143/60 H 148/63 H Pulse Oximetry 94 L 94 L 94 L 02/11/18 08:00 02/11/18 08:15 02/11/18 08:31 Temperature 98.8 F Pulse Rate 85 95 H 94 H Respiratory Rate 23 21 23 Blood Pressure 157/65 H 157/68 H 129/80 Pulse Oximetry 92 L 91 L 90 L 02/11/18 08:45 02/11/18 09:00 02/11/18 09:15 Temperature Pulse Rate 82 89 92 H Respiratory Rate 18 19 20 Blood Pressure 149/65 H 138/65 134/65 Pulse Oximetry 91 L 02/11/18 09:31 02/11/18 09:45 02/11/18 10:00 Temperature Pulse Rate 105 H 88 86 Respiratory Rate 38 H 24 18 Blood Pressure 146/62 H 137/63 144/64 H Pulse Oximetry 77 L 02/11/18 10:15 02/11/18 10:30 02/11/18 10:45 Temperature Pulse Rate 83 83 82 Respiratory Rate 26 H 20 27 H Blood Pressure 131/65 144/67 H 141/63 H Pulse Oximetry 94 L 02/11/18 11:00 02/11/18 11:15 02/11/18 11:30 Temperature Pulse Rate 79 78 71 Respiratory Rate 26 H 22 19 Blood Pressure 143/66 H 142/65 H 132/61 Pulse Oximetry 91 L 94 L 93 L 02/11/18 11:45 02/11/18 12:00 02/11/18 12:15 Temperature 98.9 F Pulse Rate 76 84 74 Respiratory Rate 17 20 34 H Blood Pressure 124/58 L 148/66 H 158/67 H Pulse Oximetry 94 L 92 L 92 L 02/11/18 12:31 02/11/18 12:46 Temperature Pulse Rate 87 77 Respiratory Rate 44 H 32 H Blood Pressure 152/60 H 136/60 Pulse Oximetry 89 L 91 L Intake & Output 02/10/18 02/11/18 02/11/18 18:59 06:59 18:59 Intake Total 800 / 800 250 / 250 Balance 800 / 800 250 / 250 Weight 99.79 kg 100 kg Intake: IV 500 / 500 250 / 250 Cardene Inj 25 MG In NS Inj 240 500 / 500 250 / 250 ML @ 5 MG/HR 50 mls/hr IV.CONT TITRATE PRN Rx#:[id number] Oral 300 / 300 Other: # Voids 1 Weight On Admission 100 kg Results - Laboratory Findings CBC and BMP: 02/11/18 03:39 02/11/18 03:39 Abnormal lab findings: Abnormal Labs 02/10/18 02/10/18 02/10/18 11:15 11:15 11:15 RBC 3.90 L Hgb Hct 38.9 L MCH 34.4 H Neut % (Auto) 82.8 H Lymph % (Auto) 7.3 L [place] % (Auto) 9.2 H Lymph # (Auto) 0.5 L PT 13.7 H BUN Random Glucose 126 H Phosphorus Total Bilirubin 1.6 H Troponin I Total Protein Albumin Lipase 31 L Carcinoembryonic Ag Free T4 02/10/18 02/10/18 02/11/18 18:40 22:40 03:39 RBC 3.71 L Hgb 12.7 L Hct 36.8 L MCH 34.2 H Neut % (Auto) 84.2 H Lymph % (Auto) 6.3 L [place] % (Auto) 8.4 H Lymph # (Auto) 0.5 L PT BUN 20 H Random Glucose 124 H Phosphorus Total Bilirubin 1.3 H Troponin I Less than 0.02 L Total Protein 6.3 L Albumin 3.0 L Lipase Carcinoembryonic Ag Free T4 02/11/18 02/11/18 02/11/18 03:39 03:39 03:39 RBC Hgb Hct MCH Neut % (Auto) Lymph % (Auto) [place] % (Auto) Lymph # (Auto) PT 14.6 H BUN 20 H Random Glucose 122 H Phosphorus 2.4 L Total Bilirubin 1.7 H Troponin I Total Protein 6.2 L Albumin 3.0 L Lipase Carcinoembryonic Ag 20.0 H Free T4 1.68 H <Sergio,Darrell - Last Filed: 02/11/18 18:18> History of Present Illness Consult date: 02/11/18 Requesting Physician: Edgar Linton Reason for Consult: Metastatioc lesions to spine, T12 fracture Primary Care Provider: Reyna Pastor MD Chief Complaint: BACK PAIN/INJURY History of Present Illness: This is Patient is a 82-year-old gentleman with a past medical history of colon cancer with known metastasis to the spine who presented to the emergency department via the EMS today for evaluation of low back pain. Patient states this is been going on for at least the past 10 days, when he suffered a mechanical fall. Patient denied hitting his head or any loss of consciousness. States that he has been largely bedbound since that time due to pain. Patient states that pain is sharp with at least an 8 out of 10 worsened by motion And movements. Nothing has really alleviated the back pain. The patient denies any radiation of the pain. He denies any numbness, he denies any tingling, he denies any weakness of the lower extremities, he denies any saddle anesthesia or incontinence. He has a new patient appointment with Dr. Whitehead of neurology later this month is followed by Dr. Terrazas of oncology. His pain became under somewhat control but then it was noted that his blood pressure was elevated over 250 systolic and patient was started on a Cardene drip after his oral medications were started and did not come close to getting his blood pressure under control. Therefore patient is admitted to the ICU on a Cardene drip will have other medications and try to wean him off. His past medical history is significant for hyperlipidemia prostate cancer hypertension overflow incontinence, neuropathy, colon cancer, glaucoma, and chronic anticoagulation for atrial fibrillation as well as history of mechanical heart valve also has a history of high cholesterol history of balanitis and history of malignant neoplasm of the colon. Has had a cholecystectomy as well as a colonoscopy and heart bypass surgery PMF - History History Provided By: Patient - Medical History Medical History: Medical History (Last Reviewed 02/11/18 @ 07:45 by Luis Fernando Plata) History of high blood pressure History of high cholesterol Hx of balanitis Hx of malignant neoplasm of colon - Surgical History Surgical History: Surgical History (Last Reviewed 02/11/18 @ 07:45 by Luis Fernando Plata) Hx of artificial heart valve replacement Hx of cholecystectomy Hx of colonoscopy Hx of heart bypass surgery - Family History Family History: Family History (Last Updated 02/10/18 @ 16:57 by Claude Taylor DO) Other Family history of hypertension - Tobacco History Second Hand Smoke Exposure: No Tobacco Use In Past 30 Days: No Smoking Status: Never smoker - Alcohol History How Often Do You Have a Drink Containing Alcohol: 4 or more times a week - Substance Use History Substance History: No History of Abuse - Travel History History of Recent Travel: No Recent Travel in the [place] Within the Last 8 Weeks: No Recent Travel Out of the Country Within the Last 8 Weeks: No - Immunization History Tetanus Immunization: <5 Years Medications and Allergies Active Medications: Active Medications Acetaminophen (Tylenol) 650 mg PO Q6H PRN PRN Reason: FEVER >101F Acetaminophen (Tylenol) 650 mg PO Q6H PRN PRN Reason: PAIN SCALE 1 TO 2 Al Hydroxide/Mg Hydroxide (Milk Of Magnyoselin Liq) 30 ml PO Q12H PRN PRN Reason: Mild Constipation Amlodipine Besylate (Norvasc) 5 mg PO DAILY PENDING SALE TO [facility] Last Admin: 02/11/18 09:27 Dose: 5 mg Atorvastatin Calcium (Lipitor) 80 mg PO HS PENDING SALE [facility] Last Admin: 02/10/18 22:30 Dose: 80 mg Bisacodyl (Dulcolax Supp) 10 mg RECTAL DAILY PRN PRN Reason: SEVERE CONSITIPATION Chlorhexidine Gluconate (Chlorhexidine 2% Cloth) 3 pack TOPICAL DAILY@0400 PENDING SALE TO [facility] Stop: 02/16/18 03:59 Last Admin: 02/11/18 05:56 Dose: 3 pack Chlorhexidine Gluconate (Chlorhexidine 2% Cloth) 3 pack TOPICAL DAILY@0400 PRN PRN Reason: Extra cloth needed Stop: 02/16/18 03:59 Clonidine HCl (Catapres) 0.1 mg PO Q6H PRN PRN Reason: HYPERTENSION Enoxaparin Sodium (Lovenox Inj) 100 mg SQ Q12HR PENDING SALE TO [facility] Last Admin: 02/11/18 09:28 Dose: 100 mg Famotidine (Pepcid) 20 mg PO BID PENDING SALE [facility] Last Admin: 02/11/18 09:27 Dose: 20 mg Hydralazine HCl (Apresoline Inj) 20 mg IV.PUSH Q4H PRN PRN Reason: SBP>160, DBP>90 Nicardipine HCl 25 mg/ Sodium (Chloride) 250 mls @ 50 mls/hr IV.CONT TITRATE PRN; Protocol PRN Reason: Per Protocol Last Admin: 02/11/18 09:26 Dose: 5 mg/hr, 50 mls/hr Lactulose (Lactulose Liq) 30 ml PO DAILY PRN PRN Reason: SEVERE CONSITIPATION Lisinopril (Prinivil) 20 mg PO HS PENDING SALE [facility] Last Admin: 02/10/18 22:32 Dose: 20 mg Methocarbamol (Robaxin) 1,000 mg PO Q8HR PENDING SALE [facility] Last Admin: 02/11/18 11:01 Dose: Not Given Metoprolol Tartrate (Lopressor) 50 mg PO BID PENDING SALE [facility] Last Admin: 02/11/18 09:27 Dose: 50 mg Morphine Sulfate (Morphine Inj) 2 mg IV.PUSH Q3H PRN PRN Reason: PAIN 3-5; IF UABLE TO TAKE PO Last Admin: 02/11/18 13:16 Dose: 2 mg Morphine Sulfate (Morphine Inj) 4 mg IV.PUSH Q3H PRN PRN Reason: BREAKTHROUGH PAIN Morphine Sulfate (Morphine Inj) 4 mg IV.PUSH Q1H PRN PRN Reason: Pain Scale 7-10 (Intractable) Morphine Sulfate (Morphine Inj) 4 mg IV.PUSH Q3H PRN PRN Reason: PAIN 6-10;IF UNABLE TO TAKE PO Naloxone HCl (Narcan Inj) 0.4 mg IV.PUSH UNSCH PRN PRN Reason: SEE LABEL COMMENTS Ondansetron HCl (Zofran Inj) 4 mg IV.PUSH Q6H PRN PRN Reason: NAUSEA OR VOMITING Last Admin: 02/11/18 13:12 Dose: 4 mg Ondansetron HCl (Zofran Inj) 4 mg IV.PUSH Q6H PRN PRN Reason: NAUSEA OR VOMITING Oxycodone/Acetaminophen (Percocet 10/325 Mg) 1 tab PO Q6H PRN PRN Reason: PAIN SCALE 6 TO 10 Oxycodone/Acetaminophen (Percocet 5/325 Mg) 1 tab PO Q6H PRN PRN Reason: PAIN SCALE 3 TO 5 Last Admin: 02/11/18 03:55 Dose: 1 tab Pt Own (Capecitabine [Xeloda] 1,500 Mg) Tablet 1 each PO BID PENDING SALE TO [facility] Pharmacy Profile Note (Coumadin Consult Pharmacy) 1 each OTHER UNSCH PRN PRN Reason: PHARMACY DOCUMENTATION Pregabalin (Lyrica) 75 mg PO HS PENDING SALE [facility] Last Admin: 02/10/18 22:31 Dose: 75 mg Senna/Docusate Sodium (Marlena-Colace) 1 tab PO BID PENDING SALE [facility] Last Admin: 02/11/18 09:31 Dose: 1 tab Sennosides (Senokot) 17.2 mg PO Q12H PRN PRN Reason: Moderate Constipation Sodium Chloride (Ns Flush) 2 ml IV.FLUSH BID PENDING SALE [facility] Last Admin: 02/11/18 09:28 Dose: 2 ml Sodium Chloride (Ns Flush) 2 ml IV.FLUSH PRN PRN PRN Reason: FLUSH AFTER USING IV ACCESS Timolol Maleate (Timolol 0.25% Drops) 1 drops EACH EYE Q12HR PENDING SALE TO [facility] Last Admin: 02/11/18 09:28 Dose: 1 drops Tolterodine Tartrate (Detrol La) 4 mg PO DAILY PENDING S[facility] Last Admin: 02/11/18 09:27 Dose: 4 mg Warfarin Sodium (Coumadin) 3 mg PO DAILY@1600 PENDING SALE [facility] Exam Vital signs: Vital Signs 02/10/18 14:22 02/10/18 14:59 02/10/18 15:10 Temperature Pulse Rate 88 87 91 H Respiratory Rate 16 18 18 Blood Pressure 246/115 H 164/92 H 165/96 H Pulse Oximetry 96 95 02/10/18 15:30 02/10/18 16:23 02/10/18 16:44 Temperature Pulse Rate 80 Respiratory Rate 18 Blood Pressure 164/74 H Pulse Oximetry 99 96 96 02/10/18 17:00 02/10/18 18:00 02/10/18 19:00 Temperature Pulse Rate 75 80 73 Respiratory Rate 18 16 18 Blood Pressure 140/70 162/77 H 127/67 Pulse Oximetry 97 68 L 02/10/18 20:05 02/10/18 22:03 02/10/18 22:28 Temperature Pulse Rate 76 79 82 Respiratory Rate 18 22 18 Blood Pressure 153/68 H 144/65 H 145/67 H Pulse Oximetry 95 96 95 02/10/18 22:30 02/10/18 23:00 02/11/18 00:00 Temperature Pulse Rate 91 H 88 Respiratory Rate 18 15 Blood Pressure 150/68 H 175/74 H Pulse Oximetry 95 93 L 92 L 02/11/18 01:00 02/11/18 01:17 12/04/18 02:00 Temperature Pulse Rate 84 82 91 H Respiratory Rate 22 18 Blood Pressure 154/72 H 177/68 H Pulse Oximetry 95 02/11/18 03:00 02/11/18 04:00 02/11/18 04:44 Temperature 98.3 F Pulse Rate 80 83 Respiratory Rate 18 20 Blood Pressure 156/117 H 148/67 H Pulse Oximetry 96 02/11/18 05:00 02/11/18 06:00 02/11/18 06:45 Temperature Pulse Rate 85 81 88 Respiratory Rate 18 20 17 Blood Pressure 145/66 H 154/70 H 133/72 Pulse Oximetry 95 02/11/18 07:00 02/11/18 07:15 02/11/18 07:30 Temperature Pulse Rate 84 90 82 Respiratory Rate 18 19 16 Blood Pressure 135/61 122/59 L 143/60 H Pulse Oximetry 94 L 94 L 94 L 02/11/18 07:45 02/11/18 08:00 02/11/18 08:15 Temperature 98.8 F Pulse Rate 87 85 95 H Respiratory Rate 20 23 21 Blood Pressure 148/63 H 157/65 H 157/68 H Pulse Oximetry 94 L 92 L 91 L 02/11/18 08:31 02/11/18 08:45 02/11/18 09:00 Temperature Pulse Rate 94 H 82 89 Respiratory Rate 23 18 19 Blood Pressure 129/80 149/65 H 138/65 Pulse Oximetry 90 L 91 L 02/11/18 09:15 02/11/18 09:31 02/11/18 09:45 Temperature Pulse Rate 92 H 105 H 88 Respiratory Rate 20 38 H 24 Blood Pressure 134/65 146/62 H 137/63 Pulse Oximetry 77 L 02/11/18 10:00 02/11/18 10:15 02/11/18 10:30 Temperature Pulse Rate 86 83 83 Respiratory Rate 18 26 H 20 Blood Pressure 144/64 H 131/65 144/67 H Pulse Oximetry 02/11/18 10:45 02/11/18 11:00 02/11/18 11:15 Temperature Pulse Rate 82 79 78 Respiratory Rate 27 H 26 H 22 Blood Pressure 141/63 H 143/66 H 142/65 H Pulse Oximetry 94 L 91 L 94 L 02/11/18 11:30 02/11/18 11:45 02/11/18 12:00 Temperature 98.9 F Pulse Rate 71 76 84 Respiratory Rate 19 17 20 Blood Pressure 132/61 124/58 L 148/66 H Pulse Oximetry 93 L 94 L 92 L 02/11/18 12:15 02/11/18 12:31 02/11/18 12:46 Temperature Pulse Rate 74 87 77 Respiratory Rate 34 H 44 H 32 H Blood Pressure 158/67 H 152/60 H 136/60 Pulse Oximetry 92 L 89 L 91 L Intake & Output 02/10/18 02/11/18 02/11/18 18:59 06:59 18:59 Intake Total 800 / 800 250 / 250 Balance 800 / 800 250 / 250 Weight 99.79 kg 100 kg Intake: IV 500 / 500 250 / 250 Cardene Inj 25 MG In NS Inj 240 500 / 500 250 / 250 ML @ 5 MG/HR 50 mls/hr IV.CONT TITRATE PRN Rx#:[id number] Oral 300 / 300 Other: # Voids 1 Weight On Admission 100 kg Narrative: GENERAL: in NAD, SKIN: Warm and dry. HEAD: Atraumatic. Normocephalic. EYES: Pupils equal and round. ENT: No nasal bleeding or discharge. NECK: Trachea midline. No JVD. CARDIOVASCULAR: Regular rate and rhythm. RESPIRATORY: No accessory muscle use. GASTROINTESTINAL: Abdomen soft, non-tender, nondistended. MUSCULOSKELETAL: Extremities without clubbing, cyanosis, or edema. No obvious deformities. NEUROLOGICAL: Awake and alert. Oriented 1-2, no aphasia, fluent articulate, No facial asymmetry, OU 3-2mm, eomi, VFF, No drift, upper extremity and restraints, able to raise both lower extremity gravity for at least 4-5 seconds , hammertoes in his feet dorsiflexion plantarflexion strength 5- out of 5 with slight reduced fine toe movement, mild hip flexor weakness but again able to raise to gravity, reflexes 1-2+ trace at the ankle plantarflex her no clonus elicited, reduce pinprick up to the level of the knees also reduced in the hands up to the wrist stocking glove distribution, gait not assessed secondary fall risk PSYCHIATRIC: Calm Results - Laboratory Findings CBC and BMP: 02/11/18 03:39 02/11/18 03:39 Abnormal lab findings: Abnormal Labs 02/10/18 02/10/18 02/10/18 11:15 11:15 11:15 RBC 3.90 L Hgb Hct 38.9 L MCH 34.4 H Neut % (Auto) 82.8 H Lymph % (Auto) 7.3 L [place] % (Auto) 9.2 H Lymph # (Auto) 0.5 L PT 13.7 H BUN Random Glucose 126 H Phosphorus Total Bilirubin 1.6 H Troponin I Total Protein Albumin Lipase 31 L Carcinoembryonic Ag Free T4 02/10/18 02/10/18 02/11/18 18:40 22:40 03:39 RBC 3.71 L Hgb 12.7 L Hct 36.8 L MCH 34.2 H Neut % (Auto) 84.2 H Lymph % (Auto) 6.3 L [place] % (Auto) 8.4 H Lymph # (Auto) 0.5 L PT BUN 20 H Random Glucose 124 H Phosphorus Total Bilirubin 1.3 H Troponin I Less than 0.02 L Total Protein 6.3 L Albumin 3.0 L Lipase Carcinoembryonic Ag Free T4 02/11/18 02/11/18 02/11/18 03:39 03:39 03:39 RBC Hgb Hct MCH Neut % (Auto) Lymph % (Auto) [place] % (Auto) Lymph # (Auto) PT 14.6 H BUN 20 H Random Glucose 122 H Phosphorus 2.4 L Total Bilirubin 1.7 H Troponin I Total Protein 6.2 L Albumin 3.0 L Lipase Carcinoembryonic Ag 20.0 H Free T4 1.68 H Assessment and Plan - Plan - Diagnosis (1) Lumbar spinal stenosis Code(s): M48.061 - Spinal stenosis, lumbar region without neurogenic claudication Status: Acute Current Visit: Yes (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 Large infiltrative lesion of L4 again noted without pathologic fracture or perceptible extraosseous mass. No tumor-associated foraminal or spinal stenosis seen. 2. A new metastatic lesion as developed of the T12 vertebral body and please refer to the thoracic spine MRI report. 3. Multilevel degenerative changes as described, not significantly changed from longus. Thoracic Spine MRI 02/10/18 00:00 CONCLUSION: 1. Since October, a 2.7 cm metastatic lesion has developed of the T12 vertebral body and there is a mild pathologic compression fracture that appears acute or subacute. A benign-appearing mild compression fracture has developed of T12. 2. Considerable edema of the T12/L1 disc but without significant enhancement and there is vacuum phenomena on the comparison CT may be against infectious discitis. 3. No high-grade foraminal or spinal stenosis of the thoracic spine. Thoracic Spine CT 02/10/18 12:02 CONCLUSION: 1. Degenerative changes throughout the thoracic spine but no acute thoracic spine abnormality is identified. 2. Small left pleural effusion. Lumbar Spine CT 02/10/18 12:03 CONCLUSION: 1. No acute lumbar spine abnormality is identified. There is a stable abnormal sclerosis of the L4 vertebral body likely representing a metastatic bone lesion. No compression fracture is present. 2. Severe multilevel degenerative disc disease, as above, with spinal canal narrowing at L2-L3, L3-L4, and L4-L5. There is neural foraminal narrowing are also present, as above. Neuro: neuro checks in a serial fashion. 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 recommend consultation with Dr Gutierrez, radiation oncology T12 fracture. Conservative treatment with TLSo brace versus kyphoplasty. He is at very high surgical risk Altered mental status, EEG consistent with diffuse encephalopathy. Likely metabolic. MRI brain to rule out metastatic lesion Pulmonary: aggressive pulmonary toilette, nasotracheal suction, and breathing treatments with nebulizers. Daily PT and OT Renal: Continue to monitor closely urine output, BUN and creatinine Endocrine: Continue to Monitor serial Acu checks and SSI as needed in detail ID continue to monitor for signs of infection Continue Protonix for stress ulcer prophylaxis Continue Efraín hose and SCD's for DVT prophylaxis Further recommendations will be provided depending on the patient's clinical evaluation and follow up studies.
[2018-02-11 15:30] LABS: Hemoglobin A1c 5.3 % (4.3-6.0)
--- NOTE | 2018-02-11 15:51 | P.PNONC ---
Subjective Interval history: Patient lying in bed, currently in four-point soft restraints. His eyes are closed when asked to open his eyes he does attempt. He follows simple commands like squeezing hands and wiggling feet. He does not speak. His son is present and we have had a long discussion, RN reports that neurosurgeon would recommend radiation only and no surgery. We will await his final report. The son will await test results and discuss further with his mother. Offered palliative consult, the son prefers to wait until tomorrow to see how he is doing and to get all the test results Objective Vital Signs/Intake & Output: Vital Signs 02/10/18 16:23 02/10/18 16:44 02/10/18 17:00 Temperature Pulse Rate 75 Respiratory Rate 18 Blood Pressure 140/70 Pulse Oximetry 96 96 97 02/10/18 18:00 02/10/18 19:00 02/10/18 20:05 Temperature Pulse Rate 80 73 76 Respiratory Rate 16 18 18 Blood Pressure 162/77 H 127/67 153/68 H Pulse Oximetry 68 L 95 02/10/18 22:03 02/10/18 22:28 02/10/18 22:30 Temperature Pulse Rate 79 82 Respiratory Rate 22 18 Blood Pressure 144/65 H 145/67 H Pulse Oximetry 96 95 95 02/10/18 23:00 02/11/18 00:00 02/11/18 01:00 Temperature Pulse Rate 91 H 88 84 Respiratory Rate 18 15 22 Blood Pressure 150/68 H 175/74 H 154/72 H Pulse Oximetry 93 L 92 L 95 02/11/18 01:17 02/11/18 02:00 02/11/18 03:00 Temperature Pulse Rate 82 91 H 80 Respiratory Rate 18 18 Blood Pressure 177/68 H 156/117 H Pulse Oximetry 02/11/18 04:00 02/11/18 04:44 02/11/18 05:00 Temperature 98.3 F Pulse Rate 83 85 Respiratory Rate 20 18 Blood Pressure 148/67 H 145/66 H Pulse Oximetry 96 02/11/18 06:00 02/11/18 06:45 02/11/18 07:00 Temperature Pulse Rate 81 88 84 Respiratory Rate 20 17 18 Blood Pressure 154/70 H 133/72 135/61 Pulse Oximetry 95 94 L 02/11/18 07:15 02/11/18 07:30 02/11/18 07:45 Temperature Pulse Rate 90 82 87 Respiratory Rate 19 16 20 Blood Pressure 122/59 L 143/60 H 148/63 H Pulse Oximetry 94 L 94 L 94 L 02/11/18 08:00 02/11/18 08:15 02/11/18 08:31 Temperature 98.8 F Pulse Rate 85 95 H 94 H Respiratory Rate 23 21 23 Blood Pressure 157/65 H 157/68 H 129/80 Pulse Oximetry 92 L 91 L 90 L 02/11/18 08:45 02/11/18 09:00 02/11/18 09:15 Temperature Pulse Rate 82 89 92 H Respiratory Rate 18 19 20 Blood Pressure 149/65 H 138/65 134/65 Pulse Oximetry 91 L 02/11/18 09:31 02/11/18 09:45 02/11/18 10:00 Temperature Pulse Rate 105 H 88 86 Respiratory Rate 38 H 24 18 Blood Pressure 146/62 H 137/63 144/64 H Pulse Oximetry 77 L 02/11/18 10:15 02/11/18 10:30 02/11/18 10:45 Temperature Pulse Rate 83 83 82 Respiratory Rate 26 H 20 27 H Blood Pressure 131/65 144/67 H 141/63 H Pulse Oximetry 94 L 02/11/18 11:00 02/11/18 11:15 02/11/18 11:30 Temperature Pulse Rate 79 78 71 Respiratory Rate 26 H 22 19 Blood Pressure 143/66 H 142/65 H 132/61 Pulse Oximetry 91 L 94 L 93 L 02/11/18 11:45 02/11/18 12:00 02/11/18 12:15 Temperature 98.9 F Pulse Rate 76 84 74 Respiratory Rate 17 20 34 H Blood Pressure 124/58 L 148/66 H 158/67 H Pulse Oximetry 94 L 92 L 92 L 02/11/18 12:31 02/11/18 12:46 Temperature Pulse Rate 87 77 Respiratory Rate 44 H 32 H Blood Pressure 152/60 H 136/60 Pulse Oximetry 89 L 91 L Intake & Output 02/10/18 02/11/18 02/11/18 18:59 06:59 18:59 Intake Total 800 / 800 250 / 250 Balance 800 / 800 250 / 250 Weight 99.79 kg 100 kg Intake: IV 500 / 500 250 / 250 Cardene Inj 25 MG In NS Inj 240 500 / 500 250 / 250 ML @ 5 MG/HR 50 mls/hr IV.CONT TITRATE PRN Rx#:[id number] Oral 300 / 300 Other: # Voids 1 Weight On Admission 100 kg Result Diagrams: 02/11/18 03:39 02/11/18 03:39 Laboratory Results: Laboratory Results - last 24 hr 02/10/18 02/10/18 02/10/18 18:40 22:40 23:20 WBC RBC Hgb Hct MCV MCH MCHC RDW Plt Count MPV Neut % (Auto) Lymph % (Auto) [place] % (Auto) Eos % (Auto) Baso % (Auto) Neut # (Auto) Lymph # (Auto) [place] # (Auto) Eos # (Auto) Baso # (Auto) WBC Differential Differential Comment PT INR Sodium 138 Potassium 4.1 Chloride 103 Carbon Dioxide 28.6 Anion Gap 6 BUN 20 H Creatinine 0.70 Estimated GFR Greater than 89 Random Glucose 124 H Calcium 8.8 Phosphorus 2.8 Magnesium 1.8 Total Bilirubin 1.3 H AST 21 ALT 18 Alkaline Phosphatase 106 Total Creatine Kinase 50 42 Troponin I Less than 0.02 L 0.02 Total Protein 6.3 L Albumin 3.0 L Carcinoembryonic Ag Vitamin B12 TSH Free T4 Nasal Screen MRSA (PCR) Not detected 02/11/18 02/11/18 02/11/18 03:39 03:39 03:39 WBC 8.6 RBC 3.71 L Hgb 12.7 L Hct 36.8 L MCV 99.2 MCH 34.2 H MCHC 34.4 RDW 14.3 Plt Count 178 MPV 8.3 Neut % (Auto) 84.2 H Lymph % (Auto) 6.3 L [place] % (Auto) 8.4 H Eos % (Auto) 0.6 Baso % (Auto) 0.5 Neut # (Auto) 7.2 Lymph # (Auto) 0.5 L [place] # (Auto) 0.7 Eos # (Auto) 0.1 Baso # (Auto) 0.0 WBC Differential . Differential Comment Auto diff final PT 14.6 H INR 1.4 Sodium 137 Potassium 3.8 Chloride 104 Carbon Dioxide 25.7 Anion Gap 7 BUN 20 H Creatinine 0.66 Estimated GFR Greater than 89 Random Glucose 122 H Calcium 8.8 Phosphorus 2.4 L Magnesium 1.8 Total Bilirubin 1.7 H AST 18 ALT 21 Alkaline Phosphatase 100 Total Creatine Kinase Troponin I Total Protein 6.2 L Albumin 3.0 L Carcinoembryonic Ag Vitamin B12 TSH 0.364 Free T4 1.68 H Nasal Screen MRSA (PCR) 02/11/18 02/11/18 03:39 03:39 WBC RBC Hgb Hct MCV MCH MCHC RDW Plt Count MPV Neut % (Auto) Lymph % (Auto) [place] % (Auto) Eos % (Auto) Baso % (Auto) Neut # (Auto) Lymph # (Auto) [place] # (Auto) Eos # (Auto) Baso # (Auto) WBC Differential Differential Comment PT INR Sodium Potassium Chloride Carbon Dioxide Anion Gap BUN Creatinine Estimated GFR Random Glucose Calcium Phosphorus Magnesium Total Bilirubin AST ALT Alkaline Phosphatase Total Creatine Kinase Troponin I Total Protein Albumin Carcinoembryonic Ag 20.0 H Vitamin B12 273 TSH Free T4 Nasal Screen MRSA (PCR) Imaging Studies: Impressions Lumbar Spine MRI 02/10/18 00:00 CONCLUSION: 1. Large infiltrative lesion of L4 again noted without pathologic fracture or perceptible extraosseous mass. No tumor-associated foraminal or spinal stenosis seen. 2. A new metastatic lesion as developed of the T12 vertebral body and please refer to the thoracic spine MRI report. 3. Multilevel degenerative changes as described, not significantly changed from longus. Thoracic Spine MRI 02/10/18 00:00 CONCLUSION: 1. Since October, a 2.7 cm metastatic lesion has developed of the T12 vertebral body and there is a mild pathologic compression fracture that appears acute or subacute. A benign-appearing mild compression fracture has developed of T12. 2. Considerable edema of the T12/L1 disc but without significant enhancement and there is vacuum phenomena on the comparison CT may be against infectious discitis. 3. No high-grade foraminal or spinal stenosis of the thoracic spine. Medications: Active Medications Generic Name Dose Route Start Last Admin Trade Name Freq PRN Reason Stop Dose Admin Amlodipine Besylate 5 mg 02/10/18 17:15 02/11/18 09:27 Norvasc PO 5 mg DAILY SAMM Administration Atorvastatin Calcium 80 mg 02/10/18 21:00 02/10/18 22:30 Lipitor PO 80 mg HS SAMM Administration Chlorhexidine Gluconate 3 pack 02/11/18 04:00 02/11/18 05:56 Chlorhexidine 2% Cloth TOPICAL 02/16/18 03:59 3 pack DAILY@0400 SAMM Administration Enoxaparin Sodium 100 mg 02/10/18 17:00 02/11/18 09:28 Lovenox Inj SQ 100 mg Q12HR SAMM Administration Famotidine 20 mg 02/10/18 21:00 02/11/18 09:27 Pepcid PO 20 mg BID SAMM Administration Nicardipine HCl 25 mg/ Sodium 250 mls @ 50 mls/hr 02/10/18 14:28 02/11/18 09: 26 Chloride IV.CONT 5 mg/hr TITRATE PRN 50 mls/hr Per Protocol Administration Protocol 5 MG/HR Lisinopril 20 mg 02/10/18 21:00 02/10/18 22:32 Prinivil PO 20 mg HS SAMM Administration Methocarbamol 1,000 mg 02/10/18 22:00 02/11/18 11:01 Robaxin PO Not Given Q8HR SAMM Metoprolol Tartrate 50 mg 02/10/18 21:00 02/11/18 09:27 Lopressor PO 50 mg BID SAMM Administration Morphine Sulfate 2 mg 02/10/18 16:23 02/11/18 13:16 Morphine Inj IV.PUSH 2 mg Q3H PRN Administration PAIN 3-5; IF UABLE TO TAKE PO Ondansetron HCl 4 mg 02/10/18 16:23 02/11/18 13:12 Zofran Inj IV.PUSH 4 mg Q6H PRN Administration NAUSEA OR VOMITING Oxycodone/Acetaminophen 1 tab 02/10/18 16:23 02/11/18 03:55 Percocet 5/325 Mg PO 1 tab Q6H PRN Administration PAIN SCALE 3 TO 5 Pregabalin 75 mg 02/10/18 21:00 02/10/18 22:31 Lyrica PO 75 mg HS SAMM Administration Senna/Docusate Sodium 1 tab 02/10/18 21:00 02/11/18 09:31 Marlena-Colace PO 1 tab BID SAMM Administration Sodium Chloride 2 ml 02/10/18 21:00 02/11/18 09:28 Ns Flush IV.FLUSH 2 ml BID SAMM Administration Timolol Maleate 1 drops 02/10/18 21:00 02/11/18 09:28 Timolol 0.25% Drops EACH EYE 1 drops Q12HR SAMM Administration Tolterodine Tartrate 4 mg 02/11/18 09:00 02/11/18 09:27 Detrol La PO 4 mg DAILY SAMM Administration Objective Remarks: GENERAL: Elderly male patient, in no acute distress. SKIN: Pale, warm and dry. HEAD: Normocephalic. EYES: No scleral icterus. Yellow crusted drainage left eyelid. NECK: Supple, trachea midline. No JVD or lymphadenopathy. CARDIOVASCULAR: Regular rate and rhythm without murmurs. RESPIRATORY: Breath sounds distant, equal bilaterally. No accessory muscle use. GASTROINTESTINAL: Abdomen soft, non-tender, nondistended. EXTREMITIES: No cyanosis, or edema. MUSCULOSKELETAL: Adequate muscle tone. NEUROLOGICAL: Follows simple commands.Does not answer questions. Assessment/Plan - Plan Mr Quiroz is an 82-year-old gentleman with colon cancer with multiple relapses. He has been on palliative Avastin and FOLFIRI chemotherapy since June 2017, his last treatment was 01/15/2018. He has most recently had some mental status changes and severe back pain. Recommendations: 1. Colon cancer with multiple relapses. His last chemotherapy treatment was on 01/15/2018. 2. Weakness of both lower legs and severe back pain. 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 There is a mild pathologic compression fraction that appears acute or subacute. A benign appearing mild compression fraction of T12. Considerable edema of the T12/L1 disc. Neurosurgery was consulted, per RN, Dr. Hill stated no surgical recommendations and radiation only. Will await his final dictated report. 3. Altered mental status, neurology is following. EEG consistent with diffuse encephalopathy. 4. Discussed with the patient's son and RN, all questions were answered to his satisfaction.
--- NOTE | 2018-02-11 18:37 | ECHRPT ---
Indication: htn heart disease CONCLUSIONS The left ventricular systolic function is normal with an estimated ejection fraction in the range of 55-60%. Mild concentric left ventricular hypertrophy. [id number] mitral valve regurgitation. Aortic valve prosthesis with mild stenosis (peak 29, mean 16, JOSE 1.0). There is trace tricuspid valve regurgitation. The estimated pulmonary arterial pressure is 41 mmHg. BP: / HR: Rhythm: MEASUREMENTS (Male / Female) Normal Values Technical Quality:Very technically difficult study 2D ECHO LV Diastolic Diameter PLAX 4.6 cm 4.2 - 5.9 / 3.9 - 5.3 cm LV Systolic Diameter PLAX 3.5 cm IVS Diastolic Thickness 1.1 cm 0.6 - 1.0 / 0.6 - 0.9 cm LVPW Diastolic Thickness 1.4 cm 0.6 - 1.0 / 0.6 - 0.9 cm LV Relative Wall Thickness 0.5 RV Internal Dim ED PLAX 3.4 cm LVOT Diameter 1.7 cm Aortic Root Diameter 2.8 cm LA Systolic Diameter LX 4.3 cm 3.0 - 4.0 / 2.7 - 3.8 cm M-MODE Aortic Root Diameter MM 3.8 cm LA Systolic Diameter MM 4.8 cm LA Ao Ratio MM 1.3 AV Cusp Separation MM 1.6 cm DOPPLER AV Peak Velocity 272.5 cm/s AV Peak Gradient 29.7 mmHg AV Mean Gradient 16.5 mmHg AV Velocity Time Integral 41.9 cm LVOT Peak Velocity 88.6 cm/s LVOT Peak Gradient 3.1 mmHg LVOT Velocity Time Integral 18.3 cm AV Area Cont Eq vti 1.0 cm AV Area Cont Eq pk 0.7 cm Mitral E Point Velocity 81.5 cm/s Mitral A Point Velocity 51.5 cm/s Mitral E to A Ratio 1.6 LV E' Lateral Velocity 6.0 cm/s Mitral E to LV E' Lateral Ratio 13.5 LV E' Septal Velocity 4.8 cm/s Mitral E to LV E' Septal Ratio 16.8 TR Peak Velocity 278.0 cm/s TR Peak Gradient 30.9 mmHg Right Atrial Pressure 10.0 mmHg Pulmonary Artery Systolic Pressu 40.9 mmHg Right Ventricular Systolic Press 40.9 mmHg PV Peak Velocity 157.0 cm/s PV Peak Gradient 9.9 mmHg FINDINGS LEFT VENTRICLE Normal left ventricular size. Mild concentric left ventricular hypertrophy. The left ventricular systolic function is normal with an estimated ejection fraction in the range of 55-60%. RIGHT VENTRICLE Grossly normal LEFT ATRIUM The left atrial size is mildly dilated. RIGHT ATRIUM The right atrial size is normal. ATRIAL SEPTUM Normal atrial septal thickness AORTA The aortic root and proximal ascending aorta are normal in size on limited imaging. MITRAL VALVE Grossly normal [id number] mitral valve regurgitation. AORTIC VALVE The aortic prosthesis is not well visualized. No aortic prosthesis regurgitation Aortic valve prosthesis with mild stenosis (peak 29, mean 16, JOSE 1.0) TRICUSPID VALVE Grossly normal There is trace tricuspid valve regurgitation. No tricuspid valve stenosis. The estimated pulmonary arterial pressure is 41 mmHg. PULMONARY VALVE The pulmonary valve is not well visualized. VESSELS The inferior vena cava is normal in size. PERICARDIUM No pericardial effusion. Virgil Flores DO (Electronically Signed) Final Date:11 February 2018 18:36
[2018-02-11] MEDS: Lisinopril 20 MG Tablet PO SCH (22:10)
[2018-02-11] MEDS: Pregabalin 75 MG Capsule PO SCH (22:10)
[2018-02-12] MEDS: Chlorhexidine Gluconate 2% 1 Pack (2 Cloths) TOPICAL SCH (03:48)
[2018-02-12] MEDS: Methocarbamol 500 MG Tablet PO SCH ×3 (05:38→21:08)
[2018-02-12 06:07] LABS: INR 1.6 Ratio; Prothrombin Time 16.1 sec (9.8-11.6)
[2018-02-12 06:12] LABS: Baso # (Auto) 0.1 th/mm3 (0.0-0.2); Baso % (Auto) 0.8 % (0.0-2.0); Eos # (Auto) 0.2 th/mm3 (0.0-0.4); Eos % (Auto) 2.8 % (0.0-4.0); Hematocrit 36.9 % (39.0-51.0); Hemoglobin 12.8 gm/dL (13.0-17.0); Lymph # (Auto) 1.1 th/mm3 (1.0-4.8); Lymph % (Auto) 14.7 % (9.0-44.0); Mean Corpuscular HGB Conc 34.7 % (32.0-36.0); Mean Corpuscular Hemoglobin 33.8 pg (27.0-34.0); Mean Corpuscular Volume 97.5 fL (80.0-100.0); Mean Platelet Volume 8.4 fL (7.0-11.0); Mono # (Auto) 0.6 th/mm3 (0.0-0.9); Mono % (Auto) 8.1 % (0.0-8.0); Neut # (Auto) 5.5 th/mm3 (1.8-7.7); Neut % (Auto) 73.6 % (16.0-70.0); Platelet Count 223 th/mm3 (150-450); Red Blood Count 3.78 mil/mm3 (4.50-5.90); Red Cell Distribution Width 14.8 % (11.6-17.2); White Blood Count 7.4 th/mm3 (4.0-11.0)
[2018-02-12 06:24] LABS: Anion Gap 7 meq/L (5-15); Aspartate Aminotransferase 28 U/L (15-37); Blood Urea Nitrogen 26 mg/dL (7-18); Calcium 9.1 mg/dL (8.5-10.1); Carbon Dioxide 26.9 meq/L (21.0-32.0); Chloride 104 meq/L (98-107); Glomerular Filtration Rate Greater Than 89 mL/min (>89); Glucose,Random 91 mg/dL (74-106); Sodium 138 meq/L (136-145)
[2018-02-12 06:25] LABS: Alanine Aminotransferase 25 U/L (12-78); Albumin 3.1 g/dL (3.4-5.0); Phosphorus 3.2 mg/dL (2.5-4.9)
[2018-02-12 06:28] LABS: Alkaline Phosphatase 110 U/L (45-117); Total Protein 6.5 g/dL (6.4-8.2)
[2018-02-12] MEDS: hydrALAZINE HCl Inj 20 MG/ML Vial IV.PUSH PRN ×2 (07:40→14:48)
--- NOTE | 2018-02-12 08:31 | P.PNNEU ---
Subjective Subjective Comments: Received morphine and Ativan. Patient will be restless Active Medications: Active Medications Acetaminophen (Tylenol) 650 mg PO Q6H PRN PRN Reason: FEVER >101F Acetaminophen (Tylenol) 650 mg PO Q6H PRN PRN Reason: PAIN SCALE 1 TO 2 Al Hydroxide/Mg Hydroxide (Milk Of Magnesia Liq) 30 ml PO Q12H PRN PRN Reason: Mild Constipation Amlodipine Besylate (Norvasc) 5 mg PO DAILY [facility] Last Admin: 02/11/18 09:27 Dose: 5 mg Atorvastatin Calcium (Lipitor) 80 mg PO HS [facility] Last Admin: 02/11/18 22:09 Dose: 80 mg Bisacodyl (Dulcolax Supp) 10 mg RECTAL DAILY PRN PRN Reason: SEVERE CONSITIPATION Chlorhexidine Gluconate (Chlorhexidine 2% Cloth) 3 pack TOPICAL DAILY@0400 [facility] Stop: 02/16/18 03:59 Last Admin: 02/12/18 03:48 Dose: Not Given Chlorhexidine Gluconate (Chlorhexidine 2% Cloth) 3 pack TOPICAL DAILY@0400 PRN PRN Reason: Extra cloth needed Stop: 02/16/18 03:59 Clonidine HCl (Catapres) 0.1 mg PO Q6H PRN PRN Reason: HYPERTENSION Enoxaparin Sodium (Lovenox Inj) 100 mg SQ Q12HR [facility] Last Admin: 02/11/18 22:10 Dose: 100 mg Famotidine (Pepcid) 20 mg PO BID [facility] Last Admin: 02/11/18 22:10 Dose: 20 mg Hydralazine HCl (Apresoline Inj) 20 mg IV.PUSH Q4H PRN PRN Reason: SBP>160, DBP>90 Last Admin: 02/12/18 07:40 Dose: 20 mg Nicardipine HCl 25 mg/ Sodium (Chloride) 250 mls @ 50 mls/hr IV.CONT TITRATE PRN; Protocol PRN Reason: Per Protocol Last Titration: 02/11/18 12:00 Dose: Infused Lactulose (Lactulose Liq) 30 ml PO DAILY PRN PRN Reason: SEVERE CONSITIPATION Lisinopril (Prinivil) 20 mg PO HS [facility] Last Admin: 02/11/18 22:10 Dose: 20 mg Lorazepam (Ativan Inj) 1 mg IV.PUSH ONCE PRN PRN Reason: claustrophobia Stop: 02/12/18 20:27 Last Admin: 02/12/18 05:38 Dose: 1 mg Methocarbamol (Robaxin) 1,000 mg PO Q8HR [facility] Last Admin: 02/12/18 05:38 Dose: Not Given Metoprolol Tartrate (Lopressor) 50 mg PO BID [facility] Last Admin: 02/11/18 22:10 Dose: 50 mg Morphine Sulfate (Morphine Inj) 2 mg IV.PUSH Q3H PRN PRN Reason: PAIN 3-5; IF UABLE TO TAKE PO Last Admin: 02/11/18 20:10 Dose: 2 mg Morphine Sulfate (Morphine Inj) 4 mg IV.PUSH Q3H PRN PRN Reason: BREAKTHROUGH PAIN Morphine Sulfate (Morphine Inj) 4 mg IV.PUSH Q1H PRN PRN Reason: Pain Scale 7-10 (Intractable) Last Admin: 02/12/18 02:38 Dose: 4 mg Morphine Sulfate (Morphine Inj) 4 mg IV.PUSH Q3H PRN PRN Reason: PAIN 6-10;IF UNABLE TO TAKE PO Naloxone HCl (Narcan Inj) 0.4 mg IV.PUSH UNSCH PRN PRN Reason: SEE LABEL COMMENTS Ondansetron HCl (Zofran Inj) 4 mg IV.PUSH Q6H PRN PRN Reason: NAUSEA OR VOMITING Last Admin: 02/11/18 20:10 Dose: 4 mg Ondansetron HCl (Zofran Inj) 4 mg IV.PUSH Q6H PRN PRN Reason: NAUSEA OR VOMITING Oxycodone/Acetaminophen (Percocet 10/325 Mg) 1 tab PO Q6H PRN PRN Reason: PAIN SCALE 6 TO 10 Oxycodone/Acetaminophen (Percocet 5/325 Mg) 1 tab PO Q6H PRN PRN Reason: PAIN SCALE 3 TO 5 Last Admin: 02/11/18 03:55 Dose: 1 tab Pt Own (Capecitabine [Xeloda] 1,500 Mg) Tablet 1 each PO BID [facility] Pharmacy Profile Note (Coumadin Consult Pharmacy) 1 each OTHER UNSCH PRN PRN Reason: PHARMACY DOCUMENTATION Pregabalin (Lyrica) 75 mg PO [facility] Last Admin: 02/11/18 22:10 Dose: 75 mg Senna/Docusate Sodium (Marlena-Colace) 1 tab PO BID [facility] Last Admin: 02/11/18 22:10 Dose: 1 tab Sennosides (Senokot) 17.2 mg PO Q12H PRN PRN Reason: Moderate Constipation Sodium Chloride (Ns Flush) 2 ml IV.FLUSH BID [facility] Last Admin: 02/11/18 20:13 Dose: 2 ml Sodium Chloride (Ns Flush) 2 ml IV.FLUSH PRN PRN PRN Reason: FLUSH AFTER USING IV ACCESS Timolol Maleate (Timolol 0.25% Drops) 1 drops EACH EYE Q12HR [facility] Last Admin: 02/11/18 22:10 Dose: 1 drops Tolterodine Tartrate (Detrol La) 4 mg PO DAILY [facility] Last Admin: 02/11/18 09:27 Dose: 4 mg Warfarin Sodium (Coumadin) 3 mg PO DAILY@1600 [facility] Last Admin: 02/11/18 17:53 Dose: 3 mg Allergies/Adverse Reactions: Allergies Allergy/AdvReac Type Severity Reaction Status Date / Time No Known Allergies Allergy Verified 02/01/18 19:28 Review of Systems unobtainable due to mental status Physical Exam Vital signs: Vital Signs 02/11/18 08:31 02/11/18 08:45 02/11/18 09:00 Temperature Pulse Rate 94 H 82 89 Respiratory Rate 23 18 19 Blood Pressure 129/80 149/65 H 138/65 Pulse Oximetry 90 L 91 L 02/11/18 09:15 02/11/18 09:31 02/11/18 09:45 Temperature Pulse Rate 92 H 105 H 88 Respiratory Rate 20 38 H 24 Blood Pressure 134/65 146/62 H 137/63 Pulse Oximetry 77 L 02/11/18 10:00 02/11/18 10:15 02/11/18 10:30 Temperature Pulse Rate 86 83 83 Respiratory Rate 18 26 H 20 Blood Pressure 144/64 H 131/65 144/67 H Pulse Oximetry 02/11/18 10:45 02/11/18 11:00 02/11/18 11:15 Temperature Pulse Rate 82 79 78 Respiratory Rate 27 H 26 H 22 Blood Pressure 141/63 H 143/66 H 142/65 H Pulse Oximetry 94 L 91 L 94 L 02/11/18 11:30 02/11/18 11:45 02/11/18 12:00 Temperature 98.9 F Pulse Rate 71 76 84 Respiratory Rate 19 17 20 Blood Pressure 132/61 124/58 L 148/66 H Pulse Oximetry 93 L 94 L 92 L 02/11/18 12:15 02/11/18 12:31 02/11/18 12:46 Temperature Pulse Rate 74 87 77 Respiratory Rate 34 H 44 H 32 H Blood Pressure 158/67 H 152/60 H 136/60 Pulse Oximetry 92 L 89 L 91 L 02/11/18 13:00 02/11/18 13:15 02/11/18 13:32 Temperature Pulse Rate 81 80 89 Respiratory Rate 24 38 H 34 H Blood Pressure 145/65 H 143/68 H 184/155 H Pulse Oximetry 90 L 91 L 90 L 02/11/18 13:53 02/11/18 14:00 02/11/18 14:31 Temperature Pulse Rate 76 74 72 Respiratory Rate 28 H 19 19 Blood Pressure 114/75 118/68 150/71 H Pulse Oximetry 91 L 92 L 92 L 02/11/18 15:00 02/11/18 15:30 02/11/18 16:00 Temperature 97.5 F L Pulse Rate 72 72 73 Respiratory Rate 24 24 28 H Blood Pressure 125/72 128/95 H 149/87 H Pulse Oximetry 92 L 93 L 93 L 02/11/18 16:31 02/11/18 17:00 02/11/18 17:31 Temperature Pulse Rate 74 77 74 Respiratory Rate 24 23 22 Blood Pressure 154/67 H 156/72 H 150/70 H Pulse Oximetry 94 L 92 L 92 L 02/11/18 18:00 02/11/18 18:30 02/11/18 19:00 Temperature Pulse Rate 76 94 H 113 H Respiratory Rate 18 20 49 H Blood Pressure 141/64 H 154/71 H Pulse Oximetry 94 L 86 L 83 L 02/11/18 19:06 02/11/18 19:30 02/11/18 20:00 Temperature 98.1 F Pulse Rate 104 H 105 H Respiratory Rate 37 H 20 Blood Pressure 141/67 H 150/100 H Pulse Oximetry 93 L 93 L 93 L 02/11/18 20:10 02/11/18 20:15 02/11/18 21:00 Temperature Pulse Rate 106 H Respiratory Rate 27 H 20 22 Blood Pressure 174/74 H Pulse Oximetry 02/11/18 22:00 02/11/18 23:00 02/12/18 00:00 Temperature Pulse Rate 98 H 85 88 Respiratory Rate 20 23 22 Blood Pressure 143/66 H 178/77 H 155/81 H Pulse Oximetry 92 L 91 L 92 L 02/12/18 01:00 02/12/18 02:00 02/12/18 02:38 Temperature Pulse Rate 88 95 H Respiratory Rate 22 22 22 Blood Pressure 178/84 H 155/76 H Pulse Oximetry 96 96 02/12/18 03:00 02/12/18 03:48 02/12/18 03:59 Temperature Pulse Rate 90 Respiratory Rate 23 22 Blood Pressure 170/111 H Pulse Oximetry 90 L 93 L 02/12/18 04:00 02/12/18 04:17 02/12/18 04:30 Temperature Pulse Rate 95 H 92 H 86 Respiratory Rate 21 18 20 Blood Pressure 184/80 H 178/86 H 167/80 H Pulse Oximetry 96 91 L 91 L 02/12/18 05:00 02/12/18 05:39 02/12/18 06:01 Temperature Pulse Rate 97 H 105 H 102 H Respiratory Rate 21 23 21 Blood Pressure 162/104 H 166/79 H 153/90 H Pulse Oximetry 93 L 93 L 93 L 02/12/18 06:20 Temperature Pulse Rate 95 H Respiratory Rate 17 Blood Pressure Pulse Oximetry 93 L Intake & Output 02/11/18 02/12/18 02/12/18 18:59 06:59 18:59 Intake Total 697 / 697 0 / 0 Balance 697 / 697 0 / 0 Weight 94.5 kg Intake: IV 372 / 372 Cardene Inj 25 MG In NS Inj 240 372 / 372 ML @ 5 MG/HR 50 mls/hr IV.CONT TITRATE PRN Rx#:[id number] Oral 325 / 325 0 / 0 Other: # Incontinent Voids 3 5 Narrative: GENERAL: in NAD, SKIN: Warm and dry. HEAD: Atraumatic. Normocephalic. EYES: Pupils equal and round. ENT: No nasal bleeding or discharge. NECK: Trachea midline. No JVD. CARDIOVASCULAR: Regular rate and rhythm. RESPIRATORY: No accessory muscle use. GASTROINTESTINAL: Abdomen soft, non-tender, nondistended. MUSCULOSKELETAL: Mild hammertoes extremities without clubbing, cyanosis, or edema. NEUROLOGICAL: Somnolent, more difficult to arouse not following nonverbal, no facial asymmetry, challenging pupillary exam, eomi, VFF, No drift, all 4 extremities and restraints, reflexes 1-2+ trace at the ankle plantarflex her no clonus elicited, reduce pinprick up to the level of the knees also reduced in the hands up to the wrist stocking glove distribution, gait not assessed secondary fall risk PSYCHIATRIC: Calm - Constitutional no acute distress - Routine HEENT Exam Head: Present: normocephalic Objective Laboratory Results - last 24 hr 02/11/18 02/11/18 02/11/18 03:39 03:39 03:39 WBC RBC Hgb Hct MCV MCH MCHC RDW Plt Count MPV Neut % (Auto) Lymph % (Auto) [place] % (Auto) Eos % (Auto) Baso % (Auto) Neut # (Auto) Lymph # (Auto) [place] # (Auto) Eos # (Auto) Baso # (Auto) WBC Differential Differential Comment PT INR Sodium Potassium Chloride Carbon Dioxide Anion Gap BUN Creatinine Estimated GFR Random Glucose Hemoglobin A1c 5.3 Calcium Phosphorus Magnesium Total Bilirubin AST ALT Alkaline Phosphatase Total Protein Albumin Prostate Specific Ag 4.37 H Vitamin B12 273 02/12/18 02/12/18 02/12/18 05:14 05:14 05:14 WBC 7.4 RBC 3.78 L Hgb 12.8 L Hct 36.9 L MCV 97.5 MCH 33.8 MCHC 34.7 RDW 14.8 Plt Count 223 MPV 8.4 Neut % (Auto) 73.6 H Lymph % (Auto) 14.7 [place] % (Auto) 8.1 H Eos % (Auto) 2.8 Baso % (Auto) 0.8 Neut # (Auto) 5.5 Lymph # (Auto) 1.1 [place] # (Auto) 0.6 Eos # (Auto) 0.2 Baso # (Auto) 0.1 WBC Differential . 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 Likely related to morphine and Ativan Let Seroquel twice daily as needed Low B12 level. Check methylmalonic acid MRI brain and C-spine to exclude any other lesion; pending EEG; showing encephalopathy Neurosurgical evaluation of the lumbar spinal stenosis; severe lumbar central canal stenosis probable cause of symptoms in addition to bony metastatic disease Neurosurgery suggesting radiation oncology Therapy Pain control Follow exam Discussed with RN Can be moved to fifth floor with telemetry [facility] from neurologic standpoint
[2018-02-12] MEDS ORDERED: QUEtiapine 25 MG Tablet PO PRN (09:00)
[2018-02-12] MEDS: amLODIPine 5 MG Tablet PO SCH (09:24)
[2018-02-12] MEDS: Metoprolol Tartrate 50 MG Tablet PO SCH ×2 (09:24→21:08)
[2018-02-12] MEDS: Enoxaparin Inj 100 MG/ML Syringe SQ SCH ×2 (09:24→21:08)
[2018-02-12] MEDS: Senna/Docusate Sodium 8.6/50 MG Tablet PO SCH ×2 (09:24→21:08)
[2018-02-12] MEDS: Timolol 0.25% Drops 5 ML Bottle EACH EYE SCH ×2 (09:24→21:08)
[2018-02-12] MEDS: Tolterodine Tartrate LA 4 MG Capsule PO SCH (09:24)
[2018-02-12] MEDS: Famotidine 20 MG Tablet PO SCH ×2 (09:24→21:08)
--- NOTE | 2018-02-12 10:09 | P.PNONC ---
Subjective Interval history: Patient lying in bed with his eyes closed, appears restless. He continues in four-point soft restraints. Patient does not answer questions verbally, he will squeeze my hands. He is moving both legs. Objective Vital Signs/Intake & Output: Vital Signs 02/11/18 10:15 02/11/18 10:30 02/11/18 10:45 Temperature Pulse Rate 83 83 82 Respiratory Rate 26 H 20 27 H Blood Pressure 131/65 144/67 H 141/63 H Pulse Oximetry 94 L 02/11/18 11:00 02/11/18 11:15 02/11/18 11:30 Temperature Pulse Rate 79 78 71 Respiratory Rate 26 H 22 19 Blood Pressure 143/66 H 142/65 H 132/61 Pulse Oximetry 91 L 94 L 93 L 02/11/18 11:45 02/11/18 12:00 02/11/18 12:15 Temperature 98.9 F Pulse Rate 76 84 74 Respiratory Rate 17 20 34 H Blood Pressure 124/58 L 148/66 H 158/67 H Pulse Oximetry 94 L 92 L 92 L 02/11/18 12:31 02/11/18 12:46 02/11/18 13:00 Temperature Pulse Rate 87 77 81 Respiratory Rate 44 H 32 H 24 Blood Pressure 152/60 H 136/60 145/65 H Pulse Oximetry 89 L 91 L 90 L 02/11/18 13:15 02/11/18 13:32 02/11/18 13:53 Temperature Pulse Rate 80 89 76 Respiratory Rate 38 H 34 H 28 H Blood Pressure 143/68 H 184/155 H 114/75 Pulse Oximetry 91 L 90 L 91 L 02/11/18 14:00 02/11/18 14:31 02/11/18 15:00 Temperature Pulse Rate 74 72 72 Respiratory Rate 19 19 24 Blood Pressure 118/68 150/71 H 125/72 Pulse Oximetry 92 L 92 L 92 L 02/11/18 15:30 02/11/18 16:00 02/11/18 16:31 Temperature 97.5 F L Pulse Rate 72 73 74 Respiratory Rate 24 28 H 24 Blood Pressure 128/95 H 149/87 H 154/67 H Pulse Oximetry 93 L 93 L 94 L 02/11/18 17:00 02/11/18 17:31 02/11/18 18:00 Temperature Pulse Rate 77 74 76 Respiratory Rate 23 22 18 Blood Pressure 156/72 H 150/70 H 141/64 H Pulse Oximetry 92 L 92 L 94 L 02/11/18 18:30 02/11/18 19:00 02/11/18 19:06 Temperature Pulse Rate 94 H 113 H 104 H Respiratory Rate 20 49 H 37 H Blood Pressure 154/71 H 141/67 H Pulse Oximetry 86 L 83 L 93 L 02/11/18 19:30 02/11/18 20:00 02/11/18 20:10 Temperature 98.1 F Pulse Rate 105 H Respiratory Rate 20 27 H Blood Pressure 150/100 H Pulse Oximetry 93 L 93 L 02/11/18 20:15 02/11/18 21:00 02/11/18 22:00 Temperature Pulse Rate 106 H 98 H Respiratory Rate 20 22 20 Blood Pressure 174/74 H 143/66 H Pulse Oximetry 92 L 02/11/18 23:00 02/12/18 00:00 02/12/18 01:00 Temperature Pulse Rate 85 88 88 Respiratory Rate 23 22 22 Blood Pressure 178/77 H 155/81 H 178/84 H Pulse Oximetry 91 L 92 L 96 02/12/18 02:00 02/12/18 02:38 02/12/18 03:00 Temperature Pulse Rate 95 H 90 Respiratory Rate 22 22 23 Blood Pressure 155/76 H 170/111 H Pulse Oximetry 96 90 L 02/12/18 03:48 02/12/18 03:59 02/12/18 04:00 Temperature Pulse Rate 95 H Respiratory Rate 22 21 Blood Pressure 184/80 H Pulse Oximetry 93 L 96 02/12/18 04:17 02/12/18 04:30 02/12/18 05:00 Temperature Pulse Rate 92 H 86 97 H Respiratory Rate 18 20 21 Blood Pressure 178/86 H 167/80 H 162/104 H Pulse Oximetry 91 L 91 L 93 L 02/12/18 05:39 02/12/18 06:01 02/12/18 06:20 Temperature Pulse Rate 105 H 102 H 95 H Respiratory Rate 23 21 17 Blood Pressure 166/79 H 153/90 H Pulse Oximetry 93 L 93 L 93 L 02/12/18 09:05 Temperature Pulse Rate Respiratory Rate Blood Pressure Pulse Oximetry 94 L Intake & Output 02/11/18 02/12/18 02/12/18 18:59 06:59 18:59 Intake Total 697 / 697 0 / 0 Balance 697 / 697 0 / 0 Weight 94.5 kg Intake: IV 372 / 372 Cardene Inj 25 MG In NS Inj 240 372 / 372 ML @ 5 MG/HR 50 mls/hr IV.CONT TITRATE PRN Rx#:[id number] Oral 325 / 325 0 / 0 Other: # Incontinent Voids 3 5 Result Diagrams: 02/12/18 05:14 02/12/18 05:14 Laboratory Results: Laboratory Results - last 24 hr 02/11/18 02/11/18 02/11/18 03:39 03:39 03:39 WBC RBC Hgb Hct MCV MCH MCHC RDW Plt Count MPV Neut % (Auto) Lymph % (Auto) [place] % (Auto) Eos % (Auto) Baso % (Auto) Neut # (Auto) Lymph # (Auto) [place] # (Auto) Eos # (Auto) Baso # (Auto) WBC Differential Differential Comment PT INR Sodium Potassium Chloride Carbon Dioxide Anion Gap BUN Creatinine Estimated GFR Random Glucose Hemoglobin A1c 5.3 Calcium Phosphorus Magnesium Total Bilirubin AST ALT Alkaline Phosphatase Total Protein Albumin Prostate Specific Ag 4.37 H Vitamin B12 273 02/12/18 02/12/18 02/12/18 05:14 05:14 05:14 WBC 7.4 RBC 3.78 L Hgb 12.8 L Hct 36.9 L MCV 97.5 MCH 33.8 MCHC 34.7 RDW 14.8 Plt Count 223 MPV 8.4 Neut % (Auto) 73.6 H Lymph % (Auto) 14.7 [place] % (Auto) 8.1 H Eos % (Auto) 2.8 Baso % (Auto) 0.8 Neut # (Auto) 5.5 Lymph # (Auto) 1.1 [place] # (Auto) 0.6 Eos # (Auto) 0.2 Baso # (Auto) 0.1 WBC Differential . Differential Comment Auto diff final PT 16.1 H INR 1.6 Sodium 138 Potassium 4.0 Chloride 104 Carbon Dioxide 26.9 Anion Gap 7 BUN 26 H Creatinine 0.66 Estimated GFR Greater than 89 Random Glucose 91 Hemoglobin A1c Calcium 9.1 Phosphorus 3.2 Magnesium 2.0 Total Bilirubin 1.5 H AST 28 ALT 25 Alkaline Phosphatase 110 Total Protein 6.5 Albumin 3.1 L Prostate Specific Ag Vitamin B12 Medications: Active Medications Generic Name Dose Route Start Last Admin Trade Name Freq PRN Reason Stop Dose Admin Amlodipine Besylate 5 mg 02/10/18 17:15 02/12/18 09:24 Norvasc PO 5 mg DAILY [facility] Administration Atorvastatin Calcium 80 mg 02/10/18 21:00 02/11/18 22:09 Lipitor PO 80 mg HS [facility] Administration Chlorhexidine Gluconate 3 pack 02/11/18 04:00 02/12/18 03:48 Chlorhexidine 2% Cloth TOPICAL 02/16/18 03:59 Not Given DAILY@0400 [facility] Enoxaparin Sodium 100 mg 02/10/18 17:00 02/12/18 09:24 Lovenox Inj SQ 100 mg Q12HR [facility] Administration Famotidine 20 mg 02/10/18 21:00 02/12/18 09:24 Pepcid PO 20 mg BID [facility] Administration Hydralazine HCl 20 mg 02/10/18 16:32 02/12/18 07:40 Apresoline Inj IV.PUSH 20 mg Q4H PRN Administration SBP>160, DBP>90 Nicardipine HCl 25 mg/ Sodium 250 mls @ 50 mls/hr 02/10/18 14:28 02/11/18 12: 00 Chloride IV.CONT Infused TITRATE PRN Titration Per Protocol Protocol 5 MG/HR Lisinopril 20 mg 02/10/18 21:00 02/11/18 22:10 Prinivil PO 20 mg HS [facility] Administration Lorazepam 1 mg 02/11/18 20:28 02/12/18 05:38 Ativan Inj IV.PUSH 02/12/18 20:27 1 mg ONCE PRN Administration claustrophobia Methocarbamol 1,000 mg 02/10/18 22:00 02/12/18 05:38 Robaxin PO Not Given Q8HR [facility] Metoprolol Tartrate 50 mg 02/10/18 21:00 02/12/18 09:24 Lopressor PO 50 mg BID [facility] Administration Morphine Sulfate 2 mg 02/10/18 16:23 02/11/18 20:10 Morphine Inj IV.PUSH 2 mg Q3H PRN Administration PAIN 3-5; IF UABLE TO TAKE PO Morphine Sulfate 4 mg 02/10/18 16:23 02/12/18 02:38 Morphine Inj IV.PUSH 4 mg Q1H PRN Administration Pain Scale 7-10 (Intractable) Ondansetron HCl 4 mg 02/10/18 16:23 02/11/18 20:10 Zofran Inj IV.PUSH 4 mg Q6H PRN Administration NAUSEA OR VOMITING Oxycodone/Acetaminophen 1 tab 02/10/18 16:23 02/11/18 03:55 Percocet 5/325 Mg PO 1 tab Q6H PRN Administration PAIN SCALE 3 TO 5 Pregabalin 75 mg 02/10/18 21:00 02/11/18 22:10 Lyrica PO 75 mg HS [facility] Administration Senna/Docusate Sodium 1 tab 02/10/18 21:00 02/12/18 09:24 Marlena-Colace PO 1 tab BID [facility] Administration Sodium Chloride 2 ml 02/10/18 21:00 02/12/18 09:24 Ns Flush IV.FLUSH 2 ml BID [facility] Administration Timolol Maleate 1 drops 02/10/18 21:00 02/12/18 09:24 Timolol 0.25% Drops EACH EYE 1 drops Q12HR [facility] Administration Tolterodine Tartrate 4 mg 02/11/18 09:00 02/12/18 09:24 Detrol La PO 4 mg DAILY [facility] Administration Warfarin Sodium 3 mg 02/11/18 16:00 02/11/18 17:53 Coumadin PO 3 mg DAILY@1600 [facility] Administration Objective Remarks: GENERAL: Elderly male patient, restless, in soft restraints. SKIN: Pale, warm and dry. HEAD: Normocephalic. EYES: Yellow crusted drainage left eyelid. NECK: Supple, trachea midline. No JVD or lymphadenopathy. CARDIOVASCULAR: Regular rate and rhythm without murmurs. RESPIRATORY: Breath sounds distant, equal bilaterally. No accessory muscle use. GASTROINTESTINAL: Abdomen soft, non-tender, nondistended. EXTREMITIES: No cyanosis, or edema. MUSCULOSKELETAL: Adequate muscle tone. NEUROLOGICAL: Follows simple commands. Does not answer questions. Moves all extremities. Assessment/Plan - Plan Mr Quiroz is an 82-year-old gentleman with colon cancer with multiple relapses. He has been on palliative Avastin and FOLFIRI chemotherapy since June 2017, his last treatment was 01/15/2018. He has most recently had some mental status changes and severe back pain. Recommendations: 1. Colon cancer with multiple relapses. His last chemotherapy treatment was on 01/15/2018. 2. Weakness of both lower legs and severe back pain. 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 There is a mild pathologic compression fraction that appears acute or subacute. A benign appearing mild compression fraction of T12. Considerable edema of the T12/L1 disc. Neurosurgery recommended no surgical interventions, radiation only. Consult placed to radiation oncology. 3. Altered mental status, neurology is following. EEG consistent with diffuse encephalopathy. 4. Continue supportive care. - Attending Statement The exam, history, and the medical decision-making described in the above note were completed with the assistance of the mid-level provider. I reviewed and agree with the findings presented. I attest that I had a [id number] encounter with the patient on the same day, and personally performed and documented my assessment and findings in the medical record. Patient has four-point restraint He is being sedated for agitation Unable to give any answers to the questions Radiation oncology consulted. Their input is pending Patient may need spinal tap to evaluate for carcinomatous meningitis. We will defer this to neurologist
--- NOTE | 2018-02-12 14:40 | P.PN ---
Subjective Interval history: The patient is in bed is not talking at baseline. Does not appear in acute distress at this time. Vital signs fairly stable. Is saturating well on room air at this time. Blood pressure was noted elevated earlier today. Family at bedside discussed at length. Family decided for DNR CODE STATUS and considers talking with palliative care for further goals of care. The patient is noted not eating. Family is concerned. Will consult dietitian. Change diet to regular diet and add Ensure. Add Megace. Physical Exam Vital signs: Vital Signs 02/11/18 15:00 02/11/18 15:30 02/11/18 16:00 Temperature 97.5 F L Pulse Rate 72 72 73 Respiratory Rate 24 24 28 H Blood Pressure 125/72 128/95 H 149/87 H Pulse Oximetry 92 L 93 L 93 L 02/11/18 16:31 02/11/18 17:00 02/11/18 17:31 Temperature Pulse Rate 74 77 74 Respiratory Rate 24 23 22 Blood Pressure 154/67 H 156/72 H 150/70 H Pulse Oximetry 94 L 92 L 92 L 02/11/18 18:00 02/11/18 18:30 02/11/18 19:00 Temperature Pulse Rate 76 94 H 113 H Respiratory Rate 18 20 49 H Blood Pressure 141/64 H 154/71 H Pulse Oximetry 94 L 86 L 83 L 02/11/18 19:06 02/11/18 19:30 02/11/18 20:00 Temperature 98.1 F Pulse Rate 104 H 105 H Respiratory Rate 37 H 20 Blood Pressure 141/67 H 150/100 H Pulse Oximetry 93 L 93 L 93 L 02/11/18 20:10 02/11/18 20:15 02/11/18 21:00 Temperature Pulse Rate 106 H Respiratory Rate 27 H 20 22 Blood Pressure 174/74 H Pulse Oximetry 02/11/18 22:00 02/11/18 23:00 02/12/18 00:00 Temperature Pulse Rate 98 H 85 88 Respiratory Rate 20 23 22 Blood Pressure 143/66 H 178/77 H 155/81 H Pulse Oximetry 92 L 91 L 92 L 02/12/18 01:00 02/12/18 02:00 02/12/18 02:38 Temperature Pulse Rate 88 95 H Respiratory Rate 22 22 22 Blood Pressure 178/84 H 155/76 H Pulse Oximetry 96 96 02/12/18 03:00 12/05/18 03:48 02/12/18 03:59 Temperature Pulse Rate 90 Respiratory Rate 23 22 Blood Pressure 170/111 H Pulse Oximetry 90 L 93 L 02/12/18 04:00 02/12/18 04:17 02/12/18 04:30 Temperature Pulse Rate 95 H 92 H 86 Respiratory Rate 21 18 20 Blood Pressure 184/80 H 178/86 H 167/80 H Pulse Oximetry 96 91 L 91 L 02/12/18 05:00 02/12/18 05:39 02/12/18 06:01 Temperature Pulse Rate 97 H 105 H 102 H Respiratory Rate 21 23 21 Blood Pressure 162/104 H 166/79 H 153/90 H Pulse Oximetry 93 L 93 L 93 L 02/12/18 06:20 02/12/18 06:30 02/12/18 06:32 Temperature Pulse Rate 95 H 97 H 95 H Respiratory Rate 17 21 21 Blood Pressure 152/105 H 143/89 H Pulse Oximetry 93 L 93 L 94 L 02/12/18 07:12 02/12/18 07:31 02/12/18 07:36 Temperature Pulse Rate 98 H 96 H 102 H Respiratory Rate 21 22 21 Blood Pressure 174/79 H 205/79 H 210/91 H Pulse Oximetry 94 L 94 L 94 L 02/12/18 08:00 02/12/18 08:04 02/12/18 08:31 Temperature 97.6 F 97.6 F Pulse Rate 101 H 99 H 99 H Respiratory Rate 22 22 24 Blood Pressure 137/61 137/61 213/111 H Pulse Oximetry 94 L 94 L 94 L 02/12/18 08:43 02/12/18 09:00 02/12/18 09:05 Temperature Pulse Rate 99 H 107 H Respiratory Rate 20 23 Blood Pressure 162/84 H 170/91 H Pulse Oximetry 94 L 94 L 94 L 02/12/18 09:31 02/12/18 10:00 02/12/18 10:01 Temperature Pulse Rate 108 H 98 H 98 H Respiratory Rate 24 24 24 Blood Pressure 152/73 H 93/67 L 93/67 L Pulse Oximetry 94 L 97 97 02/12/18 10:31 02/12/18 10:41 02/12/18 11:01 Temperature Pulse Rate 98 H 101 H 100 H Respiratory Rate 21 26 H 19 Blood Pressure 143/57 H 152/75 H Pulse Oximetry 96 96 96 02/12/18 11:31 02/12/18 12:00 02/12/18 12:01 Temperature 97.5 F L 97.5 F L Pulse Rate 97 H 96 H 96 H Respiratory Rate 20 20 18 Blood Pressure 156/74 H 126/79 126/79 Pulse Oximetry 96 96 96 02/12/18 12:59 02/12/18 13:00 02/12/18 13:30 Temperature Pulse Rate 110 H 109 H 94 H Respiratory Rate 24 19 23 Blood Pressure 128/81 142/81 H 154/109 H Pulse Oximetry 95 95 95 02/12/18 13:34 02/12/18 13:49 Temperature Pulse Rate 100 H 91 H Respiratory Rate 25 H 24 Blood Pressure 177/112 H Pulse Oximetry 95 95 Intake & Output 02/11/18 02/12/18 02/12/18 18:59 06:59 18:59 Intake Total 697 / 697 0 / 0 Balance 697 / 697 0 / 0 Weight 94.5 kg Intake: IV 372 / 372 Cardene Inj 25 MG In NS Inj 240 372 / 372 ML @ 5 MG/HR 50 mls/hr IV.CONT TITRATE PRN Rx#:[id number] Oral 325 / 325 0 / 0 Other: # Incontinent Voids 3 5 Narrative: GENERAL: 82-year-old male in bed, nonverbal, however he is noted talking with the nurse today. He is lethargic. He however does not appear in acute distress at this time. SKIN: Pale. Warm and dry. HEAD: Atraumatic. Normocephalic. EYES: Pupils equal and round. ENT: No nasal bleeding or discharge. NECK: Trachea midline. No JVD. CARDIOVASCULAR: Regular rate and rhythm. RESPIRATORY: No accessory muscle use. GASTROINTESTINAL: Abdomen soft, non-tender, nondistended. MUSCULOSKELETAL: Mild hammertoes extremities without clubbing, cyanosis, or edema. NEUROLOGICAL: Lethargic, not following any commands. He is noted to move his arms and legs. He is in restraints at this time. Results - Labs CBC & Chem 7: 02/12/18 05:14 02/12/18 05:14 Laboratory Results - last 24 hr 02/11/18 02/11/18 02/12/18 03:39 03:39 05:14 WBC RBC Hgb Hct MCV MCH MCHC RDW Plt Count MPV Neut % (Auto) Lymph % (Auto) [place] % (Auto) Eos % (Auto) Baso % (Auto) Neut # (Auto) Lymph # (Auto) [place] # (Auto) Eos # (Auto) Baso # (Auto) WBC Differential Differential Comment PT 16.1 H INR 1.6 Sodium Potassium Chloride Carbon Dioxide Anion Gap BUN Creatinine Estimated GFR Random Glucose Hemoglobin A1c 5.3 Calcium Phosphorus Magnesium Total Bilirubin AST ALT Alkaline Phosphatase Total Protein Albumin Prostate Specific Ag 4.37 H 02/12/18 02/12/18 05:14 05:14 WBC 7.4 RBC 3.78 L Hgb 12.8 L Hct 36.9 L MCV 97.5 MCH 33.8 MCHC 34.7 RDW 14.8 Plt Count 223 MPV 8.4 Neut % (Auto) 73.6 H Lymph % (Auto) 14.7 [place] % (Auto) 8.1 H Eos % (Auto) 2.8 Baso % (Auto) 0.8 Neut # (Auto) 5.5 Lymph # (Auto) 1.1 [place] # (Auto) 0.6 Eos # (Auto) 0.2 Baso # (Auto) 0.1 WBC Differential . Differential Comment Auto diff final PT INR Sodium 138 Potassium 4.0 Chloride 104 Carbon Dioxide 26.9 Anion Gap 7 BUN 26 H Creatinine 0.66 Estimated GFR Greater than 89 Random Glucose 91 Hemoglobin A1c Calcium 9.1 Phosphorus 3.2 Magnesium 2.0 Total Bilirubin 1.5 H AST 28 ALT 25 Alkaline Phosphatase 110 Total Protein 6.5 Albumin 3.1 L Prostate Specific Ag Assessment and Plan - Plan Uncontrolled malignant hypertension -Place in the ICU -Was on Cardene drip, weaned off -Resume home medications -Pain control -PRN blood pressure meds with hydralazine and Catapres -Add Norvasc 5 mg p.o. daily Back pain status post fall -Pain control with p.o. 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 BANGURA -Consult neurosurgery, doesn't recommend any surgical intervention at this time. Consult radiation oncology for evaluation -PT and OT to eval and treat -Continue on Xeloda Consult palliative care for goals of care. Protein calorie malnutrition moderate to severe due to decreased p.o. intake. Change diet to regular diet. Add Megace, add Ensure dietary supplement. Consult dietitian. Do calorie count. 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 Discussed Condition With: RN AND PT AND FAMILY Discharge Planning: Pending improvement. Palliative care consulted for goals of care. Discussed with the patient, ICU nurse, family
--- NOTE | 2018-02-12 14:47 | P.CON ---
History of Present Illness Service: Radiation oncology Consult date: 02/12/18 Requesting Physician: Luis Terrazas Reason for Consult: Metastatic colon carcinoma to the T-spine Primary Care Provider: Reyna Pastor MD Chief Complaint: BACK PAIN/INJURY History of Present Illness: 81-year-old white male with the diagnosis of metastatic colon carcinoma. Patient was treated to L4 for a total dose of 2400 cGy in SB RT. Treatments were completed on 06/28/2017. Patient has now been admitted with the complaints of upper back pain and mental confusion. Review of Systems unobtainable due to mental condition, unobtainable due to mental status PMFSH - History History Provided By: Patient - Medical History Medical History: Medical History (Last Reviewed 02/11/18 @ 07:45 by Luis Fernando Plata) History of high blood pressure History of high cholesterol Hx of balanitis Hx of malignant neoplasm of colon - Surgical History Surgical History: Surgical History (Last Reviewed 02/11/18 @ 07:45 by Luis Fernando Plata) Hx of artificial heart valve replacement Hx of cholecystectomy Hx of colonoscopy Hx of heart bypass surgery - Family History Family History: Family History (Last Updated 02/10/18 @ 16:57 by Claude Taylor DO) Other Family history of hypertension - Tobacco History Second Hand Smoke Exposure: No Tobacco Use In Past 30 Days: No Smoking Status: Never smoker - Alcohol History How Often Do You Have a Drink Containing Alcohol: 4 or more times a week - Substance Use History Substance History: No History of Abuse - Travel History History of Recent Travel: No Recent Travel in the [place] Within the Last 8 Weeks: No Recent Travel Out of the Country Within the Last 8 Weeks: No - Immunization History Tetanus Immunization: <5 Years Hx Influenza Vaccine This Season: No Medications and Allergies Active Medications: Active Medications Acetaminophen (Tylenol) 650 mg PO Q6H PRN PRN Reason: FEVER >101F Acetaminophen (Tylenol) 650 mg PO Q6H PRN PRN Reason: PAIN SCALE 1 TO 2 Al Hydroxide/Mg Hydroxide (Milk Of Magnyoselin Liq) 30 ml PO Q12H PRN PRN Reason: Mild Constipation Amlodipine Besylate (Norvasc) 5 mg PO DAILY [facility] Last Admin: 02/12/18 09:24 Dose: 5 mg Atorvastatin Calcium (Lipitor) 80 mg PO HS [facility] Last Admin: 02/11/18 22:09 Dose: 80 mg Bisacodyl (Dulcolax Supp) 10 mg RECTAL DAILY PRN PRN Reason: SEVERE CONSITIPATION Chlorhexidine Gluconate (Chlorhexidine 2% Cloth) 3 pack TOPICAL DAILY@0400 [facility] Stop: 02/16/18 03:59 Last Admin: 02/12/18 03:48 Dose: Not Given Chlorhexidine Gluconate (Chlorhexidine 2% Cloth) 3 pack TOPICAL DAILY@0400 PRN PRN Reason: Extra cloth needed Stop: 02/16/18 03:59 Clonidine HCl (Catapres) 0.1 mg PO Q6H PRN PRN Reason: HYPERTENSION Enoxaparin Sodium (Lovenox Inj) 100 mg SQ Q12HR [facility] Last Admin: 02/12/18 09:24 Dose: 100 mg Famotidine (Pepcid) 20 mg PO BID [facility] Last Admin: 02/12/18 09:24 Dose: 20 mg Hydralazine HCl (Apresoline Inj) 20 mg IV.PUSH Q4H PRN PRN Reason: SBP>160, DBP>90 Last Admin: 02/12/18 07:40 Dose: 20 mg Nicardipine HCl 25 mg/ Sodium (Chloride) 250 mls @ 50 mls/hr IV.CONT TITRATE PRN; Protocol PRN Reason: Per Protocol Last Titration: 02/11/18 12:00 Dose: Infused Lactulose (Lactulose Liq) 30 ml PO DAILY PRN PRN Reason: SEVERE CONSITIPATION Lisinopril (Prinivil) 20 mg PO HS [facility] Last Admin: 02/11/18 22:10 Dose: 20 mg Lorazepam (Ativan Inj) 1 mg IV.PUSH ONCE PRN PRN Reason: claustrophobia Stop: 02/12/18 20:27 Last Admin: 02/12/18 05:38 Dose: 1 mg Methocarbamol (Robaxin) 1,000 mg PO Q8HR [facility] Last Admin: 02/12/18 05:38 Dose: Not Given Metoprolol Tartrate (Lopressor) 50 mg PO BID [facility] Last Admin: 02/12/18 09:24 Dose: 50 mg Morphine Sulfate (Morphine Inj) 2 mg IV.PUSH Q3H PRN PRN Reason: PAIN 3-5; IF UABLE TO TAKE PO Last Admin: 02/11/18 20:10 Dose: 2 mg Morphine Sulfate (Morphine Inj) 4 mg IV.PUSH Q3H PRN PRN Reason: BREAKTHROUGH PAIN Morphine Sulfate (Morphine Inj) 4 mg IV.PUSH Q1H PRN PRN Reason: Pain Scale 7-10 (Intractable) Last Admin: 02/12/18 02:38 Dose: 4 mg Morphine Sulfate (Morphine Inj) 4 mg IV.PUSH Q3H PRN PRN Reason: PAIN 6-10;IF UNABLE TO TAKE PO Naloxone HCl (Narcan Inj) 0.4 mg IV.PUSH UNSCH PRN PRN Reason: SEE LABEL COMMENTS Ondansetron HCl (Zofran Inj) 4 mg IV.PUSH Q6H PRN PRN Reason: NAUSEA OR VOMITING Last Admin: 02/11/18 20:10 Dose: 4 mg Ondansetron HCl (Zofran Inj) 4 mg IV.PUSH Q6H PRN PRN Reason: NAUSEA OR VOMITING Oxycodone/Acetaminophen (Percocet 10/325 Mg) 1 tab PO Q6H PRN PRN Reason: PAIN SCALE 6 TO 10 Oxycodone/Acetaminophen (Percocet 5/325 Mg) 1 tab PO Q6H PRN PRN Reason: PAIN SCALE 3 TO 5 Last Admin: 02/11/18 03:55 Dose: 1 tab Pt Own (Capecitabine [Xeloda] 1,500 Mg) Tablet 1 each PO BID [facility] Pharmacy Profile Note (Coumadin Consult Pharmacy) 1 each OTHER UNSCH PRN PRN Reason: PHARMACY DOCUMENTATION Pregabalin (Lyrica) 75 mg PO HS [facility] Last Admin: 02/11/18 22:10 Dose: 75 mg Quetiapine Fumarate (Seroquel) 25 mg PO BID PRN PRN Reason: AGITATION Senna/Docusate Sodium (Marlena-Colace) 1 tab PO BID [facility] Last Admin: 02/12/18 09:24 Dose: 1 tab Sennosides (Senokot) 17.2 mg PO Q12H PRN PRN Reason: Moderate Constipation Sodium Chloride (Ns Flush) 2 ml IV.FLUSH BID [facility] Last Admin: 02/12/18 09:24 Dose: 2 ml Sodium Chloride (Ns Flush) 2 ml IV.FLUSH PRN PRN PRN Reason: FLUSH AFTER USING IV ACCESS Timolol Maleate (Timolol 0.25% Drops) 1 drops EACH EYE Q12HR [facility] Last Admin: 02/12/18 09:24 Dose: 1 drops Tolterodine Tartrate (Detrol La) 4 mg PO DAILY [facility] Last Admin: 02/12/18 09:24 Dose: 4 mg Warfarin Sodium (Coumadin) 3 mg PO DAILY@1600 [facility] Last Admin: 02/11/18 17:53 Dose: 3 mg Allergies Allergy/AdvReac Type Severity Reaction Status Date / Time No Known Allergies Allergy Verified 02/01/18 19:28 Home Medications Medication Instructions Recorded Confirmed Type atorvastatin 80 mg PO QPM 02/01/18 02/10/18 History leuprolide (3 month) [Eligard (3 22.5 mg SUBCUT [id number] 02/01/18 02/10/18 History month)] lisinopril 20 mg PO QPM 02/01/18 02/10/18 History metoprolol tartrate 50 mg PO BID 02/01/18 02/10/18 History oxybutynin chloride 15 mg PO QPM 02/01/18 02/10/18 History pregabalin [Lyrica] 75 mg PO HS 02/01/18 02/10/18 History capecitabine [Xeloda] 1,500 mg PO Q12H 02/10/18 02/10/18 History timolol maleate [Timoptic] 1 drp EACH EYE Q12HR 02/10/18 02/10/18 History warfarin [Coumadin] 3 mg PO DAILY 02/10/18 02/10/18 History Physical Exam Vital signs: Vital Signs 02/11/18 15:00 02/11/18 15:30 02/11/18 16:00 Temperature 97.5 F L Pulse Rate 72 72 73 Respiratory Rate 24 24 28 H Blood Pressure 125/72 128/95 H 149/87 H Pulse Oximetry 92 L 93 L 93 L 02/11/18 16:31 02/11/18 17:00 02/11/18 17:31 Temperature Pulse Rate 74 77 74 Respiratory Rate 24 23 22 Blood Pressure 154/67 H 156/72 H 150/70 H Pulse Oximetry 94 L 92 L 92 L 02/11/18 18:00 02/11/18 18:30 02/11/18 19:00 Temperature Pulse Rate 76 94 H 113 H Respiratory Rate 18 20 49 H Blood Pressure 141/64 H 154/71 H Pulse Oximetry 94 L 86 L 83 L 02/11/18 19:06 02/11/18 19:30 02/11/18 20:00 Temperature 98.1 F Pulse Rate 104 H 105 H Respiratory Rate 37 H 20 Blood Pressure 141/67 H 150/100 H Pulse Oximetry 93 L 93 L 93 L 02/11/18 20:10 02/11/18 20:15 02/11/18 21:00 Temperature Pulse Rate 106 H Respiratory Rate 27 H 20 22 Blood Pressure 174/74 H Pulse Oximetry 02/11/18 22:00 02/11/18 23:00 02/12/18 00:00 Temperature Pulse Rate 98 H 85 88 Respiratory Rate 20 23 22 Blood Pressure 143/66 H 178/77 H 155/81 H Pulse Oximetry 92 L 91 L 92 L 02/12/18 01:00 02/12/18 02:00 02/12/18 02:38 Temperature Pulse Rate 88 95 H Respiratory Rate 22 22 22 Blood Pressure 178/84 H 155/76 H Pulse Oximetry 96 96 02/12/18 03:00 02/12/18 03:48 02/12/18 03:59 Temperature Pulse Rate 90 Respiratory Rate 23 22 Blood Pressure 170/111 H Pulse Oximetry 90 L 93 L 02/12/18 04:00 02/12/18 04:17 02/12/18 04:30 Temperature Pulse Rate 95 H 92 H 86 Respiratory Rate 21 18 20 Blood Pressure 184/80 H 178/86 H 167/80 H Pulse Oximetry 96 91 L 91 L 02/12/18 05:00 02/12/18 05:39 02/12/18 06:01 Temperature Pulse Rate 97 H 105 H 102 H Respiratory Rate 21 23 21 Blood Pressure 162/104 H 166/79 H 153/90 H Pulse Oximetry 93 L 93 L 93 L 02/12/18 06:20 02/12/18 06:30 02/12/18 06:32 Temperature Pulse Rate 95 H 97 H 95 H Respiratory Rate 17 21 21 Blood Pressure 152/105 H 143/89 H Pulse Oximetry 93 L 93 L 94 L 02/12/18 07:12 02/12/18 07:31 02/12/18 07:36 Temperature Pulse Rate 98 H 96 H 102 H Respiratory Rate 21 22 21 Blood Pressure 174/79 H 205/79 H 210/91 H Pulse Oximetry 94 L 94 L 94 L 02/12/18 08:00 02/12/18 08:04 02/12/18 08:31 Temperature 97.6 F 97.6 F Pulse Rate 101 H 99 H 99 H Respiratory Rate 22 22 24 Blood Pressure 137/61 137/61 213/111 H Pulse Oximetry 94 L 94 L 94 L 02/12/18 08:43 02/12/18 09:00 02/12/18 09:05 Temperature Pulse Rate 99 H 107 H Respiratory Rate 20 23 Blood Pressure 162/84 H 170/91 H Pulse Oximetry 94 L 94 L 94 L 02/12/18 09:31 02/12/18 10:00 02/12/18 10:01 Temperature Pulse Rate 108 H 98 H 98 H Respiratory Rate 24 24 24 Blood Pressure 152/73 H 93/67 L 93/67 L Pulse Oximetry 94 L 97 97 02/12/18 10:31 02/12/18 10:41 02/12/18 11:01 Temperature Pulse Rate 98 H 101 H 100 H Respiratory Rate 21 26 H 19 Blood Pressure 143/57 H 152/75 H Pulse Oximetry 96 96 96 02/12/18 11:31 02/12/18 12:00 02/12/18 12:01 Temperature 97.5 F L 97.5 F L Pulse Rate 97 H 96 H 96 H Respiratory Rate 20 20 18 Blood Pressure 156/74 H 126/79 126/79 Pulse Oximetry 96 96 96 02/12/18 12:59 02/12/18 13:00 02/12/18 13:30 Temperature Pulse Rate 110 H 109 H 94 H Respiratory Rate 24 19 23 Blood Pressure 128/81 142/81 H 154/109 H Pulse Oximetry 95 95 95 02/12/18 13:34 02/12/18 13:49 Temperature Pulse Rate 100 H 91 H Respiratory Rate 25 H 24 Blood Pressure 177/112 H Pulse Oximetry 95 95 Intake & Output 02/11/18 02/12/18 02/12/18 18:59 06:59 18:59 Intake Total 697 / 697 0 / 0 Balance 697 / 697 0 / 0 Weight 94.5 kg Intake: IV 372 / 372 Cardene Inj 25 MG In NS Inj 240 372 / 372 ML @ 5 MG/HR 50 mls/hr IV.CONT TITRATE PRN Rx#:[id number] Oral 325 / 325 0 / 0 Other: # Incontinent Voids 3 5 - Constitutional obtunded - Routine HEENT Exam Head: Present: normocephalic ENT: Present: external ear normal - Routine Neck Exam Present: supple - Routine Respiratory Exam Comments: Lungs were clear to auscultation with appropriate ventilatory and inspiratory effort. - Routine Cardiovascular Exam Comments: Heart was regular in rate and rhythm with no murmurs - Routine Abdominal Exam Present: soft - Routine Extremities Exam Present: edema Comments: Edema 1+ of the right lower extremities. - Routine Skin Exam Present: intact - Routine Neurological Exam Present: altered mental status Results - Labs CBC & Chem 7: 02/12/18 05:14 02/12/18 05:14 Labs: Laboratory Results - last 24 hr 02/11/18 02/11/18 02/12/18 03:39 03:39 05:14 WBC RBC Hgb Hct MCV MCH MCHC RDW Plt Count MPV Neut % (Auto) Lymph % (Auto) [place] % (Auto) Eos % (Auto) Baso % (Auto) Neut # (Auto) Lymph # (Auto) [place] # (Auto) Eos # (Auto) Baso # (Auto) WBC Differential Differential Comment PT 16.1 H INR 1.6 Sodium Potassium Chloride Carbon Dioxide Anion Gap BUN Creatinine Estimated GFR Random Glucose Hemoglobin A1c 5.3 Calcium Phosphorus Magnesium Total Bilirubin AST ALT Alkaline Phosphatase Total Protein Albumin Prostate Specific Ag 4.37 H 02/12/18 02/12/18 05:14 05:14 WBC 7.4 RBC 3.78 L Hgb 12.8 L Hct 36.9 L MCV 97.5 MCH 33.8 MCHC 34.7 RDW 14.8 Plt Count 223 MPV 8.4 Neut % (Auto) 73.6 H Lymph % (Auto) 14.7 [place] % (Auto) 8.1 H Eos % (Auto) 2.8 Baso % (Auto) 0.8 Neut # (Auto) 5.5 Lymph # (Auto) 1.1 [place] # (Auto) 0.6 Eos # (Auto) 0.2 Baso # (Auto) 0.1 WBC Differential . Differential Comment Auto diff final PT INR Sodium 138 Potassium 4.0 Chloride 104 Carbon Dioxide 26.9 Anion Gap 7 BUN 26 H Creatinine 0.66 Estimated GFR Greater than 89 Random Glucose 91 Hemoglobin A1c Calcium 9.1 Phosphorus 3.2 Magnesium 2.0 Total Bilirubin 1.5 H AST 28 ALT 25 Alkaline Phosphatase 110 Total Protein 6.5 Albumin 3.1 L Prostate Specific Ag - Imaging MRI T-spine 02/10/2018: CONCLUSION: 1. Since October, a 2.7 cm metastatic lesion has developed of the T12 vertebral body and there is a mild pathologic compression fracture that appears acute or subacute. A benign-appearing mild compression fracture has developed of T12. 2. Considerable edema of the T12/L1 disc but without significant enhancement and there is vacuum phenomena on the comparison CT may be against infectious discitis. 3. No high-grade foraminal or spinal stenosis of the thoracic spine. MRI lumbar spine 02/10/2018: CONCLUSION: 1. Large infiltrative lesion of L4 again noted without pathologic fracture or perceptible extraosseous mass. No tumor-associated foraminal or spinal stenosis seen. 2. A new metastatic lesion as developed of the T12 vertebral body and please refer to the thoracic spine MRI report. 3. Multilevel degenerative changes as described, not significantly changed from longus. Assessment and Plan - Plan Assessment: 82-year-old white male with diagnosis of progressive metastatic colon carcinoma. Patient had been evaluated for palate of her therapy treatment options. Plan: I have discussed the case with Dr. Terrazas. I have also discussed this case with interventional radiology Dr. Sutton. Patient would be eligible for kyphoplasty, bone ablation and sedimentation of T12 and perhaps possibly L1. At the present time the patient is confused and restrained. Patient is to have an MRI if possible today of the brain. Possible diagnosis of brain metastasis versus meningeal involvement versus encephalopathy. At the present time the patient is not a candidate for palate of her therapy. In case the patient's performance status improves and he is no longer confused unable to follow commands, then the patient will be eligible for palliative treatment. In this case I would recommend ablation sedimentation and biopsy of T12, followed by radiotherapy. In case the patient has brain metastasis and his mental status improved, then he could be a candidate for brain radiotherapy as well. Hospice care should be discussed with the patient's family if the condition does not improve. We will proceed accordingly. Discussed Condition With: Dr. Terrazas
[2018-02-12] MEDS ORDERED: Gadobutrol PF 10 MMOL/10 ML Vial (for RAD) IV.SIG ONE (16:59)
--- NOTE | 2018-02-12 17:01 | MR ---
EXAM DATE: 02/12/2018 4:55 PM EST AGE/SEX: 82 years / Male INDICATIONS: Altered mental status. Poss mets. CLINICAL DATA: This is the patient's initial encounter. Patient reports that signs and symptoms have been present for 3 days and indicates a pain score of Nonresponsive. MEDICAL/SURGICAL HISTORY: Carcinoma, colon. Colon resection. CABG. Cholecystectomy. COMPARISON: [facility], MR HEAD W & W/O CONTRAST, 02/02/2018. . TECHNIQUE: Multiplanar, multisequence examination of the brain was performed without and with 10 ml G adavist (gadobutrol) contrast as a single exam dose. The study is limited due to motion artifact on m ultiple images. FINDINGS: Cerebrum: The ventricles are normal for age. There is bilateral cortical atrophy. No evidence of mid line shift, mass lesion, hemorrhage or acute infarction. No extraaxial fluid collections are seen. The pituitary gland and suprasellar cistern are normal in configuration. White Matter: No significant signal abnormalities are seen in the white matter. Posterior Fossa: The cerebellum and brainstem are stable. 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 The 4th ventricle is midline. The cerebellopontine angle is unremarka ble. The cerebellar tonsils are normal in position. Diffusion Imaging: No focal areas of restricted diffusion are seen. No evidence of acute infarction . Extracranial: The visualized portions of the orbits and paranasal sinuses are unremarkable. Post Contrast: No abnormal areas of parenchymal or dural enhancement. No evidence of blood-brain ba rrier breakdown. No enhancing mass occupying lesions. Compared to the prior exam, no new or significant changes are demonstrated. CONCLUSION: 1. Limited study due to motion artifact on essentially all the images. 2. Diffuse bilateral cortical atrophy without significant change compared to the prior examination. 3. 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 4. No significant change compared to the prior exam. Electronically signed by: Eduardo Martin MD 02/12/2018 5:00 PM EST
[2018-02-12] MEDS: Famotidine PF Inj 20 MG/2 ML Vial IV.PUSH SCH (21:08)
[2018-02-12] MEDS: Lisinopril 20 MG Tablet PO SCH (21:08)
[2018-02-12] MEDS: Pregabalin 75 MG Capsule PO SCH (21:08)
[2018-02-13] MEDS: Morphine Sulfate Inj 2 MG/ML Vial IV.PUSH PRN (01:13)
[2018-02-13] MEDS: Chlorhexidine Gluconate 2% 1 Pack (2 Cloths) TOPICAL SCH (04:14)
[2018-02-13] MEDS: Methocarbamol 500 MG Tablet PO SCH ×3 (05:26→21:19)
[2018-02-13 05:46] LABS: Baso % (Auto) 0.5 % (0.0-2.0); Eos # (Auto) 0.1 th/mm3 (0.0-0.4); Eos % (Auto) 0.8 % (0.0-4.0); Hematocrit 36.5 % (39.0-51.0); Hemoglobin 12.6 gm/dL (13.0-17.0); Lymph # (Auto) 0.8 th/mm3 (1.0-4.8); Lymph % (Auto) 9.1 % (9.0-44.0); Mean Corpuscular HGB Conc 34.6 % (32.0-36.0); Mean Corpuscular Volume 98.3 fL (80.0-100.0); Mean Platelet Volume 8.4 fL (7.0-11.0); Mono # (Auto) 0.7 th/mm3 (0.0-0.9); Mono % (Auto) 8.4 % (0.0-8.0); Neut # (Auto) 7.1 th/mm3 (1.8-7.7); Neut % (Auto) 81.2 % (16.0-70.0); Platelet Count 233 th/mm3 (150-450); Red Blood Count 3.72 mil/mm3 (4.50-5.90); Red Cell Distribution Width 15.1 % (11.6-17.2); White Blood Count 8.7 th/mm3 (4.0-11.0)
[2018-02-13 06:08] LABS: Anion Gap 8 meq/L (5-15); Blood Urea Nitrogen 35 mg/dL (7-18); Calcium 9.4 mg/dL (8.5-10.1); Carbon Dioxide 26.8 meq/L (21.0-32.0); Chloride 104 meq/L (98-107); Glomerular Filtration Rate Greater Than 89 mL/min (>89); Glucose,Random 117 mg/dL (74-106); Potassium 4.1 meq/L (3.5-5.1); Sodium 139 meq/L (136-145)
[2018-02-13] MEDS: Enoxaparin Inj 100 MG/ML Syringe SQ SCH ×2 (08:27→21:02)
[2018-02-13] MEDS: Senna/Docusate Sodium 8.6/50 MG Tablet PO SCH ×2 (08:27→21:02)
[2018-02-13] MEDS: Tolterodine Tartrate LA 4 MG Capsule PO SCH (08:27)
[2018-02-13] MEDS: Metoprolol Tartrate 50 MG Tablet PO SCH ×2 (08:27→21:03)
[2018-02-13] MEDS: amLODIPine 5 MG Tablet PO SCH (08:27)
[2018-02-13] MEDS: Famotidine PF Inj 20 MG/2 ML Vial IV.PUSH SCH ×2 (08:27→21:05)
[2018-02-13] MEDS: Timolol 0.25% Drops 5 ML Bottle EACH EYE SCH ×2 (08:28→21:02)
[2018-02-13] MEDS ORDERED: Megestrol Acetate Liq 400 MG/10 ML UDC PO SCH (09:00)
--- NOTE | 2018-02-13 09:47 | P.PNONC ---
Subjective Interval history: Afebrile. RN at the bedside, after she cleans his eyelids the patient is able to open his eyes. He is following some commands and appears to be doing a little better today. Objective Vital Signs/Intake & Output: Vital Signs 02/12/18 10:00 02/12/18 10:01 02/12/18 10:31 Temperature Pulse Rate 98 H 98 H 98 H Respiratory Rate 24 24 21 Blood Pressure 93/67 L 93/67 L 143/57 H Pulse Oximetry 97 97 96 02/12/18 10:41 02/12/18 11:01 02/12/18 11:31 Temperature Pulse Rate 101 H 100 H 97 H Respiratory Rate 26 H 19 20 Blood Pressure 152/75 H 156/74 H Pulse Oximetry 96 96 96 02/12/18 12:00 02/12/18 12:01 02/12/18 12:59 Temperature 97.5 F L 97.5 F L Pulse Rate 96 H 96 H 110 H Respiratory Rate 20 18 24 Blood Pressure 126/79 126/79 128/81 Pulse Oximetry 96 96 95 02/12/18 13:00 02/12/18 13:30 02/12/18 13:34 Temperature Pulse Rate 109 H 94 H 100 H Respiratory Rate 19 23 25 H Blood Pressure 142/81 H 154/109 H 177/112 H Pulse Oximetry 95 95 95 02/12/18 13:49 02/12/18 13:55 02/12/18 14:00 Temperature Pulse Rate 91 H 97 H 106 H Respiratory Rate 24 19 25 H Blood Pressure 163/68 H 150/80 H Pulse Oximetry 95 95 95 02/12/18 14:30 02/12/18 14:35 02/12/18 15:00 Temperature Pulse Rate 94 H 100 H 93 H Respiratory Rate 20 28 H 19 Blood Pressure 148/114 H 162/121 H 123/59 L Pulse Oximetry 95 95 95 02/12/18 15:01 02/12/18 15:30 02/12/18 16:00 Temperature 98.5 F Pulse Rate 93 H 100 H 111 H Respiratory Rate 19 24 24 Blood Pressure 123/59 L 92/63 L 134/101 H Pulse Oximetry 95 95 96 02/12/18 16:58 02/12/18 17:00 02/12/18 17:01 Temperature 98.5 F 98.5 F Pulse Rate 111 H 111 H 104 H Respiratory Rate 24 24 23 Blood Pressure 134/101 H 134/101 H 188/110 H Pulse Oximetry 96 96 95 02/12/18 17:19 02/12/18 17:31 02/12/18 17:49 Temperature Pulse Rate 111 H 113 H 105 H Respiratory Rate 29 H 24 21 Blood Pressure 230/175 H 132/72 Pulse Oximetry 95 95 95 02/12/18 18:16 02/12/18 18:17 02/12/18 19:03 Temperature Pulse Rate 105 H 111 H Respiratory Rate 21 26 H Blood Pressure 171/97 H Pulse Oximetry 93 L 93 L 96 02/12/18 19:29 02/12/18 20:00 02/12/18 20:12 Temperature 99 F Pulse Rate 112 H 109 H 119 H Respiratory Rate 34 H 29 H Blood Pressure 175/77 H Pulse Oximetry 90 L 96 02/12/18 21:14 02/12/18 21:33 02/12/18 22:00 Temperature Pulse Rate 113 H 114 H 107 H Respiratory Rate 21 21 Blood Pressure 173/72 H Pulse Oximetry 95 96 02/12/18 22:01 02/12/18 22:26 02/12/18 22:30 Temperature Pulse Rate 114 H 115 H 113 H Respiratory Rate 22 19 17 Blood Pressure 169/78 H 169/73 H Pulse Oximetry 95 96 95 02/12/18 23:01 02/12/18 23:31 02/13/18 00:00 Temperature Pulse Rate 114 H 102 H 102 H Respiratory Rate 17 22 Blood Pressure 176/74 H 166/71 H Pulse Oximetry 95 95 02/13/18 00:01 02/13/18 00:11 02/13/18 00:30 Temperature 99 F Pulse Rate 108 H 113 H 107 H Respiratory Rate 21 20 17 Blood Pressure 169/84 H 181/74 H Pulse Oximetry 95 95 95 02/13/18 01:00 02/13/18 01:07 02/13/18 01:10 Temperature Pulse Rate 117 H 117 H 114 H Respiratory Rate 40 H 26 H 32 H Blood Pressure 193/133 H 196/89 H Pulse Oximetry 94 L 95 96 02/13/18 01:43 02/13/18 02:00 02/13/18 02:33 Temperature Pulse Rate 106 H 102 H 103 H Respiratory Rate 22 20 17 Blood Pressure 157/80 H 177/79 H 110/70 Pulse Oximetry 96 95 95 02/13/18 03:01 02/13/18 04:00 02/13/18 04:08 Temperature 98 F Pulse Rate 93 H 103 H 110 H Respiratory Rate 22 21 21 Blood Pressure 124/82 130/81 Pulse Oximetry 95 95 95 02/13/18 05:00 02/13/18 05:15 02/13/18 05:19 Temperature Pulse Rate 109 H 106 H 103 H Respiratory Rate 36 H 24 30 H Blood Pressure 127/102 H 141/104 H Pulse Oximetry 95 94 L 95 02/13/18 05:30 02/13/18 05:45 02/13/18 06:00 Temperature Pulse Rate 102 H 88 107 H Respiratory Rate 22 25 H 15 Blood Pressure 168/71 H 160/74 H 189/81 H Pulse Oximetry 94 L 96 95 Intake & Output 02/12/18 02/13/18 02/13/18 18:59 06:59 18:59 Intake Total 25 / 25 240 / 240 Balance 25 / 25 240 / 240 Weight 94 kg Intake: Oral 25 / 25 240 / 240 Other: # Incontinent Voids 3 8 # Bowel Movements 0 Result Diagrams: 02/13/18 05:10 02/13/18 05:10 Laboratory Results: Laboratory Results - last 24 hr 02/13/18 02/13/18 05:10 05:10 WBC 8.7 RBC 3.72 L Hgb 12.6 L Hct 36.5 L MCV 98.3 MCH 34.0 MCHC 34.6 RDW 15.1 Plt Count 233 MPV 8.4 Neut % (Auto) 81.2 H Lymph % (Auto) 9.1 Mclennan % (Auto) 8.4 H Eos % (Auto) 0.8 Baso % (Auto) 0.5 Neut # (Auto) 7.1 Lymph # (Auto) 0.8 L Mclennan # (Auto) 0.7 Eos # (Auto) 0.1 Baso # (Auto) 0.0 WBC Differential . Differential Comment Auto diff final Sodium 139 Potassium 4.1 Chloride 104 Carbon Dioxide 26.8 Anion Gap 8 BUN 35 H Creatinine 0.79 Estimated GFR Greater than 89 Random Glucose 117 H Calcium 9.4 Imaging Studies: Impressions Head MRI 02/12/18 07:07 CONCLUSION: 1. Limited study due to motion artifact on essentially all the images. 2. Diffuse bilateral cortical atrophy without significant change compared to the prior examination. 3. 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 4. No significant change compared to the prior exam. Medications: Active Medications Generic Name Dose Route Start Last Admin Trade Name Freq PRN Reason Stop Dose Admin Amlodipine Besylate 5 mg 02/10/18 17:15 02/13/18 08:27 Norvasc PO 5 mg DAILY SAMM Administration Atorvastatin Calcium 80 mg 02/10/18 21:00 02/12/18 21:07 Lipitor PO 80 mg HS SAMM Administration Chlorhexidine Gluconate 3 pack 02/11/18 04:00 02/13/18 04:14 Chlorhexidine 2% Cloth TOPICAL 02/16/18 03:59 3 pack DAILY@0400 SAMM Administration Enoxaparin Sodium 100 mg 02/10/18 17:00 02/13/18 08:27 Lovenox Inj SQ 100 mg Q12HR SAMM Administration Famotidine 20 mg 02/10/18 21:00 02/12/18 21:08 Pepcid PO 20 mg BID SAMM Administration Famotidine 20 mg 02/12/18 21:00 02/13/18 08:27 Pepcid Pf Inj IV.PUSH 20 mg Q12HR SAMM Administration Hydralazine HCl 20 mg 02/10/18 16:32 02/12/18 14:48 Apresoline Inj IV.PUSH 20 mg Q4H PRN Administration SBP>160, DBP>90 Nicardipine HCl 25 mg/ Sodium 250 mls @ 50 mls/hr 02/10/18 14:28 02/11/18 12: 00 Chloride IV.CONT Infused TITRATE PRN Titration Per Protocol Protocol 5 MG/HR Lisinopril 20 mg 02/10/18 21:00 02/12/18 21:08 Prinivil PO 20 mg HS SAMM Administration Megestrol Acetate 400 mg 02/13/18 09:00 02/13/18 08:28 Megace Liq PO 400 mg DAILY SAMM Administration Methocarbamol 1,000 mg 02/10/18 22:00 02/13/18 05:26 Robaxin PO Not Given Q8HR SAMM Metoprolol Tartrate 50 mg 02/10/18 21:00 02/13/18 08:27 Lopressor PO 50 mg BID SAMM Administration Morphine Sulfate 2 mg 02/10/18 16:23 02/13/18 01:13 Morphine Inj IV.PUSH 2 mg Q3H PRN Administration PAIN 3-5; IF UABLE TO TAKE PO Morphine Sulfate 4 mg 02/10/18 16:23 02/13/18 05:26 Morphine Inj IV.PUSH 4 mg Q3H PRN Administration BREAKTHROUGH PAIN Morphine Sulfate 4 mg 02/10/18 16:23 02/12/18 02:38 Morphine Inj IV.PUSH 4 mg Q1H PRN Administration Pain Scale 7-10 (Intractable) Ondansetron HCl 4 mg 02/10/18 16:23 02/11/18 20:10 Zofran Inj IV.PUSH 4 mg Q6H PRN Administration NAUSEA OR VOMITING Oxycodone/Acetaminophen 1 tab 02/10/18 16:23 02/11/18 03:55 Percocet 5/325 Mg PO 1 tab Q6H PRN Administration PAIN SCALE 3 TO 5 Pregabalin 75 mg 02/10/18 21:00 02/12/18 21:08 Lyrica PO 75 mg HS SAMM Administration Senna/Docusate Sodium 1 tab 02/10/18 21:00 02/13/18 08:27 Marlena-Colace PO 1 tab BID SAMM Administration Sodium Chloride 2 ml 02/10/18 21:00 02/13/18 08:28 Ns Flush IV.FLUSH 2 ml BID SAMM Administration Timolol Maleate 1 drops 02/10/18 21:00 02/13/18 08:28 Timolol 0.25% Drops EACH EYE 1 drops Q12HR SAMM Administration Tolterodine Tartrate 4 mg 02/11/18 09:00 02/13/18 08:27 Detrol La PO 4 mg DAILY SAMM Administration Warfarin Sodium 3 mg 02/11/18 16:00 02/12/18 17:14 Coumadin PO 3 mg DAILY@1600 SAMM Administration Objective Remarks: GENERAL: Elderly male patient, in soft restraints. SKIN: Pale, warm and dry. HEAD: Normocephalic. EYES: Yellow crusted drainage left eyelid. NECK: Supple, trachea midline. No JVD or lymphadenopathy. CARDIOVASCULAR: Tachycardic. RESPIRATORY: Breath sounds distant, equal bilaterally. No accessory muscle use. GASTROINTESTINAL: Abdomen soft, non-tender, nondistended. EXTREMITIES: No cyanosis, or edema. MUSCULOSKELETAL: Adequate muscle tone. NEUROLOGICAL: Follows simple commands. Does not answer questions. Assessment/Plan - Plan Mr Quiroz is an 82-year-old gentleman with colon cancer with multiple relapses. He has been on palliative Avastin and FOLFIRI chemotherapy since June 2017, his last treatment was 01/15/2018. He has most recently had some mental status changes and severe back pain. Recommendations: 1. Colon cancer with multiple relapses. His last chemotherapy treatment was on 01/15/2018. 2. Weakness of both lower legs and severe back pain. 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 There is a mild pathologic compression fraction that appears acute or subacute. A benign appearing mild compression fraction of T12. Considerable edema of the T12/L1 disc. Neurosurgery-no surgical interventions, radiation only. Patient evaluated by Dr. Scruggs, at this time patient is not a candidate given his current medical condition. 3. Altered mental status, neurology is following. EEG consistent with diffuse encephalopathy. May need spinal tap to evaluate for carcinomatosis meningitis, if this is found the patient will not be a candidate for any further chemotherapy. Will defer to neurologist. 4. Palliative care has been consulted and will likely meet with the family today. - Attending Statement The exam, history, and the medical decision-making described in the above note were completed with the assistance of the mid-level provider. I reviewed and agree with the findings presented. I attest that I had a [id number] encounter with the patient on the same day, and personally performed and documented my assessment and findings in the medical record. Patient is still confused Recommend spinal tap to evaluate for carcinomatous meningitis. Defer to neurology Patient is not stable to start palliative radiation therapy Neurosurgery does not recommend any intervention for the spinal stenosis Palliative care consult pending If no improvement then consider hospice
[2018-02-13 10:11] LABS: INR 1.8 Ratio; Prothrombin Time 18.1 sec (9.8-11.6)
--- NOTE | 2018-02-13 10:59 | P.CONPAL ---
Consult Service: Palliative Care Requesting Physician: Nichelle Pavon Reason for Consult: a. To assist with evaluation and management of symptoms including: pain, altered mental status b. To assist medical decision maker(s) with: better understanding of current medical conditions; weighing benefits/burdens of medical treatment options; making medical treatment decisions. Primary Care Provider: Reyna Pastor MD History of Present Illness History of Present Illness: This is an 82-year-old male with a long-standing history of colon cancer originally diagnosed in 2006. He was brought to the emergency room via EMS for 10-day history of low back pain after a mechanical fall. He is reportedly been bedbound since the fall due to pain. Patient has known history of spinal metastasis. He also has a significant cardiac history, has not been taking his blood pressure medications for several days and presented with significant hypertension, systolic blood pressure 259/120. Of note, patient's had ED visits 02/02/18 and 02/01/18 for pain and weakness. Patient was admitted to the ICU with Cardene drip after failed attempts of restarting home blood pressure medications. He has continued to have lower extremity weakness, MRI of the thoracic spine now shows new 2.7 cm metastatic lesion of the T12 vertebral body with mild pathologic compression fracture, unsure if it is acute or subacute. Now has altered mental status, EEG consistent with diffuse encephalopathy, neurology is following, recommending possible spinal tap to evaluate for carcinomatosis meningitis. Additional history: * Original diagnosed in 2006. At that time he underwent proctosigmoidectomy and was treated with chemotherapy with subsequent remission. * In July 2013 he had a relapse with retroperitoneal lymphadenopathy and was again treated with a 6-month course of chemotherapy with remission. * In June 2014 again had recurrence of disease in the same area of retroperitoneum lymph nodes at that time underwent radiation subsequent CAT scan and PET scan showed no evidence of residual disease. * August 2015 he was again found to have his third recurrence in the retroperitoneal area, at that point he was started on Xeloda chemotherapy. * In January 2017 he developed toxicity and was found to have progressive disease. At that time CAT scans revealed no evidence of disease, however his CEA was trending up. 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 * January 15, 2018 chemo stopped secondary to ongoing diarrhea despite multiple changes to chemo doses 12p: At time of my visit today, and son are not available. Patient is lying in bed with bilateral wrist restraints in place. Somewhat lethargic but easily arouses. Both eyes deviate up into the right but he is able to focus midline with tracking. Pupils equal with slow reaction likely secondary to pain medication. He is definitely having some difficulty finding words. He is able to answer some questions appropriately but does not give any response to other questions. When asked if he was having pain, he gives no response. When asked where is his pain located, he is able to tell me that it in his lower back. He is unable to tell me the year, his location, or who the president as. Other answers start out with clear speech followed by mumbling. Skin is pale , upper extremities are edematous. Left palliative contact information at bedside. Spoke with bedside nurse who states she expects at around 2:00 today. We will follow-up at that time 1600: Called and left for requesting return call. 1700: Received call from bedside nurse, family now available, Unable to meet at that time. Return call to son at 1900, plan to meet with family tomorrow morning. Function/Cognitive Trajectory: Patient was originally diagnosed with colon cancer 2006. Since that time he has had multiple relapses. He had failed palliative treatment, was stopped due to severe diarrhea. Over the past year he has had progressive weakness. Now has further progression of disease, has new metastatic lesion, is now encephalopathic. Had a fall about 10 days ago, has been bedbound since that time. At risk for worsening debility secondary to critical illness, progressing weakness, spinal metastasis, and encephalopathy Review of Systems Constitutional: Reports fatigue, Reports weakness Eyes: Denies change in vision Ears, Nose, Mouth, and Throat: Denies change in voice Cardiovascular: Denies chest pain Respiratory: Denies cough, Denies wheezing Gastrointestinal: Denies abdominal pain Genitourinary: Denies difficulty urinating Musculoskeletal: Reports abnormal walking (bedbound post fall), Reports back pain, Reports muscle weakness, Reports tingling Skin/Breast: Denies change in skin color Neurologic: Reports abnormal walking (fall), Reports tingling/numbness/burning sensations, Reports weakness Psychiatric: Reports confusion, Denies anxiety, Denies depression Endocrine: Denies cold intolerance Hematologic/Lymphatic: Reports easy bleeding, Reports easy bruising (on blood thinners) Allergic/Immunologic: Denies wheezing PMFSH - History History Provided By: Family Member, Medical Record - Medical History Medical History: Medical History (Last Updated 02/13/18 @ 11:44 by KENYA Kohli) History of cerebellar stroke History of high blood pressure History of high cholesterol Hx of balanitis Hx of malignant neoplasm of colon - Surgical History Surgical History: Surgical History (Last Reviewed 02/13/18 @ 10:46 by KENYA Kohli) Hx of artificial heart valve replacement Hx of cholecystectomy Hx of colonoscopy Hx of heart bypass surgery - Family History Family History: Family History (Last Reviewed 02/13/18 @ 10:47 by KENYA Kohli) Other Family history of hypertension - Tobacco History Second Hand Smoke Exposure: No Tobacco Use In Past 30 Days: No Smoking Status: Never smoker - Alcohol History How Often Do You Have a Drink Containing Alcohol: 4 or more times a week - Substance Use History Substance History: No History of Abuse - Travel History History of Recent Travel: No Recent Travel in the [place] Within the Last 8 Weeks: No Recent Travel Out of the Country Within the Last 8 Weeks: No - Immunization History Tetanus Immunization: <5 Years Hx Influenza Vaccine This Season: No Medications and Allergies Active Medications: Active Medications Acetaminophen (Tylenol) 650 mg PO Q6H PRN PRN Reason: FEVER >101F Acetaminophen (Tylenol) 650 mg PO Q6H PRN PRN Reason: PAIN SCALE 1 TO 2 Al Hydroxide/Mg Hydroxide (Milk Of Anisha Pittman) 30 ml PO Q12H PRN PRN Reason: Mild Constipation Amlodipine Besylate (Norvasc) 5 mg PO DAILY [facility] Last Admin: 02/13/18 08:27 Dose: 5 mg Atorvastatin Calcium (Lipitor) 80 mg PO HS [facility] Last Admin: 02/12/18 21:07 Dose: 80 mg Bisacodyl (Dulcolax Supp) 10 mg RECTAL DAILY PRN PRN Reason: SEVERE CONSITIPATION Chlorhexidine Gluconate (Chlorhexidine 2% Cloth) 3 pack TOPICAL DAILY@0400 [facility] Stop: 02/16/18 03:59 Last Admin: 02/13/18 04:14 Dose: 3 pack Chlorhexidine Gluconate (Chlorhexidine 2% Cloth) 3 pack TOPICAL DAILY@0400 PRN PRN Reason: Extra cloth needed Stop: 02/16/18 03:59 Clonidine HCl (Catapres) 0.1 mg PO Q6H PRN PRN Reason: HYPERTENSION Enoxaparin Sodium (Lovenox Inj) 100 mg SQ Q12HR [facility] Last Admin: 02/13/18 08:27 Dose: 100 mg Famotidine (Pepcid) 20 mg PO BID [facility] Last Admin: 02/12/18 21:08 Dose: 20 mg Famotidine (Pepcid Pf Inj) 20 mg IV.PUSH Q12HR [facility] Last Admin: 02/13/18 08:27 Dose: 20 mg Hydralazine HCl (Apresoline Inj) 20 mg IV.PUSH Q4H PRN PRN Reason: SBP>160, DBP>90 Last Admin: 02/12/18 14:48 Dose: 20 mg Nicardipine HCl 25 mg/ Sodium (Chloride) 250 mls @ 50 mls/hr IV.CONT TITRATE PRN; Protocol PRN Reason: Per Protocol Last Titration: 02/11/18 12:00 Dose: Infused Lactulose (Lactulose Liq) 30 ml PO DAILY PRN PRN Reason: SEVERE CONSITIPATION Lisinopril (Prinivil) 20 mg PO HS [facility] Last Admin: 02/12/18 21:08 Dose: 20 mg Megestrol Acetate (Megace Liq) 400 mg PO DAILY [facility] Last Admin: 02/13/18 08:28 Dose: 400 mg Methocarbamol (Robaxin) 1,000 mg PO Q8HR [facility] Last Admin: 02/13/18 05:26 Dose: Not Given Metoprolol Tartrate (Lopressor) 50 mg PO BID [facility] Last Admin: 02/13/18 08:27 Dose: 50 mg Morphine Sulfate (Morphine Inj) 2 mg IV.PUSH Q3H PRN PRN Reason: PAIN 3-5; IF UABLE TO TAKE PO Last Admin: 02/13/18 01:13 Dose: 2 mg Morphine Sulfate (Morphine Inj) 4 mg IV.PUSH Q3H PRN PRN Reason: BREAKTHROUGH PAIN Last Admin: 02/13/18 05:26 Dose: 4 mg Morphine Sulfate (Morphine Inj) 4 mg IV.PUSH Q1H PRN PRN Reason: Pain Scale 7-10 (Intractable) Last Admin: 02/12/18 02:38 Dose: 4 mg Morphine Sulfate (Morphine Inj) 4 mg IV.PUSH Q3H PRN PRN Reason: PAIN 6-10;IF UNABLE TO TAKE PO Naloxone HCl (Narcan Inj) 0.4 mg IV.PUSH UNSCH PRN PRN Reason: SEE LABEL COMMENTS Ondansetron HCl (Zofran Inj) 4 mg IV.PUSH Q6H PRN PRN Reason: NAUSEA OR VOMITING Last Admin: 02/11/18 20:10 Dose: 4 mg Ondansetron HCl (Zofran Inj) 4 mg IV.PUSH Q6H PRN PRN Reason: NAUSEA OR VOMITING Oxycodone/Acetaminophen (Percocet 10/325 Mg) 1 tab PO Q6H PRN PRN Reason: PAIN SCALE 6 TO 10 Oxycodone/Acetaminophen (Percocet 5/325 Mg) 1 tab PO Q6H PRN PRN Reason: PAIN SCALE 3 TO 5 Last Admin: 02/11/18 03:55 Dose: 1 tab Pt Own (Capecitabine [Xeloda] 1,500 Mg) Tablet 1 each PO BID [facility] Pharmacy Profile Note (Coumadin Consult Pharmacy) 1 each OTHER UNSCH PRN PRN Reason: PHARMACY DOCUMENTATION Pregabalin (Lyrica) 75 mg PO [facility] Last Admin: 02/12/18 21:08 Dose: 75 mg Quetiapine Fumarate (Seroquel) 25 mg PO BID PRN PRN Reason: AGITATION Senna/Docusate Sodium (Marlena-Colace) 1 tab PO BID [facility] Last Admin: 02/13/18 08:27 Dose: 1 tab Sennosides (Senokot) 17.2 mg PO Q12H PRN PRN Reason: Moderate Constipation Sodium Chloride (Ns Flush) 2 ml IV.FLUSH BID [facility] Last Admin: 02/13/18 08:28 Dose: 2 ml Sodium Chloride (Ns Flush) 2 ml IV.FLUSH PRN PRN PRN Reason: FLUSH AFTER USING IV ACCESS Timolol Maleate (Timolol 0.25% Drops) 1 drops EACH EYE Q12HR [facility] Last Admin: 02/13/18 08:28 Dose: 1 drops Tolterodine Tartrate (Detrol La) 4 mg PO DAILY [facility] Last Admin: 02/13/18 08:27 Dose: 4 mg Warfarin Sodium (Coumadin) 3 mg PO DAILY@1600 [facility] Last Admin: 02/12/18 17:14 Dose: 3 mg Allergies Allergy/AdvReac Type Severity Reaction Status Date / Time No Known Allergies Allergy Verified 02/01/18 19:28 Home Medications Medication Instructions Recorded Confirmed Type atorvastatin 80 mg PO QPM 02/01/18 02/10/18 History leuprolide (3 month) [Eligard (3 22.5 mg SUBCUT [id number] 02/01/18 02/10/18 History month)] lisinopril 20 mg PO QPM 02/01/18 02/10/18 History metoprolol tartrate 50 mg PO BID 02/01/18 02/10/18 History oxybutynin chloride 15 mg PO QPM 02/01/18 02/10/18 History pregabalin [Lyrica] 75 mg PO HS 02/01/18 02/10/18 History capecitabine [Xeloda] 1,500 mg PO Q12H 02/10/18 02/10/18 History timolol maleate [Timoptic] 1 drp EACH EYE Q12HR 02/10/18 02/10/18 History warfarin [Coumadin] 3 mg PO DAILY 02/10/18 02/10/18 History Advance Directives Living Will: Yes Healthcare Surrogate: Yes () Physical Exam Vital Signs: Vital Signs - 24 hr 02/12/18 11:01 02/12/18 11:31 02/12/18 12:00 Temperature 97.5 F L Pulse Rate 100 H 97 H 96 H Respiratory Rate 19 20 20 Blood Pressure 152/75 H 156/74 H 126/79 Pulse Oximetry 96 96 96 02/12/18 12:01 02/12/18 12:59 02/12/18 13:00 Temperature 97.5 F L Pulse Rate 96 H 110 H 109 H Respiratory Rate 18 24 19 Blood Pressure 126/79 128/81 142/81 H Pulse Oximetry 96 95 95 02/12/18 13:30 02/12/18 13:34 02/12/18 13:49 Temperature Pulse Rate 94 H 100 H 91 H Respiratory Rate 23 25 H 24 Blood Pressure 154/109 H 177/112 H Pulse Oximetry 95 95 95 02/12/18 13:55 02/12/18 14:00 02/12/18 14:30 Temperature Pulse Rate 97 H 106 H 94 H Respiratory Rate 19 25 H 20 Blood Pressure 163/68 H 150/80 H 148/114 H Pulse Oximetry 95 95 95 02/12/18 14:35 02/12/18 15:00 02/12/18 15:01 Temperature Pulse Rate 100 H 93 H 93 H Respiratory Rate 28 H 19 19 Blood Pressure 162/121 H 123/59 L 123/59 L Pulse Oximetry 95 95 95 02/12/18 15:30 02/12/18 16:00 02/12/18 16:58 Temperature 98.5 F 98.5 F Pulse Rate 100 H 111 H 111 H Respiratory Rate 24 24 24 Blood Pressure 92/63 L 134/101 H 134/101 H Pulse Oximetry 95 96 96 02/12/18 17:00 02/12/18 17:01 02/12/18 17:19 Temperature 98.5 F Pulse Rate 111 H 104 H 111 H Respiratory Rate 24 23 29 H Blood Pressure 134/101 H 188/110 H Pulse Oximetry 96 95 95 02/12/18 17:31 02/12/18 17:49 02/12/18 18:16 Temperature Pulse Rate 113 H 105 H 105 H Respiratory Rate 24 21 21 Blood Pressure 230/175 H 132/72 171/97 H Pulse Oximetry 95 95 93 L 02/12/18 18:17 02/12/18 19:03 02/12/18 19:29 Temperature Pulse Rate 111 H 112 H Respiratory Rate 26 H 34 H Blood Pressure Pulse Oximetry 93 L 96 90 L 02/12/18 20:00 02/12/18 20:12 02/12/18 21:14 Temperature 99 F Pulse Rate 109 H 119 H 113 H Respiratory Rate 29 H 21 Blood Pressure 175/77 H Pulse Oximetry 96 95 02/12/18 21:33 02/12/18 22:00 02/12/18 22:01 Temperature Pulse Rate 114 H 107 H 114 H Respiratory Rate 21 22 Blood Pressure 173/72 H 169/78 H Pulse Oximetry 96 95 02/12/18 22:26 02/12/18 22:30 02/12/18 23:01 Temperature Pulse Rate 115 H 113 H 114 H Respiratory Rate 19 17 17 Blood Pressure 169/73 H 176/74 H Pulse Oximetry 96 95 95 02/12/18 23:31 02/13/18 00:00 02/13/18 00:01 Temperature 99 F Pulse Rate 102 H 102 H 108 H Respiratory Rate 22 21 Blood Pressure 166/71 H 169/84 H Pulse Oximetry 95 95 02/13/18 00:11 02/13/18 00:30 02/13/18 01:00 Temperature Pulse Rate 113 H 107 H 117 H Respiratory Rate 20 17 40 H Blood Pressure 181/74 H 193/133 H Pulse Oximetry 95 95 94 L 02/13/18 01:07 02/13/18 01:10 02/13/18 01:43 Temperature Pulse Rate 117 H 114 H 106 H Respiratory Rate 26 H 32 H 22 Blood Pressure 196/89 H 157/80 H Pulse Oximetry 95 96 96 02/13/18 02:00 02/13/18 02:33 02/13/18 03:01 Temperature Pulse Rate 102 H 103 H 93 H Respiratory Rate 20 17 22 Blood Pressure 177/79 H 110/70 124/82 Pulse Oximetry 95 95 95 02/13/18 04:00 02/13/18 04:08 02/13/18 05:00 Temperature 98 F Pulse Rate 103 H 110 H 109 H Respiratory Rate 21 21 36 H Blood Pressure 130/81 127/102 H Pulse Oximetry 95 95 95 02/13/18 05:15 02/13/18 05:19 02/13/18 05:30 Temperature Pulse Rate 106 H 103 H 102 H Respiratory Rate 24 30 H 22 Blood Pressure 141/104 H 168/71 H Pulse Oximetry 94 L 95 94 L 02/13/18 05:45 02/13/18 06:00 02/13/18 06:16 Temperature Pulse Rate 88 107 H 93 H Respiratory Rate 25 H 15 22 Blood Pressure 160/74 H 189/81 H 164/70 H Pulse Oximetry 96 95 95 02/13/18 06:30 02/13/18 06:45 02/13/18 07:00 Temperature Pulse Rate 91 H 100 H 92 H Respiratory Rate 22 19 19 Blood Pressure 168/74 H 149/63 H 169/75 H Pulse Oximetry 95 95 96 02/13/18 07:15 02/13/18 07:30 02/13/18 07:45 Temperature Pulse Rate 96 H 106 H 104 H Respiratory Rate 23 18 22 Blood Pressure 135/81 157/72 H 170/60 H Pulse Oximetry 95 95 95 02/13/18 08:00 02/13/18 08:16 12/06/18 08:30 Temperature 98 F Pulse Rate 93 H 96 H 117 H Respiratory Rate 18 25 H 21 Blood Pressure 167/81 H 162/81 H 188/83 H Pulse Oximetry 95 94 L 95 02/13/18 08:35 02/13/18 09:01 02/13/18 10:01 Temperature Pulse Rate 104 H 96 H 82 Respiratory Rate 25 H 16 14 Blood Pressure 158/79 H 147/77 H 171/77 H Pulse Oximetry 96 93 L 94 L 02/13/18 10:26 Temperature Pulse Rate 83 Respiratory Rate 14 Blood Pressure Pulse Oximetry 95 I&O: Intake & Output 02/11/18 02/12/18 02/13/18 02/14/18 06:59 06:59 06:59 06:59 Intake Total 800 / 800 697 / 697 265 / 265 Balance 800 / 800 697 / 697 265 / 265 Weight 100 kg 94.5 kg 94 kg Physical Exam: CONSTITUTIONAL/GENERAL: This is an adequately nourished patient, in no apparent distress. TUBES/LINES/DRAINS: PIV, palacios SKIN: Pale. No jaundice, rashes, or lesions. Ecchymoses on upper extremities. No wounds seen anteriorly. Skin temperature appropriate. Not diaphoretic. HEAD: Atraumatic. Normocephalic. EYES: Eyes deviate up into the right. Is able to track. Pupils equal sluggish reaction possibly due to pain medication. Bilateral lids with yellow crust at the lash line ENT: Hearing grossly normal. Nose without bleeding or purulent drainage. Tongue coated and white. NECK: Trachea midline. Supple, nontender. No palpable thyroid enlargement or nodularity. CARDIOVASCULAR: Regular rate and rhythm. No JVD. Peripheral pulses symmetric. RESPIRATORY/CHEST: Symmetric, unlabored respirations. Clear to auscultation. Breath sounds equal bilaterally. No wheezes, rales, or rhonchi. GASTROINTESTINAL: Abdomen soft, non-tender, nondistended. No hepato-splenomegaly , or palpable masses. No guarding. Bowel sounds present. GENITOURINARY: Without palpable bladder distension. Palacios catheter in place. MUSCULOSKELETAL: Extremities weak x4. Upper extremities edematous. LYMPHATICS: No palpable cervical or supraclavicular adenopathy. NEUROLOGICAL: Lethargic, arouses easily. Has difficulty finding some words. Questionable orientation though answer some questions appropriately. He is unable to tell me his location, year, or president. Follows commands weakly. Dorsiflexion equal plantar flexion unequal, left stronger than right. Baffle [place] are equal, weakly gives thumbs up. Has bilateral wrist restraints on. PSYCHIATRIC: Lethargic Diagnostic Tests Laboratory: Laboratory Results - last 72 hr 02/10/18 02/10/18 02/10/18 11:15 11:15 11:15 WBC 7.3 RBC 3.90 L Hgb 13.4 Hct 38.9 L MCV 99.8 MCH 34.4 H MCHC 34.5 RDW 14.6 Plt Count 172 D MPV 8.0 Neut % (Auto) 82.8 H Lymph % (Auto) 7.[address] % (Auto) 9.2 H Eos % (Auto) 0.4 Baso % (Auto) 0.3 Neut # (Auto) 6.0 Lymph # (Auto) 0.[address] # (Auto) 0.7 Eos # (Auto) 0.0 Baso # (Auto) 0.0 WBC Differential . Differential Comment Auto diff final PT 13.7 H INR 1.4 Sodium 136 Potassium 4.4 Chloride 103 Carbon Dioxide 26.2 Anion Gap 7 BUN 17 Creatinine 0.72 Estimated GFR Greater than 89 Random Glucose 126 H Hemoglobin A1c Calcium 9.5 Phosphorus Magnesium Total Bilirubin 1.6 H AST 24 ALT 22 Alkaline Phosphatase 114 Total Creatine Kinase Troponin I Total Protein 6.8 Albumin 3.4 Lipase 31 L Carcinoembryonic Ag Prostate Specific Ag Vitamin B12 TSH Free T4 Nasal Screen MRSA (PCR) 02/10/18 02/10/18 02/10/18 18:40 22:40 23:20 WBC RBC Hgb Hct MCV MCH MCHC RDW Plt Count MPV Neut % (Auto) Lymph % (Auto) Lane % (Auto) Eos % (Auto) Baso % (Auto) Neut # (Auto) Lymph # (Auto) Lane # (Auto) Eos # (Auto) Baso # (Auto) WBC Differential Differential Comment PT INR Sodium 138 Potassium 4.1 Chloride 103 Carbon Dioxide 28.6 Anion Gap 6 BUN 20 H Creatinine 0.70 Estimated GFR Greater than 89 Random Glucose 124 H Hemoglobin A1c Calcium 8.8 Phosphorus 2.8 Magnesium 1.8 Total Bilirubin 1.3 H AST 21 ALT 18 Alkaline Phosphatase 106 Total Creatine Kinase 50 42 Troponin I Less than 0.02 L 0.02 Total Protein 6.3 L Albumin 3.0 L Lipase Carcinoembryonic Ag Prostate Specific Ag Vitamin B12 TSH Free T4 Nasal Screen MRSA (PCR) Not detected 02/11/18 02/11/18 02/11/18 03:39 03:39 03:39 WBC 8.6 RBC 3.71 L Hgb 12.7 L Hct 36.8 L MCV 99.2 MCH 34.2 H MCHC 34.4 RDW 14.3 Plt Count 178 MPV 8.3 Neut % (Auto) 84.2 H Lymph % (Auto) 6.[address] % (Auto) 8.4 H Eos % (Auto) 0.6 Baso % (Auto) 0.5 Neut # (Auto) 7.2 Lymph # (Auto) 0.[address] # (Auto) 0.7 Eos # (Auto) 0.1 Baso # (Auto) 0.0 WBC Differential . Differential Comment Auto diff final PT 14.6 H INR 1.4 Sodium 137 Potassium 3.8 Chloride 104 Carbon Dioxide 25.7 Anion Gap 7 BUN 20 H Creatinine 0.66 Estimated GFR Greater than 89 Random Glucose 122 H Hemoglobin A1c Calcium 8.8 Phosphorus 2.4 L Magnesium 1.8 Total Bilirubin 1.7 H AST 18 ALT 21 Alkaline Phosphatase 100 Total Creatine Kinase Troponin I Total Protein 6.2 L Albumin 3.0 L Lipase Carcinoembryonic Ag Prostate Specific Ag Vitamin B12 TSH 0.364 Free T4 1.68 H Nasal Screen MRSA (PCR) 02/11/18 02/11/18 02/11/18 03:39 03:39 03:39 WBC RBC Hgb Hct MCV MCH MCHC RDW Plt Count MPV Neut % (Auto) Lymph % (Auto) Lane % (Auto) Eos % (Auto) Baso % (Auto) Neut # (Auto) Lymph # (Auto) Lane # (Auto) Eos # (Auto) Baso # (Auto) WBC Differential Differential Comment PT INR Sodium Potassium Chloride Carbon Dioxide Anion Gap BUN Creatinine Estimated GFR Random Glucose Hemoglobin A1c 5.3 Calcium Phosphorus Magnesium Total Bilirubin AST ALT Alkaline Phosphatase Total Creatine Kinase Troponin I Total Protein Albumin Lipase Carcinoembryonic Ag 20.0 H Prostate Specific Ag Vitamin B12 273 TSH Free T4 Nasal Screen MRSA (PCR) 02/11/18 02/12/18 02/12/18 03:39 05:14 05:14 WBC 7.4 RBC 3.78 L Hgb 12.8 L Hct 36.9 L MCV 97.5 MCH 33.8 MCHC 34.7 RDW 14.8 Plt Count 223 MPV 8.4 Neut % (Auto) 73.6 H Lymph % (Auto) 14.7 Lane % (Auto) 8.1 H Eos % (Auto) 2.8 Baso % (Auto) 0.8 Neut # (Auto) 5.5 Lymph # (Auto) 1.1 Lane # (Auto) 0.6 Eos # (Auto) 0.2 Baso # (Auto) 0.1 WBC Differential . Differential Comment Auto diff final PT 16.1 H INR 1.6 Sodium Potassium Chloride Carbon Dioxide Anion Gap BUN Creatinine Estimated GFR Random Glucose Hemoglobin A1c Calcium Phosphorus Magnesium Total Bilirubin AST ALT Alkaline Phosphatase Total Creatine Kinase Troponin I Total Protein Albumin Lipase Carcinoembryonic Ag Prostate Specific Ag 4.37 H Vitamin B12 TSH Free T4 Nasal Screen MRSA (PCR) 02/12/18 02/13/18 02/13/18 05:14 05:10 05:10 WBC 8.7 RBC 3.72 L Hgb 12.6 L Hct 36.5 L MCV 98.3 MCH 34.0 MCHC 34.6 RDW 15.1 Plt Count 233 MPV 8.4 Neut % (Auto) 81.2 H Lymph % (Auto) 9.1 Lane % (Auto) 8.4 H Eos % (Auto) 0.8 Baso % (Auto) 0.5 Neut # (Auto) 7.1 Lymph # (Auto) 0.[address] # (Auto) 0.7 Eos # (Auto) 0.1 Baso # (Auto) 0.0 WBC Differential . Differential Comment Auto diff final PT INR Sodium 138 139 Potassium 4.0 4.1 Chloride 104 104 Carbon Dioxide 26.9 26.8 Anion Gap 7 8 BUN 26 H 35 H Creatinine 0.66 0.79 Estimated GFR Greater than 89 Greater than 89 Random Glucose 91 117 H Hemoglobin A1c Calcium 9.1 9.4 Phosphorus 3.2 Magnesium 2.0 Total Bilirubin 1.5 H AST 28 ALT 25 Alkaline Phosphatase 110 Total Creatine Kinase Troponin I Total Protein 6.5 Albumin 3.1 L Lipase Carcinoembryonic Ag Prostate Specific Ag Vitamin B12 TSH Free T4 Nasal Screen MRSA (PCR) 02/13/18 09:13 WBC RBC Hgb Hct MCV MCH MCHC RDW Plt Count MPV Neut % (Auto) Lymph % (Auto) Lane % (Auto) Eos % (Auto) Baso % (Auto) Neut # (Auto) Lymph # (Auto) Lane # (Auto) Eos # (Auto) Baso # (Auto) WBC Differential Differential Comment PT 18.1 H INR 1.8 Sodium Potassium Chloride Carbon Dioxide Anion Gap BUN Creatinine Estimated GFR Random Glucose Hemoglobin A1c Calcium Phosphorus Magnesium Total Bilirubin AST ALT Alkaline Phosphatase Total Creatine Kinase Troponin I Total Protein Albumin Lipase Carcinoembryonic Ag Prostate Specific Ag Vitamin B12 TSH Free T4 Nasal Screen MRSA (PCR) Result Diagrams: 02/13/18 05:10 02/13/18 05:10 Imaging: Impressions Head MRI 02/12/18 07:07 CONCLUSION: 1. Limited study due to motion artifact on essentially all the images. 2. Diffuse bilateral cortical atrophy without significant change compared to the prior examination. 3. 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 4. No significant change compared to the prior exam. Patient/Family Conference Issues Discussed: * Palliative care role, purpose, approach * Additional medical, psychosocial, and spiritual history * Patients general health, functional status, and cognitive changes in the months leading up to the current hospitalization * Patient/family understanding of the current medical problems * Patient/family understanding of prognosis * Patients goals of care as best understood from advance directives and/or conversations and/or values * Current medical treatment options and benefits/burdens of those options * Likely scenarios comparing ongoing aggressive care with a transition to comfort measures only * Questions answered to the best of my ability * Palliative care contact information provided Assessment and Plan Pertinent Non-Medical Issues: Psychosocial: 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 Prior to this hospitalization he was living at home with his . He has a son who is also involved in his care. Spiritual: Revenue Enforcement Collection Agent available Legal: Patient does not appear currently capacitated to make his own decisions, it is unclear if he will regain capacity. He has designated his Esperanza and alternate Sancho Cárdenas as his legal decision makers. Has also has a living will. Ethical issues impacting care: None Important Contacts: Esperanza: [phone] Alternate healthcare surrogate Sancho Nelson: [phone] (H) [phone] (C) Son Luis Fernando: [phone] Prognosis: Patient with long history of metastatic colon cancer. He was originally diagnosed in 2006. He has had multiple re-occurrences of disease. Now has new spinal lesion per MRI, he is encephalopathic, extremely weak, is now bedbound and has been hemodynamically unstable requiring Cardene for blood pressure support. Along with the above, patient has some significant cardiac history including AVR and CABG. Given recurrence of disease, inability to tolerate palliative chemotherapy, significant functional decline, weakness, advanced age , new encephalopathy, and cardiac history, life expectancy is limited. Would be medically eligible for hospice services if goals were appropriate. Code Status: No Code DNR Plan: Legal decision maker:Patient does not appear currently capacitated to make his own decisions, it is unclear if he will regain capacity. He has designated his Esperanza and alternate Sancho Cárdenas as his legal decision makers Goals: Pending family meeting CODE STATUS: DNR SYMPTOMS: --Pain: Patient's had a several month history of progressive back pain, and continues to complain of back pain. Has required multiple PRN doses of parenteral morphine. Recommend starting methadone 5mg PO/SL Q8hrs scheduled. Recommend stopping statin as is may be contributing to myopathies. --Weakness: Has been having progressive weakness over the past several months. Had a fall about 10 days ago and had been bedbound since that time. Remains weak will likely continue to have progressive weakness secondary to disease progression, spinal metastases, encephalopathy. We will continue to monitor. Palliative care will continue to follow during hospital course as condition evolves, to assist patient/decision-maker with understanding of medical conditions, weighing benefits/burdens of treatment options, for clarification of goals of treatment. Additionally will assist with any symptoms of palliative concern Appreciation Thank you for the opportunity to participate in the care of Avi Quiroz. Attestation Collaborating Comments: Terence Attestation: To help prompt me to consider important information that might be impacting today's encounter and assessment, information from prior notes written by myself or my colleagues may have been "brought forward" into today's note. My signature on this note, however, is an attestation that I personally performed the exam, history, and/or decision-making noted today, and, unless otherwise indicated, the interactions with patient, family, and staff as well as the review of records all occurred today. I also attest that the listed assessment and stated plan reflect my best clinical judgment today based on the combination of historical information, prior notes, and today's exam/ interactions. When time spent is documented, it refers only to time spent today by the signer, or if indicated, combined time spent today by collaborating physician/nurse practitioner.
--- NOTE | 2018-02-13 11:16 | P.PNIM ---
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 Patient states this is been going on for at least the past 10 days, when he suffered a mechanical fall. Patient denied hitting his head or any loss of consciousness. States that he has been largely bedbound since that time due to pain. Patient states that pain is sharp with at least an 8 out of 10 worsened by motion And movements. Nothing has really alleviated the back pain. The patient denies any radiation of the pain. He denies any numbness, he denies any tingling, he denies any weakness of the lower extremities, he denies any saddle anesthesia or incontinence. He has a new patient appointment with Dr. Whitehead of neurology later this month is followed by Dr. Terrazas of oncology. Patient's pain became under somewhat control but then it was noted that his blood pressure was elevated over 250 systolic and patient was started on a Cardene drip after his oral medications were started and did not come close to getting his blood pressure under control. Therefore patient is admitted to the ICU on a Cardene drip will have other medications and try to wean him off. His past medical history is significant for hyperlipidemia prostate cancer hypertension overflow incontinence, neuropathy, colon cancer, glaucoma, and chronic anticoagulation for atrial fibrillation as well as history of mechanical heart valve also has a history of high cholesterol history of balanitis and history of malignant neoplasm of the colon. Has had a cholecystectomy as well as a colonoscopy and heart bypass surgery Patient denies any tobacco or alcohol. Family history is significant for hypertension also 12-4 PATIENT HAS BEEN SEEN BY NEUROLOGY WHO WANT MRI OF BRAIN AND CERVICAL REGION NEUROSURGERY HAS BEEN CONSULTED DUE TO L2 AREA SEVERE STENOSIS PT AND OT WEAN OFF OF CARDENE IF ABLE DW RN AND PT AND FAMILY AM LABS PT AND OT GOAL INR 2.5 TO 4.0 NOT AT GOAL ONLY 1.4- WILL NOT GET AGGRESSIVE TO GET TO GOAL UNTIL AFTER EVALUATED BY NEUROSURGERY IN CASE A PROCEDURE NEEDS TO BE DONE CONTINUE ON FULL DOSE LOVENOX 100MG SUBQ BID HAD MRI OF LUMBAR AND THORACIC SPINES 12-5 The patient is in bed is not talking at baseline. Does not appear in acute distress at this time. Vital signs fairly stable. Is saturating well on room air at this time. Blood pressure was noted elevated earlier today. Family at bedside discussed at length. Family decided for DNR CODE STATUS and considers talking with palliative care for further goals of care. The patient is noted not eating. Family is concerned. Will consult dietitian. Change diet to regular diet and add Ensure. Add Megace. 12-6 remains quite confused currently in soft restraints PATIENT IS A DNR PALLIATIVE CARE ON CASE NO BRAIN METS SEEN BY RADIATION ONCOLOGY HAS COLON CANCER WITH METS TO SPINE AM LABS COUMADIN IF ABLE TO TAKE AND CONTINUE LOVENOX BID DUE TO MECHANICAL VALVE Physical Exam Vital signs: Vital Signs 02/12/18 11:31 02/12/18 12:00 02/12/18 12:01 Temperature 97.5 F L 97.5 F L Pulse Rate 97 H 96 H 96 H Respiratory Rate 20 20 18 Blood Pressure 156/74 H 126/79 126/79 Pulse Oximetry 96 96 96 02/12/18 12:59 02/12/18 13:00 02/12/18 13:30 Temperature Pulse Rate 110 H 109 H 94 H Respiratory Rate 24 19 23 Blood Pressure 128/81 142/81 H 154/109 H Pulse Oximetry 95 95 95 02/12/18 13:34 02/12/18 13:49 02/12/18 13:55 Temperature Pulse Rate 100 H 91 H 97 H Respiratory Rate 25 H 24 19 Blood Pressure 177/112 H 163/68 H Pulse Oximetry 95 95 95 02/12/18 14:00 02/12/18 14:30 02/12/18 14:35 Temperature Pulse Rate 106 H 94 H 100 H Respiratory Rate 25 H 20 28 H Blood Pressure 150/80 H 148/114 H 162/121 H Pulse Oximetry 95 95 95 02/12/18 15:00 02/12/18 15:01 02/12/18 15:30 Temperature Pulse Rate 93 H 93 H 100 H Respiratory Rate 19 19 24 Blood Pressure 123/59 L 123/59 L 92/63 L Pulse Oximetry 95 95 95 02/12/18 16:00 02/12/18 16:58 02/12/18 17:00 Temperature 98.5 F 98.5 F 98.5 F Pulse Rate 111 H 111 H 111 H Respiratory Rate 24 24 24 Blood Pressure 134/101 H 134/101 H 134/101 H Pulse Oximetry 96 96 96 02/12/18 17:01 02/12/18 17:19 02/12/18 17:31 Temperature Pulse Rate 104 H 111 H 113 H Respiratory Rate 23 29 H 24 Blood Pressure 188/110 H 230/175 H Pulse Oximetry 95 95 95 02/12/18 17:49 02/12/18 18:16 02/12/18 18:17 Temperature Pulse Rate 105 H 105 H 111 H Respiratory Rate 21 21 26 H Blood Pressure 132/72 171/97 H Pulse Oximetry 95 93 L 93 L 02/12/18 19:03 02/12/18 19:29 02/12/18 20:00 Temperature Pulse Rate 112 H 109 H Respiratory Rate 34 H Blood Pressure Pulse Oximetry 96 90 L 96 02/12/18 20:12 02/12/18 21:14 02/12/18 21:33 Temperature 99 F Pulse Rate 119 H 113 H 114 H Respiratory Rate 29 H 21 21 Blood Pressure 175/77 H 173/72 H Pulse Oximetry 95 96 02/12/18 22:00 02/12/18 22:01 02/12/18 22:26 Temperature Pulse Rate 107 H 114 H 115 H Respiratory Rate 22 19 Blood Pressure 169/78 H Pulse Oximetry 95 96 02/12/18 22:30 02/12/18 23:01 02/12/18 23:31 Temperature Pulse Rate 113 H 114 H 102 H Respiratory Rate 17 17 22 Blood Pressure 169/73 H 176/74 H 166/71 H Pulse Oximetry 95 95 95 02/13/18 00:00 02/13/18 00:01 02/13/18 00:11 Temperature 99 F Pulse Rate 102 H 108 H 113 H Respiratory Rate 21 20 Blood Pressure 169/84 H Pulse Oximetry 95 95 02/13/18 00:30 02/13/18 01:00 02/13/18 01:07 Temperature Pulse Rate 107 H 117 H 117 H Respiratory Rate 17 40 H 26 H Blood Pressure 181/74 H 193/133 H 196/89 H Pulse Oximetry 95 94 L 95 02/13/18 01:10 02/13/18 01:43 02/13/18 02:00 Temperature Pulse Rate 114 H 106 H 102 H Respiratory Rate 32 H 22 20 Blood Pressure 157/80 H 177/79 H Pulse Oximetry 96 96 95 02/13/18 02:33 02/13/18 03:01 02/13/18 04:00 Temperature 98 F Pulse Rate 103 H 93 H 103 H Respiratory Rate 17 22 21 Blood Pressure 110/70 124/82 130/81 Pulse Oximetry 95 95 95 02/13/18 04:08 02/13/18 05:00 02/13/18 05:15 Temperature Pulse Rate 110 H 109 H 106 H Respiratory Rate 21 36 H 24 Blood Pressure 127/102 H 141/104 H Pulse Oximetry 95 95 94 L 02/13/18 05:19 02/13/18 05:30 02/13/18 05:45 Temperature Pulse Rate 103 H 102 H 88 Respiratory Rate 30 H 22 25 H Blood Pressure 168/71 H 160/74 H Pulse Oximetry 95 94 L 96 02/13/18 06:00 02/13/18 06:16 02/13/18 06:30 Temperature Pulse Rate 107 H 93 H 91 H Respiratory Rate 15 22 22 Blood Pressure 189/81 H 164/70 H 168/74 H Pulse Oximetry 95 95 95 02/13/18 06:45 02/13/18 07:00 02/13/18 07:15 Temperature Pulse Rate 100 H 92 H 96 H Respiratory Rate 19 19 23 Blood Pressure 149/63 H 169/75 H 135/81 Pulse Oximetry 95 96 95 02/13/18 07:30 02/13/18 07:45 02/13/18 08:00 Temperature 98 F Pulse Rate 106 H 104 H 93 H Respiratory Rate 18 22 18 Blood Pressure 157/72 H 170/60 H 167/81 H Pulse Oximetry 95 95 95 02/13/18 08:16 02/13/18 08:30 02/13/18 08:35 Temperature Pulse Rate 96 H 117 H 104 H Respiratory Rate 25 H 21 25 H Blood Pressure 162/81 H 188/83 H 158/79 H Pulse Oximetry 94 L 95 96 02/13/18 09:01 02/13/18 10:01 02/13/18 10:26 Temperature Pulse Rate 96 H 82 83 Respiratory Rate 16 14 14 Blood Pressure 147/77 H 171/77 H Pulse Oximetry 93 L 94 L 95 Intake & Output 02/12/18 02/13/18 02/13/18 18:59 06:59 18:59 Intake Total 25 / 25 240 / 240 Balance 25 / 25 240 / 240 Weight 94 kg Intake: Oral 25 / 25 240 / 240 Other: # Incontinent Voids 3 8 # Bowel Movements 0 Narrative: GENERAL: 82-year-old male in bed, SOMEWHAT verbal, however he is noted talking with the nurse today. He is lethargic. He however does not appear in acute distress at this time. TOOK HIS MEDS TODAY SKIN: Pale. Warm and dry. HEAD: Atraumatic. Normocephalic. EYES: Pupils equal and round. ENT: No nasal bleeding or discharge. NECK: Trachea midline. No JVD. CARDIOVASCULAR: IRRegular rate and rhythm. S1, S2 NO S3 OR S4 POSITIVE MECHANICAL CLICK RESPIRATORY: No accessory muscle use. GASTROINTESTINAL: Abdomen soft, non-tender, nondistended. MUSCULOSKELETAL: Mild hammertoes extremities without clubbing, cyanosis, or edema. NEUROLOGICAL: Lethargic, not following any commands. He is noted to move his arms and legs. He is in restraints at this time. Results - Labs CBC & Chem 7: 02/13/18 05:10 02/13/18 05:10 Laboratory Results - last 24 hr 02/13/18 02/13/18 02/13/18 05:10 05:10 09:13 WBC 8.7 RBC 3.72 L Hgb 12.6 L Hct 36.5 L MCV 98.3 MCH 34.0 MCHC 34.6 RDW 15.1 Plt Count 233 MPV 8.4 Neut % (Auto) 81.2 H Lymph % (Auto) 9.1 Hendry % (Auto) 8.4 H Eos % (Auto) 0.8 Baso % (Auto) 0.5 Neut # (Auto) 7.1 Lymph # (Auto) 0.8 L Hendry # (Auto) 0.7 Eos # (Auto) 0.1 Baso # (Auto) 0.0 WBC Differential . Differential Comment Auto diff final PT 18.1 H INR 1.8 Sodium 139 Potassium 4.1 Chloride 104 Carbon Dioxide 26.8 Anion Gap 8 BUN 35 H Creatinine 0.79 Estimated GFR Greater than 89 Random Glucose 117 H Calcium 9.4 - Imaging Impressions Head MRI 02/12/18 07:07 CONCLUSION: 1. Limited study due to motion artifact on essentially all the images. 2. Diffuse bilateral cortical atrophy without significant change compared to the prior examination. 3. 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 4. No significant change compared to the prior exam. - Procedures NONE Assessment and Plan - Plan Uncontrolled malignant hypertension -Place in the ICU -Was on Cardene drip, weaned off -Resume home medications -Pain control -PRN blood pressure meds with hydralazine and Catapres -Add Norvasc 5 mg p.o. daily OFF CARDENE Back pain status post fall -Pain control with p.o. pain medications and IV pain medications -Scheduled Robaxin -PT and OT to eval and treat SEEN BY RADIATION ONCOLOGY Chronic anticoagulation for mechanical heart valve -Continue on Lovenox 100 mg subcu twice daily -Continue on Coumadin -Daily PT/INR -Goal INR of 2.5-4.0 Atrial fibrillation continue on Coumadin and Lovenox for goal of 2.5-4.0 Colon cancer with metastasis to the spine MRI spine reviewed and findings discussed with the family , with multiple new mets amber the spine -Pain control -Consult Dr. TERRAZAS -Consult neurosurgery, doesn't recommend any surgical intervention at this time. Consult radiation oncology for evaluation -PT and OT to eval and treat -Continue on Xeloda Consult palliative care for goals of care. DNR Protein calorie malnutrition moderate to severe due to decreased p.o. intake. Change diet to regular diet. Add Megace, add Ensure dietary supplement. Consult dietitian. Do calorie count. Discussed with the family patient may need PEG tube if not eating Hypertension resume home medications and try and get under control with the Cardene drip-TRY TO WEAN OFF DRIP Hyperlipidemia resume statin Urinary retention continue home medication Neuropathy SUSPECT DUE TO CHEMO continue on Lyrica Glaucoma continue on timolol/Timoptic DVT prophylaxis continue on Coumadin and Lovenox GI prophylaxis with Pepcid Continue on good bowel regimen to prevent constipation Code Status: DNR Discussed Condition With: RN AND PT PT VERY CONFUSED AT THIS TIME FOLLOWS SOME COMMANDS Discharge Planning: Pending blood pressure control and able to come out of the ICU and pain to be controlled for his back
[2018-02-13] MEDS: Famotidine 20 MG Tablet PO SCH ×2 (12:24→21:02)
--- NOTE | 2018-02-13 14:33 | P.CONREH ---
History of Present Illness Primary Care Provider: Reyna Pastor MD Chief Complaint: BACK PAIN/INJURY PMFSH - History History Provided By: Family Member, Medical Record - Medical History Medical History: Medical History (Last Updated 02/13/18 @ 11:44 by KENYA Kohli) History of cerebellar stroke History of high blood pressure History of high cholesterol Hx of balanitis Hx of malignant neoplasm of colon - Surgical History Surgical History: Surgical History (Last Reviewed 02/13/18 @ 10:46 by KENYA Kohli) Hx of artificial heart valve replacement Hx of cholecystectomy Hx of colonoscopy Hx of heart bypass surgery - Family History Family History: Family History (Last Reviewed 02/13/18 @ 10:47 by KENYA Kohli) Other Family history of hypertension - Tobacco History Second Hand Smoke Exposure: No Tobacco Use In Past 30 Days: No Smoking Status: Never smoker - Alcohol History How Often Do You Have a Drink Containing Alcohol: 4 or more times a week - Substance Use History Substance History: No History of Abuse - Travel History History of Recent Travel: No Recent Travel in the [place] Within the Last 8 Weeks: No Recent Travel Out of the Country Within the Last 8 Weeks: No - Immunization History Tetanus Immunization: <5 Years Hx Influenza Vaccine This Season: No Medications and Allergies Active Medications: Active Medications Acetaminophen (Tylenol) 650 mg PO Q6H PRN PRN Reason: FEVER >101F Acetaminophen (Tylenol) 650 mg PO Q6H PRN PRN Reason: PAIN SCALE 1 TO 2 Al Hydroxide/Mg Hydroxide (Milk Of Magnyoselin Liq) 30 ml PO Q12H PRN PRN Reason: Mild Constipation Amlodipine Besylate (Norvasc) 5 mg PO DAILY [facility] Last Admin: 02/13/18 08:27 Dose: 5 mg Atorvastatin Calcium (Lipitor) 80 mg PO HS [facility] Last Admin: 02/12/18 21:07 Dose: 80 mg Bisacodyl (Dulcolax Supp) 10 mg RECTAL DAILY PRN PRN Reason: SEVERE CONSITIPATION Chlorhexidine Gluconate (Chlorhexidine 2% Cloth) 3 pack TOPICAL DAILY@0400 [facility] Stop: 02/16/18 03:59 Last Admin: 02/13/18 04:14 Dose: 3 pack Chlorhexidine Gluconate (Chlorhexidine 2% Cloth) 3 pack TOPICAL DAILY@0400 PRN PRN Reason: Extra cloth needed Stop: 02/16/18 03:59 Clonidine HCl (Catapres) 0.1 mg PO Q6H PRN PRN Reason: HYPERTENSION Enoxaparin Sodium (Lovenox Inj) 100 mg SQ Q12HR [facility] Last Admin: 02/13/18 08:27 Dose: 100 mg Famotidine (Pepcid) 20 mg PO BID [facility] Last Admin: 02/13/18 12:24 Dose: Not Given Famotidine (Pepcid Pf Inj) 20 mg IV.PUSH Q12HR [facility] Last Admin: 02/13/18 08:27 Dose: 20 mg Hydralazine HCl (Apresoline Inj) 20 mg IV.PUSH Q4H PRN PRN Reason: SBP>160, DBP>90 Last Admin: 02/12/18 14:48 Dose: 20 mg Nicardipine HCl 25 mg/ Sodium (Chloride) 250 mls @ 50 mls/hr IV.CONT TITRATE PRN; Protocol PRN Reason: Per Protocol Last Titration: 02/11/18 12:00 Dose: Infused Lactulose (Lactulose Liq) 30 ml PO DAILY PRN PRN Reason: SEVERE CONSITIPATION Lisinopril (Prinivil) 20 mg PO HS [facility] Last Admin: 02/12/18 21:08 Dose: 20 mg Megestrol Acetate (Megace Liq) 400 mg PO DAILY [facility] Last Admin: 02/13/18 08:28 Dose: 400 mg Methocarbamol (Robaxin) 1,000 mg PO Q8HR [facility] Last Admin: 02/13/18 05:26 Dose: Not Given Metoprolol Tartrate (Lopressor) 50 mg PO BID [facility] Last Admin: 02/13/18 08:27 Dose: 50 mg Morphine Sulfate (Morphine Inj) 2 mg IV.PUSH Q3H PRN PRN Reason: PAIN 3-5; IF UABLE TO TAKE PO Last Admin: 02/13/18 01:13 Dose: 2 mg Morphine Sulfate (Morphine Inj) 4 mg IV.PUSH Q3H PRN PRN Reason: BREAKTHROUGH PAIN Last Admin: 02/13/18 05:26 Dose: 4 mg Morphine Sulfate (Morphine Inj) 4 mg IV.PUSH Q1H PRN PRN Reason: Pain Scale 7-10 (Intractable) Last Admin: 02/12/18 02:38 Dose: 4 mg Morphine Sulfate (Morphine Inj) 4 mg IV.PUSH Q3H PRN PRN Reason: PAIN 6-10;IF UNABLE TO TAKE PO Naloxone HCl (Narcan Inj) 0.4 mg IV.PUSH UNSCH PRN PRN Reason: SEE LABEL COMMENTS Ondansetron HCl (Zofran Inj) 4 mg IV.PUSH Q6H PRN PRN Reason: NAUSEA OR VOMITING Last Admin: 02/11/18 20:10 Dose: 4 mg Ondansetron HCl (Zofran Inj) 4 mg IV.PUSH Q6H PRN PRN Reason: NAUSEA OR VOMITING Oxycodone/Acetaminophen (Percocet 10/325 Mg) 1 tab PO Q6H PRN PRN Reason: PAIN SCALE 6 TO 10 Oxycodone/Acetaminophen (Percocet 5/325 Mg) 1 tab PO Q6H PRN PRN Reason: PAIN SCALE 3 TO 5 Last Admin: 02/11/18 03:55 Dose: 1 tab Pt Own (Capecitabine [Xeloda] 1,500 Mg) Tablet 1 each PO BID [facility] Pharmacy Profile Note (Coumadin Consult Pharmacy) 1 each OTHER UNSCH PRN PRN Reason: PHARMACY DOCUMENTATION Pregabalin (Lyrica) 75 mg PO [facility] Last Admin: 02/12/18 21:08 Dose: 75 mg Quetiapine Fumarate (Seroquel) 25 mg PO BID PRN PRN Reason: AGITATION Senna/Docusate Sodium (Marlena-Colace) 1 tab PO BID [facility] Last Admin: 02/13/18 08:27 Dose: 1 tab Sennosides (Senokot) 17.2 mg PO Q12H PRN PRN Reason: Moderate Constipation Sodium Chloride (Ns Flush) 2 ml IV.FLUSH BID [facility] Last Admin: 02/13/18 08:28 Dose: 2 ml Sodium Chloride (Ns Flush) 2 ml IV.FLUSH PRN PRN PRN Reason: FLUSH AFTER USING IV ACCESS Timolol Maleate (Timolol 0.25% Drops) 1 drops EACH EYE Q12HR [facility] Last Admin: 02/13/18 08:28 Dose: 1 drops Tolterodine Tartrate (Detrol La) 4 mg PO DAILY [facility] Last Admin: 02/13/18 08:27 Dose: 4 mg Warfarin Sodium (Coumadin) 3 mg PO DAILY@1600 [facility] Last Admin: 02/12/18 17:14 Dose: 3 mg Allergies Allergy/AdvReac Type Severity Reaction Status Date / Time No Known Allergies Allergy Verified 02/01/18 19:28 Home Medications Medication Instructions Recorded Confirmed Type atorvastatin 80 mg PO QPM 02/01/18 02/10/18 History leuprolide (3 month) [Eligard (3 22.5 mg SUBCUT [id number] 02/01/18 02/10/18 History month)] lisinopril 20 mg PO QPM 02/01/18 02/10/18 History metoprolol tartrate 50 mg PO BID 02/01/18 02/10/18 History oxybutynin chloride 15 mg PO QPM 02/01/18 02/10/18 History pregabalin [Lyrica] 75 mg PO HS 02/01/18 02/10/18 History capecitabine [Xeloda] 1,500 mg PO Q12H 02/10/18 02/10/18 History timolol maleate [Timoptic] 1 drp EACH EYE Q12HR 02/10/18 02/10/18 History warfarin [Coumadin] 3 mg PO DAILY 02/10/18 02/10/18 History Exam - Physical Examination Vital Signs / I&O: Vital Signs 02/12/18 14:35 02/12/18 15:00 02/12/18 15:01 Temperature Pulse Rate 100 H 93 H 93 H Respiratory Rate 28 H 19 19 Blood Pressure 162/121 H 123/59 L 123/59 L Pulse Oximetry 95 95 95 02/12/18 15:30 02/12/18 16:00 02/12/18 16:58 Temperature 98.5 F 98.5 F Pulse Rate 100 H 111 H 111 H Respiratory Rate 24 24 24 Blood Pressure 92/63 L 134/101 H 134/101 H Pulse Oximetry 95 96 96 02/12/18 17:00 02/12/18 17:01 02/12/18 17:19 Temperature 98.5 F Pulse Rate 111 H 104 H 111 H Respiratory Rate 24 23 29 H Blood Pressure 134/101 H 188/110 H Pulse Oximetry 96 95 95 02/12/18 17:31 02/12/18 17:49 02/12/18 18:16 Temperature Pulse Rate 113 H 105 H 105 H Respiratory Rate 24 21 21 Blood Pressure 230/175 H 132/72 171/97 H Pulse Oximetry 95 95 93 L 02/12/18 18:17 02/12/18 19:03 02/12/18 19:29 Temperature Pulse Rate 111 H 112 H Respiratory Rate 26 H 34 H Blood Pressure Pulse Oximetry 93 L 96 90 L 02/12/18 20:00 02/12/18 20:12 02/12/18 21:14 Temperature 99 F Pulse Rate 109 H 119 H 113 H Respiratory Rate 29 H 21 Blood Pressure 175/77 H Pulse Oximetry 96 95 02/12/18 21:33 02/12/18 22:00 02/12/18 22:01 Temperature Pulse Rate 114 H 107 H 114 H Respiratory Rate 21 22 Blood Pressure 173/72 H 169/78 H Pulse Oximetry 96 95 02/12/18 22:26 02/12/18 22:30 02/12/18 23:01 Temperature Pulse Rate 115 H 113 H 114 H Respiratory Rate 19 17 17 Blood Pressure 169/73 H 176/74 H Pulse Oximetry 96 95 95 02/12/18 23:31 02/13/18 00:00 02/13/18 00:01 Temperature 99 F Pulse Rate 102 H 102 H 108 H Respiratory Rate 22 21 Blood Pressure 166/71 H 169/84 H Pulse Oximetry 95 95 02/13/18 00:11 02/13/18 00:30 02/13/18 01:00 Temperature Pulse Rate 113 H 107 H 117 H Respiratory Rate 20 17 40 H Blood Pressure 181/74 H 193/133 H Pulse Oximetry 95 95 94 L 02/13/18 01:07 02/13/18 01:10 02/13/18 01:43 Temperature Pulse Rate 117 H 114 H 106 H Respiratory Rate 26 H 32 H 22 Blood Pressure 196/89 H 157/80 H Pulse Oximetry 95 96 96 02/13/18 02:00 02/13/18 02:33 02/13/18 03:01 Temperature Pulse Rate 102 H 103 H 93 H Respiratory Rate 20 17 22 Blood Pressure 177/79 H 110/70 124/82 Pulse Oximetry 95 95 95 02/13/18 04:00 02/13/18 04:08 02/13/18 05:00 Temperature 98 F Pulse Rate 103 H 110 H 109 H Respiratory Rate 21 21 36 H Blood Pressure 130/81 127/102 H Pulse Oximetry 95 95 95 02/13/18 05:15 02/13/18 05:19 02/13/18 05:30 Temperature Pulse Rate 106 H 103 H 102 H Respiratory Rate 24 30 H 22 Blood Pressure 141/104 H 168/71 H Pulse Oximetry 94 L 95 94 L 02/13/18 05:45 02/13/18 06:00 02/13/18 06:16 Temperature Pulse Rate 88 107 H 93 H Respiratory Rate 25 H 15 22 Blood Pressure 160/74 H 189/81 H 164/70 H Pulse Oximetry 96 95 95 02/13/18 06:30 02/13/18 06:45 02/13/18 07:00 Temperature Pulse Rate 91 H 100 H 92 H Respiratory Rate 22 19 19 Blood Pressure 168/74 H 149/63 H 169/75 H Pulse Oximetry 95 95 96 02/13/18 07:15 02/13/18 07:30 02/13/18 07:45 Temperature Pulse Rate 96 H 106 H 104 H Respiratory Rate 23 18 22 Blood Pressure 135/81 157/72 H 170/60 H Pulse Oximetry 95 95 95 02/13/18 08:00 02/13/18 08:16 02/13/18 08:30 Temperature 98 F Pulse Rate 93 H 96 H 117 H Respiratory Rate 18 25 H 21 Blood Pressure 167/81 H 162/81 H 188/83 H Pulse Oximetry 95 94 L 95 02/13/18 08:35 02/13/18 09:01 02/13/18 10:01 Temperature Pulse Rate 104 H 96 H 82 Respiratory Rate 25 H 16 14 Blood Pressure 158/79 H 147/77 H 171/77 H Pulse Oximetry 96 93 L 94 L 02/13/18 10:26 02/13/18 10:31 02/13/18 11:01 Temperature Pulse Rate 83 99 H 106 H Respiratory Rate 14 18 17 Blood Pressure 118/84 157/88 H Pulse Oximetry 95 95 95 02/13/18 11:25 02/13/18 11:30 02/13/18 12:01 Temperature 97.7 F Pulse Rate 83 91 H Respiratory Rate 14 21 Blood Pressure 161/72 H 146/112 H Pulse Oximetry 95 95 95 02/13/18 12:25 Temperature Pulse Rate 111 H Respiratory Rate 16 Blood Pressure Pulse Oximetry 89 L Intake & Output 02/12/18 02/13/18 02/13/18 18:59 06:59 18:59 Intake Total 25 / 25 240 / 240 Balance 25 / 25 240 / 240 Weight 207 lb 3.752 oz Intake: Oral 25 / 25 240 / 240 Other: # Incontinent Voids 3 8 # Bowel Movements 0 Intake & Output 02/11/18 02/12/18 02/13/18 02/14/18 06:59 06:59 06:59 06:59 Intake Total 800 / 800 697 / 697 265 / 265 Balance 800 / 800 697 / 697 265 / 265 Weight 220 lb 7.396 oz 208 lb 5.389 oz 207 lb 3.752 oz Results - Labs CBC & Chem 7: 02/13/18 05:10 02/13/18 05:10 Labs: Laboratory Results - last 24 hr 02/13/18 02/13/18 02/13/18 05:10 05:10 09:13 WBC 8.7 RBC 3.72 L Hgb 12.6 L Hct 36.5 L MCV 98.3 MCH 34.0 MCHC 34.6 RDW 15.1 Plt Count 233 MPV 8.4 Neut % (Auto) 81.2 H Lymph % (Auto) 9.1 Bracken % (Auto) 8.4 H Eos % (Auto) 0.8 Baso % (Auto) 0.5 Neut # (Auto) 7.1 Lymph # (Auto) 0.8 L Bracken # (Auto) 0.7 Eos # (Auto) 0.1 Baso # (Auto) 0.0 WBC Differential . Differential Comment Auto diff final PT 18.1 H INR 1.8 Sodium 139 Potassium 4.1 Chloride 104 Carbon Dioxide 26.8 Anion Gap 8 BUN 35 H Creatinine 0.79 Estimated GFR Greater than 89 Random Glucose 117 H Calcium 9.4 - Imaging Impressions Head MRI 02/12/18 07:07 CONCLUSION: 1. Limited study due to motion artifact on essentially all the images. 2. Diffuse bilateral cortical atrophy without significant change compared to the prior examination. 3. 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 4. No significant change compared to the prior exam. Assessment and Plan - Plan Tried to do EMG on the patient. Was able to get Rt peroneal nerve with normal latency but decrease amplitude. Unfortunately anytime I stimulated the patient, he was going into tachycardia over 150 as per monitor and then would come done to below 100 or low 100s. For this reason it was decided to stop the test to avoid any cardiac complication on this patient. Would try to do the test once patient is medically stable. Thanks for this consult, please let us know to try and repeat the test again.
[2018-02-13] MEDS: Lisinopril 20 MG Tablet PO SCH (21:02)
[2018-02-13] MEDS: Pregabalin 75 MG Capsule PO SCH (21:02)
--- NOTE | 2018-03-10 09:03 | P.DN ---
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 Please evaluate Notified:: Service Spoke with:: Adrianna Date Notified:: 02/10/18 Time Notified:: 19:47 Ordering Provider: JIE 02/11/18 09:58 Consult to Rehab Medicine Routine Consulting Provider: Lucie Cha Reason for Consultation: EMG nerve conduction study of the legs and also, assist with Rehab recommendations Notified:: Service Spoke with:: Harleen Date Notified:: 02/11/18 Time Notified:: 10:01 Ordering Provider: ALFONZO 02/11/18 10:17 HUB Only Consult Order Routine Consulting Provider: Claudia Taylor 02/11/18 11:24 Consult to Neurosurgery Routine Consulting Provider: Darrell Hill Reason for Consultation: L2 TO L3 SEVERE SPINAL STENOSIS Notified:: Office Spoke with:: Sharlene Date Notified:: 02/11/18 Time Notified:: 12:07 Comments:: No answer [id number] Ordering Provider: BAILEY 02/11/18 16:20 Consult to Radiation Oncology Routine Consulting Provider: Fransisco Gutierrez Reason for Consultation: new T 12 mets Notified:: Service Spoke with:: Nilda Date Notified:: 02/11/18 Time Notified:: 16:33 Ordering Provider: JIE 02/12/18 17:45 Consult to Palliative Care Routine Consulting Provider: Narinder Pratt Reason for Consultation: goals of care Ordering Provider: ONI Pronouncing clinician: Claude Taylor - Admitting Diagnosis (1) Colon cancer (2) Encephalopathy (3) Lumbar spinal stenosis (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 Patient states this is been going on for at least the past 10 days, when he suffered a mechanical fall. Patient denied hitting his head or any loss of consciousness. States that he has been largely bedbound since that time due to pain. Patient states that pain is sharp with at least an 8 out of 10 worsened by motion And movements. Nothing has really alleviated the back pain. The patient denies any radiation of the pain. He denies any numbness, he denies any tingling, he denies any weakness of the lower extremities, he denies any saddle anesthesia or incontinence. He has a new patient appointment with Dr. Whitehead of neurology later this month is followed by Dr. Terrazas of oncology. Patient's pain became under somewhat control but then it was noted that his blood pressure was elevated over 250 systolic and patient was started on a Cardene drip after his oral medications were started and did not come close to getting his blood pressure under control. Therefore patient is admitted to the ICU on a Cardene drip will have other medications and try to wean him off. His past medical history is significant for hyperlipidemia prostate cancer hypertension overflow incontinence, neuropathy, colon cancer, glaucoma, and chronic anticoagulation for atrial fibrillation as well as history of mechanical heart valve also has a history of high cholesterol history of balanitis and history of malignant neoplasm of the colon. Has had a cholecystectomy as well as a colonoscopy and heart bypass surgery Patient denies any tobacco or alcohol. Family history is significant for hypertension also 02-11 PATIENT HAS BEEN SEEN BY NEUROLOGY WHO WANT MRI OF BRAIN AND CERVICAL REGION NEUROSURGERY HAS BEEN CONSULTED DUE TO L2 AREA SEVERE STENOSIS PT AND OT WEAN OFF OF CARDENE IF ABLE DW RN AND PT AND FAMILY AM LABS PT AND OT GOAL INR 2.5 TO 4.0 NOT AT GOAL ONLY 1.4- WILL NOT GET AGGRESSIVE TO GET TO GOAL UNTIL AFTER EVALUATED BY NEUROSURGERY IN CASE A PROCEDURE NEEDS TO BE DONE CONTINUE ON FULL DOSE LOVENOX 100MG SUBQ BID HAD MRI OF LUMBAR AND THORACIC SPINES 12-5 The patient is in bed is not talking at baseline. Does not appear in acute distress at this time. Vital signs fairly stable. Is saturating well on room air at this time. Blood pressure was noted elevated earlier today. Family at bedside discussed at length. Family decided for DNR CODE STATUS and considers talking with palliative care for further goals of care. The patient is noted not eating. Family is concerned. Will consult dietitian. Change diet to regular diet and add Ensure. Add Megace. 12-6 remains quite confused currently in soft restraints PATIENT IS A DNR PALLIATIVE CARE ON CASE NO BRAIN METS SEEN BY RADIATION ONCOLOGY HAS COLON CANCER WITH METS TO SPINE AM LABS COUMADIN IF ABLE TO TAKE AND CONTINUE LOVENOX BID DUE TO MECHANICAL VALVE PATIENT AT 23:55 PRONOUNCED BY emery grinder: NONE Brief History: Patient is a 82-year-old gentleman with a past medical history of colon cancer with known metastasis to the spine who presented to the emergency department via the EMS today for evaluation of low back pain. Patient states this is been going on for at least the past 10 days, when he suffered a mechanical fall. Patient denied hitting his head or any loss of consciousness. States that he has been largely bedbound since that time due to pain. Patient states that pain is sharp with at least an 8 out of 10 worsened by motion And movements. Nothing has really alleviated the back pain. The patient denies any radiation of the pain. He denies any numbness, he denies any tingling, he denies any weakness of the lower extremities, he denies any saddle anesthesia or incontinence. He has a new patient appointment with Dr. Whitehead of neurology later this month is followed by Dr. Trerazas of oncology. Patient's pain became under somewhat control but then it was noted that his blood pressure was elevated over 250 systolic and patient was started on a Cardene drip after his oral medications were started and did not come close to getting his blood pressure under control. Therefore patient is admitted to the ICU on a Cardene drip will have other medications and try to wean him off. His past medical history is significant for hyperlipidemia prostate cancer hypertension overflow incontinence, neuropathy, colon cancer, glaucoma, and chronic anticoagulation for atrial fibrillation as well as history of mechanical heart valve also has a history of high cholesterol history of balanitis and history of malignant neoplasm of the colon. Has had a cholecystectomy as well as a colonoscopy and heart bypass surgery Patient denies any tobacco or alcohol. Family history is significant for hypertension also Uncontrolled malignant hypertension -Place in the ICU -Was on Cardene drip, weaned off -Resume home medications -Pain control -PRN blood pressure meds with hydralazine and Catapres -Add Norvasc 5 mg p.o. daily OFF CARDENE Back pain status post fall -Pain control with p.o. pain medications and IV pain medications -Scheduled Robaxin -PT and OT to eval and treat SEEN BY RADIATION ONCOLOGY Chronic anticoagulation for mechanical heart valve -Continue on Lovenox 100 mg subcu twice daily -Continue on Coumadin -Daily PT/INR -Goal INR of 2.5-4.0 Atrial fibrillation continue on Coumadin and Lovenox for goal of 2.5-4.0 Colon cancer with metastasis to the spine MRI spine reviewed and findings discussed with the family , with multiple new mets amber the spine -Pain control -Consult Dr. TERRAZAS -Consult neurosurgery, doesn't recommend any surgical intervention at this time. Consult radiation oncology for evaluation -PT and OT to eval and treat -Continue on Xeloda Consult palliative care for goals of care. DNR Protein calorie malnutrition moderate to severe due to decreased p.o. intake. Change diet to regular diet. Add Megace, add Ensure dietary supplement. Consult dietitian. Do calorie count. Discussed with the family patient may need PEG tube if not eating Hypertension resume home medications and try and get under control with the Cardene drip-TRY TO WEAN OFF DRIP Hyperlipidemia resume statin Urinary retention continue home medication Neuropathy SUSPECT DUE TO CHEMO continue on Lyrica Glaucoma continue on timolol/Timoptic DVT prophylaxis continue on Coumadin and Lovenox GI prophylaxis with Pepcid Continue on good bowel regimen to prevent constipation Result Diagrams: 02/13/18 05:10 02/13/18 05:10 Imaging: ITS Impressions Lumbar Spine MRI 02/10/18 00:00 CONCLUSION: 1. Large infiltrative lesion of L4 again noted without pathologic fracture or perceptible extraosseous mass. No tumor-associated foraminal or spinal stenosis seen. 2. A new metastatic lesion as developed of the T12 vertebral body and please refer to the thoracic spine MRI report. 3. Multilevel degenerative changes as described, not significantly changed from longus. Thoracic Spine MRI 02/10/18 00:00 CONCLUSION: 1. Since October, a 2.7 cm metastatic lesion has developed of the T12 vertebral body and there is a mild pathologic compression fracture that appears acute or subacute. A benign-appearing mild compression fracture has developed of T12. 2. Considerable edema of the T12/L1 disc but without significant enhancement and there is vacuum phenomena on the comparison CT may be against infectious discitis. 3. No high-grade foraminal or spinal stenosis of the thoracic spine. Thoracic Spine CT 02/10/18 12:02 CONCLUSION: 1. Degenerative changes throughout the thoracic spine but no acute thoracic spine abnormality is identified. 2. Small left pleural effusion. Lumbar Spine CT 02/10/18 12:03 CONCLUSION: 1. No acute lumbar spine abnormality is identified. There is a stable abnormal sclerosis of the L4 vertebral body likely representing a metastatic bone lesion. No compression fracture is present. 2. Severe multilevel degenerative disc disease, as above, with spinal canal narrowing at L2-L3, L3-L4, and L4-L5. There is neural foraminal narrowing are also present, as above. Head MRI 02/12/18 07:07 CONCLUSION: 1. Limited study due to motion artifact on essentially all the images. 2. Diffuse bilateral cortical atrophy without significant change compared to the prior examination. 3. 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 4. No significant change compared to the prior exam. 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 Patient states this is been going on for at least the past 10 days, when he suffered a mechanical fall. Patient denied hitting his head or any loss of consciousness. States that he has been largely bedbound since that time due to pain. Patient states that pain is sharp with at least an 8 out of 10 worsened by motion And movements. Nothing has really alleviated the back pain. The patient denies any radiation of the pain. He denies any numbness, he denies any tingling, he denies any weakness of the lower extremities, he denies any saddle anesthesia or incontinence. He has a new patient appointment with Dr. Whitehead of neurology later this month is followed by Dr. Terrazas of oncology. Patient's pain became under somewhat control but then it was noted that his blood pressure was elevated over 250 systolic and patient was started on a Cardene drip after his oral medications were started and did not come close to getting his blood pressure under control. Therefore patient is admitted to the ICU on a Cardene drip will have other medications and try to wean him off. His past medical history is significant for hyperlipidemia prostate cancer hypertension overflow incontinence, neuropathy, colon cancer, glaucoma, and chronic anticoagulation for atrial fibrillation as well as history of mechanical heart valve also has a history of high cholesterol history of balanitis and history of malignant neoplasm of the colon. Has had a cholecystectomy as well as a colonoscopy and heart bypass surgery Patient denies any tobacco or alcohol. Family history is significant for hypertension also 12-4 PATIENT HAS BEEN SEEN BY NEUROLOGY WHO WANT MRI OF BRAIN AND CERVICAL REGION NEUROSURGERY HAS BEEN CONSULTED DUE TO L2 AREA SEVERE STENOSIS PT AND OT WEAN OFF OF CARDENE IF ABLE DW RN AND PT AND FAMILY AM LABS PT AND OT GOAL INR 2.5 TO 4.0 NOT AT GOAL ONLY 1.4- WILL NOT GET AGGRESSIVE TO GET TO GOAL UNTIL AFTER EVALUATED BY NEUROSURGERY IN CASE A PROCEDURE NEEDS TO BE DONE CONTINUE ON FULL DOSE LOVENOX 100MG SUBQ BID HAD MRI OF LUMBAR AND THORACIC SPINES 12-5 The patient is in bed is not talking at baseline. Does not appear in acute distress at this time. Vital signs fairly stable. Is saturating well on room air at this time. Blood pressure was noted elevated earlier today. Family at bedside discussed at length. Family decided for DNR CODE STATUS and considers talking with palliative care for further goals of care. The patient is noted not eating. Family is concerned. Will consult dietitian. Change diet to regular diet and add Ensure. Add Megace. 12-6 remains quite confused currently in soft restraints PATIENT IS A DNR PALLIATIVE CARE ON CASE NO BRAIN METS SEEN BY RADIATION ONCOLOGY HAS COLON CANCER WITH METS TO SPINE AM LABS COUMADIN IF ABLE TO TAKE AND CONTINUE LOVENOX BID DUE TO MECHANICAL VALVE
--- NOTE | 2018-03-10 09:09 | PQ ---
Physician Query Response Document PATIENT: Avi Quiroz : 1935 ADMIT DATE: 02/10/2018 4:23 PM DISCH DATE: 02/13/2018 11:53 PM RESPONDING PROVIDER #: BAILEY QUERY TEXT: Hypertension Specificity Hypertension is documented in the medical record. Please specify the type of hypertension such as: -Cardiorenal -Crisis -Emergency -Portal -Pulmonary -Secondary (please specify underlying cause) -Urgency -With heart disease -With hypertensive encephalopathy -With renal disease -Other (please specify in the medical record) The patient's Clinical Indicators include: ED report documents - Medical Decision Making: *My assessment and Findings: Patient received metopro lol and lisinopril here. The blood pressure was still about 230/115. Cardene drip started with excell ent blood pressure control achieved shortly thereafter. Unfortunately we will have to keep the patien t here for ongoing blood pressure management. Family members at bedside state that the patient has not taken any BP medications in "at least 3 days ". Differential Diagnosis: Musculoskeletal pain versus metastatic cancer hypertension versus hypertens nito urgency versus other. H Assessment and Plan : Uncontrolled malignant hypertension Query created by: Pilar Veras on 02/17/2018 9:57 AM RESPONSE TEXT: Provider disagreed with this CDI query. SEE DISCHARGE NOTE Electronically signed by: Claude Taylor 03/10/2018 9:04 AM
== END 2018-02-13 23:53 | disposition expired ==
LOC: NEPC 11:02 → NEDA 11:02 → HIMC 23:05
PROVIDERS: ADMIT Hospitalist; ATTEND Hospitalist
DX: E78.5 Hyperlipidemia, unspecified; Z68.26 Body mass index [BMI] 26.0-26.9, adult; Z66 Do not resuscitate; Z91.81 History of falling; Z51.5 Encounter for palliative care; G93.40 Encephalopathy, unspecified; T45.1X5A Adverse effect of antineoplastic and immunosuppressive drugs, initial encounter; M20.41 Other hammer toe(s) (acquired), right foot; I48.91 Unspecified atrial fibrillation; I10 Essential (primary) hypertension; E43 Unspecified severe protein-calorie malnutrition; M20.42 Other hammer toe(s) (acquired), left foot; G62.0 Drug-induced polyneuropathy; Z95.2 Presence of prosthetic heart valve; Z85.038 Personal history of other malignant neoplasm of large intestine; C79.51 Secondary malignant neoplasm of bone; R33.9 Retention of urine, unspecified; Z95.5 Presence of coronary angioplasty implant and graft; Z92.21 Personal history of antineoplastic chemotherapy; Z92.3 Personal history of irradiation; H40.9 Unspecified glaucoma; Z79.01 Long term (current) use of anticoagulants; Z95.1 Presence of aortocoronary bypass graft; R41.82 Altered mental status, unspecified; M48.061 Spinal stenosis, lumbar region without neurogenic claudication; M84.48XA Pathological fracture, other site, initial encounter for fracture; G89.3 Neoplasm related pain (acute) (chronic); Z78.1 Physical restraint status